=== PATIENT | male | born 1980 ===

== ENCOUNTER 2016-06-17 06:31 | Inpatient (IN) | payer MEDICAID, OTHER ==
[2016-06-17 06:36] VITALS: BMI 29.7
--- NOTE | 2016-06-17 06:49 | ED PDOC ---
Arrival/HPI - General Chief Complaint: Abdominal Pain Time Seen by Provider: 06/17/16 06:46 Historian: Patient - History of Present Illness Narrative History of Present Illness (Text): 06/17/16 06:47 Leonardo Beavers is a 35 year old male, whose past medical history includes pancreatitis and alcohol abuse, who presents to the Emergency department complaining of epigastric/LUQ pain for the past few hours. Patient states symptoms are consistent with previous pancreatitis flare-ups and notes his last alcoholic drink was earlier today. Patient also reports associated nausea. Patient denies any fever, chills, chest pain, shortness of breath, vomiting, diarrhea, urinary symptoms, back pain, neck pain, headache, dizziness, or any other complaints. Time/Duration: 4-6 hours Symptom Onset: Gradual Symptom Course: Unchanged Activities at Onset: Rest, Light Context: Home Past Medical History - Provider Review Nursing Documentation Reviewed: Yes - Cardiac Hx Cardiac Disorders: No - Pulmonary Hx Respiratory Disorders: No - Neurological Hx Neurological Disorder: No - HEENT Hx HEENT Disorder: No - Renal Hx Renal Disorder: No - Endocrine/Metabolic Hx Endocrine Disorders: No - Hematological/Oncological Hx Blood Disorders: No - Integumentary Hx Dermatological Disorder: No - Musculoskeletal/Rheumatological Hx Musculoskeletal Disorders: No - Gastrointestinal Hx Gastrointestinal Disorders: Yes Hx Gastritis: Yes Hx Pancreatitis: Yes - Genitourinary/Gynecological Hx Genitourinary Disorders: No - Psychiatric Hx Psychophysiologic Disorder: No Hx Substance Use: Yes (marijuana) - Surgical History Other/Comment: dental surgery Family/Social History - Physician Review Nursing Documentation Reviewed: Yes Family/Social History: No Known Family HX Smoking Status: Light Smoker < 10 Cigarettes Daily Hx Alcohol Use: Yes Frequency of alcohol use: Daily Hx Substance Use: Yes (marijuana) Allergies/Home Meds Allergies/Adverse Reactions: Allergies No Known Allergies Allergy (Verified 06/17/16 06:35) Review of Systems - Physician Review All systems were reviewed & negative as marked: Yes - Review of Systems Constitutional: Normal. absent: Fevers Eyes: Normal ENT: Normal Respiratory: Normal. absent: SOB, Cough Cardiovascular: Normal. absent: Chest Pain Gastrointestinal: Abdominal Pain Genitourinary Male: Normal. absent: Dysuria, Frequency, Hematuria, Urinary Output Changes Musculoskeletal: Normal. absent: Back Pain, Neck Pain Skin: Normal. absent: Rash Neurological: Normal. absent: Headache, Dizziness Endocrine: Normal Hemo/Lymphatic: Normal Psychiatric: Normal Physical Exam Vital Signs Reviewed: Yes Vital Signs Temp Pulse Resp BP Pulse Ox 06/17/16 06:43 98.5 F 120 H 16 119/105 H 100 Temperature: Afebrile Blood Pressure: Normal Pulse: Regular Respiratory Rate: Normal Appearance: Positive for: Well-Appearing, Non-Toxic, Comfortable Pain Distress: None Mental Status: Positive for: Alert and Oriented X 3 - Systems Exam Head: Present: Atraumatic, Normocephalic Pupils: Present: PERRL Extroacular Muscles: Present: EOMI Conjunctiva: Present: Normal Mouth: Present: Moist Mucous Membranes Neck: Present: Normal Range of Motion Respiratory/Chest: Present: Clear to Auscultation, Good Air Exchange. No: Respiratory Distress, Accessory Muscle Use Cardiovascular: Present: Regular Rate and Rhythm, Normal S1, S2. No: Murmurs Abdomen: Present: Tenderness (Epigastric/LUQ tenderness), Normal Bowel Sounds. No: Distention, Peritoneal Signs Back: Present: Normal Inspection Upper Extremity: Present: Normal Inspection. No: Cyanosis, Edema Lower Extremity: Present: Normal Inspection. No: Edema Neurological: Present: GCS=15, CN II-XII Intact, Speech Normal, Motor Func Grossly Intact, Normal Sensory Function Skin: Present: Warm, Dry, Normal Color. No: Rashes Psychiatric: Present: Alert, Oriented x 3, Normal Insight, Normal Concentration Medical Decision Making ED Course and Treatment: 06/17/16 06:47 Impression: 35 year old male complaining of epigastric/LUQ pain for the past few hours. Differential Diagnosis include but are not limited to: Plan: -- EKG -- Chest X-ray -- Labs, lipase -- Urinalysis -- IV fluids -- Zofran -- Pepcid -- Morphine -- Reassess and disposition Progress Notes: Reviewed EKG, sinus tachycardia at [address] bpm[address] Non-specific ST/T wave changes. 06/17/16 07:00 - RAD Interpretation Radiology Orders: 06/17/16 06:50 CHEST PORTABLE [RAD] Stat - Medication Orders Current Medication Orders: Sodium Chloride (Sodium Chloride 0.9%) 1,000 mls @ 999 mls/hr IV .Q1H1M STA Stop: 06/17/16 07:52 Last Admin: 06/17/16 06:56 Dose: 999 mls/hr Discontinued Medications Famotidine (Pepcid) 20 mg IVP STAT STA Stop: 06/17/16 06:53 Last Admin: 06/17/16 06:57 Dose: 20 mg Morphine Sulfate (Morphine) 4 mg IVP STAT STA Stop: 06/17/16 06:53 Last Admin: 06/17/16 06:58 Dose: 4 mg Morphine Sulfate (Morphine) Confirm Administered Dose 4 mg .ROUTE .STK-MED ONE Stop: 06/17/16 06:58 Last Admin: 06/17/16 06:58 Dose: Ondansetron HCl (Zofran Inj) 4 mg IVP ONCE ONE Stop: 06/17/16 06:53 Last Admin: 06/17/16 06:58 Dose: 4 mg - Transfer of Care Patient signed out to :Fortunato Garcia Pending Labs:: Labs/xray/reassess/final disposition - Scribe Statement The provider has reviewed the documentation as recorded by the Scribvaishnavi Mancilla All medical record entries made by the Radhaibvaishnavi were at my direction and personally dictated by me. I have reviewed the chart and agree that the record accurately reflects my personal performance of the history, physical exam, medical decision making, and the department course for this patient. I have also personally directed, reviewed, and agree with the discharge instructions and disposition. Disposition/Present on Arrival - Present on Arrival Any Indicators Present on Arrival: No History of DVT/PE: No History of Uncontrolled Diabetes: No Urinary Catheter: No History of Decub. Ulcer: No History Surgical Site Infection Following: None - Disposition Have Diagnosis and Disposition been Completed?: No Diagnosis: Abdominal pain Disposition Time: 07:00 Condition: STABLE
[2016-06-17] MEDS ORDERED: Morphine 4 mg/ml ISec IVP STA (06:52)
[2016-06-17] MEDS ORDERED: Sodium Chloride 0.9% 1,000 ML IV STA ×2 (06:52→07:45)
[2016-06-17] MEDS ORDERED: Morphine 4 mg/ml ISec ONE (06:57)
[2016-06-17 07:02] LABS: HEMATOCRIT 45.2 % (42.0-52.0); MEAN CELL VOLUME 94.8 fL (80.0-105.0); MEAN CORPUSCULAR HEMOGLOBIN 34.4 pg (25.0-35.0); MEAN CORPUSCULAR HGB CONC 36.3 g/dl (31.0-37.0); MEAN PLATELET VOLUME 11.2 fl (7.0-11.0); RED CELL DISTRIBUTION WIDTH 12.6 % (11.5-14.5); WHITE BLOOD COUNT 6.2 10^3/ul (4.5-11.0)
[2016-06-17 07:16] LABS: ALB/GLOB RATIO 1.2 (1.1-1.8); ALKALINE PHOSPHATASE 86 U/L (38-133); ALT/SGPT 100 U/L (7-56); AST/SGOT 87 U/L (15-59); BILIRUBIN,TOTAL 0.9 mg/dL (0.2-1.3); BLOOD UREA NITROGEN 9 mg/dL (7-21); CALCIUM 9.8 mg/dL (8.4-10.5); CARBON DIOXIDE 22 mmol/L (21-33); CHLORIDE 103 mmol/L (98-107); GFR AFRICAN-AMERICAN > 60; GLUCOSE,RANDOM 113 mg/dL (70-110); POTASSIUM 4.1 mmol/L (3.6-5.0); SODIUM 144 mmol/L (132-148); TOTAL PROTEIN 9.2 g/dL (5.8-8.3)
[2016-06-17 07:44] LABS: LIPASE 4524 U/L (23-300)
--- NOTE | 2016-06-17 07:57 | ED PDOC ---
Physical Exam Vital Signs Temp Pulse Resp BP Pulse Ox 06/17/16 10:36 97.8 F 93 H 18 129/93 H 100 06/17/16 09:27 98.2 F 98 H 18 153/95 H 97 06/17/16 06:43 98.5 F 120 H 16 119/105 H 100 Medical Decision Making ED Course and Treatment: 06/17/16 07:00 Patient signed out to me by Dr. Rodriguez. Follow up labs, X-Ray, Reeval, and Dispo. Patient is stable. No signs of alcohol withdrawal. No tremors. No faciculations. 06/17/16 07:27 Patient is complaining of abdominal discomfort, epigastric & LUQ tenderness with guarding. No peritoneal signs. Morphine IV ordered. 06/17/16 07:44 Chest x-ray read by me shows no pneumothorax, no pneumonia, no cardiomegaly, no infiltrates. 06/17/16 08:14 Patient continued to complain of abdominal pain. Dilaudid IV ordered. Labs showed elevated lipase consistent with pancreatitis. Discussed case with Dr. Soriano who accepted the case to the Medicine floor. Will continue to hydrate patient. - Lab Interpretations Lab Results: 06/17/16 05:50 06/17/16 05:50 Lab Results 06/17/16 05:50: WBC 6.2, RBC 4.77, Hgb 16.4, Hct 45.2, MCV 94.8, MCH 34.4, MCHC 36.3, RDW 12.6, Plt Count 258, MPV 11.2 H 06/17/16 05:50: Sodium 144, Potassium 4.1, Chloride 103, Carbon Dioxide 22, Anion Gap 23 H, BUN 9, Creatinine 0.8, Est GFR ( Amer) > 60, Est GFR (Non -Af Amer) > 60, Random Glucose 113 H, Calcium 9.8, Total Bilirubin 0.9, AST 87 H , ALT 100 H, Alkaline Phosphatase 86, Total Protein 9.2 H, Albumin 5.0 H, Globulin 4.2, Albumin/Globulin Ratio 1.2, Lipase 4524 H - RAD Interpretation Radiology Orders: 06/17/16 06:50 CHEST PORTABLE [RAD] Stat - Medication Orders Current Medication Orders: Hydromorphone HCl (Dilaudid) 1 mg IVP Q4H PRN PRN Reason: Pain, severe (8-10) Lorazepam (Ativan) 2 mg IVP Q3H PRN; Protocol PRN Reason: Agitation Lorazepam (Ativan) 2 mg IVP Q6H MICHELE PRN Reason: Protocol Ondansetron HCl (Zofran Inj) 4 mg IVP Q6H PRN PRN Reason: Nausea/Vomiting Pantoprazole Sodium (Protonix Inj) 40 mg IVP DAILY MICHELE Discontinued Medications Famotidine (Pepcid) 20 mg IVP STAT STA Stop: 06/17/16 06:53 Last Admin: 06/17/16 06:57 Dose: 20 mg Hydromorphone HCl (Dilaudid) 1 mg IVP STAT STA Stop: 06/17/16 08:41 Last Admin: 06/17/16 09:15 Dose: 1 mg Sodium Chloride (Sodium Chloride 0.9%) 1,000 mls @ 999 mls/hr IV .Q1H1M STA Stop: 06/17/16 07:52 Last Admin: 06/17/16 06:56 Dose: 999 mls/hr Sodium Chloride (Sodium Chloride 0.9%) 1,000 mls @ 999 mls/hr IV .Q1H1M STA Stop: 06/17/16 08:45 Last Admin: 06/17/16 07:52 Dose: 999 mls/hr Multivitamins/Vitamin C 10 ml/Thiamine HCl 100 mg/ Folic Acid 1 mg/ Dextrose 1, 011.2 mls @ 1,000 mls/hr IV .Q1H1M ONE Stop: 06/17/16 09:59 Morphine Sulfate (Morphine) 4 mg IVP STAT STA Stop: 06/17/16 06:53 Last Admin: 06/17/16 06:58 Dose: 4 mg Morphine Sulfate (Morphine) Confirm Administered Dose 4 mg .ROUTE .STK-MED ONE Stop: 06/17/16 06:58 Last Admin: 06/17/16 06:58 Dose: Morphine Sulfate (Morphine) 6 mg IVP STAT STA Stop: 06/17/16 07:32 Last Admin: 06/17/16 07:43 Dose: 6 mg Ondansetron HCl (Zofran Inj) 4 mg IVP ONCE ONE Stop: 06/17/16 06:53 Last Admin: 06/17/16 06:58 Dose: 4 mg - Scribe Statement The provider has reviewed the documentation as recorded by the Tasneem Mg Provider Attestation: All medical record entries made by the Tasneem were at my direction and personally dictated by me. I have reviewed the chart and agree that the record accurately reflects my personal performance of the history, physical exam, medical decision making, and the department course for this patient. I have also personally directed, reviewed, and agree with the discharge instructions and disposition. Disposition/Present on Arrival - Present on Arrival Any Indicators Present on Arrival: No History of DVT/PE: No History of Uncontrolled Diabetes: No Urinary Catheter: No History of Decub. Ulcer: No History Surgical Site Infection Following: None - Disposition Have Diagnosis and Disposition been Completed?: Yes Diagnosis: Abdominal pain Disposition: HOSPITALIZED Disposition Time: 10:40 Patient Plan: Admission Patient Problems: Current Active Problems Problem Status Onset Abdominal pain Acute Condition: FAIR
[2016-06-17] MEDS ORDERED: HYDROmorphone 1 mg/ml ISec IVP STA (08:40)
[2016-06-17] MEDS ORDERED: Multivitamin (MVI) 10 ML, Thiamine 100 MG, Folic Acid 1 MG in Dextrose 5% In Water 1,00... IV ONE (08:59)
[2016-06-17] MEDS ORDERED: HYDROmorphone 1 mg/ml ISec IVP PRN ×2 (09:01→16:00)
[2016-06-17 09:35] LABS: CHOLESTEROL 285 mg/dL (130-200)
[2016-06-17 09:38] LABS: URINE BILIRUBIN NEGATIVE (NEGATIVE); URINE BLOOD NEGATIVE (NEGATIVE); URINE GLUCOSE (UA) NEGATIVE (NEGATIVE); URINE KETONE TRACE mg/dL (NEGATIVE); URINE LEUKOCYTE ESTERASE NEGATIVE Leu/uL (NEGATIVE); URINE PROTEIN NEGATIVE mg/dL (<30 mg/dL); URINE UROBILINOGEN 0.2 E.U./dL (<1 E.U./dL)
[2016-06-17 09:40] LABS: URINE APPEARANCE CLEAR (CLEAR); URINE COLOR YELLOW (YELLOW)
--- NOTE | 2016-06-17 10:52 | CP.PCM.HP ---
<Senait Christina - Last Filed: 06/17/16 10:46> History of Present Illness - History of Present Illness History of Present Illness: CC; abd pain 35 year old male with past medical history of ETOH abuse, depression presents with abdominal pain ongoing for 3 days. patient states that pain has been progressively worsening. Pain is located in epigastric region and LUQ of abdomen and it radiates to straight back. Patient has been taking Motrin 600 mg for pain for past 3 days without relief. Patient also c/o of nausea and dry heaving with the pain ongoing since this morning. Patient states that he had one episode of pancreatitis 4 months ago and this pain is similar to his previous episode of pancreatitis. patient drinks ETOH 2 pints daily. Last drink was this morning. Denies having any fevers, chills, CP, SOB, anxiety, tremors, fevers or chills. PMHx: stated above Sx: correction of deviated spetum, wisdom teeth removal Meds: Pt unsure about the names of medications. He goes to [facility] in [facility] (closed today) Social: Drinks daily 2 pints, occasional tobacco and marijuana use. Lives with parents and is currently unemployed NKDA Present on Admission - Present on Admission Any Indicators Present on Admission: No Review of Systems - Review of Systems All systems: reviewed and no additional remarkable complaints except Past Patient History - Infectious Disease Hx of Infectious Diseases: None - Past Social History Smoking Status: Light Smoker < 10 Cigarettes Daily Chewing Tobacco Use: No Cigar Use: No Alcohol: > 2 Drinks/Day Drugs: Cannabis Home Situation {Lives}: With Family - CARDIAC Hx Cardiac Disorders: No - PULMONARY Hx Respiratory Disorders: No - NEUROLOGICAL Hx Neurological Disorder: No - HEENT Hx HEENT Problems: No - RENAL Hx Chronic Kidney Disease: No - ENDOCRINE/METABOLIC Hx Endocrine Disorders: No - HEMATOLOGICAL/ONCOLOGICAL Hx Blood Disorders: No - INTEGUMENTARY Hx Dermatological Problems: No - MUSCULOSKELETAL/RHEUMATOLOGICAL Hx Musculoskeletal Disorders: No - GASTROINTESTINAL Hx Gastrointestinal Disorders: Yes Hx Gastritis: Yes Hx Pancreatitis: Yes - GENITOURINARY/GYNECOLOGICAL Hx Genitourinary Disorders: No - PSYCHIATRIC Hx Psychophysiologic Disorder: No Hx Substance Use: Yes (marijuana) - SURGICAL HISTORY Other/Comment: dental surgery Meds Allergies/Adverse Reactions: Allergies Allergy/AdvReac Type Severity Reaction Status Date / Time No Known Allergies Allergy Verified 06/17/16 06:35 Physical Exam - Constitutional Appears: Non-toxic, No Acute Distress - Head Exam Head Exam: ATRAUMATIC - Eye Exam Eye Exam: EOMI Pupil Exam: PERRL - ENT Exam ENT Exam: Mucous Membranes Moist - Respiratory Exam Respiratory Exam: Clear to Auscultation Bilateral, NORMAL BREATHING PATTERN. absent: Rales, Rhonchi, Wheezes - Cardiovascular Exam Cardiovascular Exam: REGULAR RHYTHM, +S1, +S2. absent: Diastolic murmur, Gallop , Rubs, Systolic Murmur - GI/Abdominal Exam GI & Abdominal Exam: Normal Bowel Sounds, Soft, Tenderness (epigastric, RUQ and LUQ region ). absent: Distended, Firm, Guarding, Rigid - Extremities Exam Extremities exam: Negative for: pedal edema, tenderness - Neurological Exam Neurological exam: Alert, Oriented x3 - Psychiatric Exam Psychiatric exam: Normal Affect, Normal Mood - Skin Skin Exam: Dry, Intact, Normal Color, Warm Results - Vital Signs Recent Vital Signs: Last Vital Signs Temp 97.8 F 06/17/16 10:36 Pulse 93 H 06/17/16 10:36 Resp 18 06/17/16 10:36 BP 129/93 H 06/17/16 10:36 Pulse Ox 100 06/17/16 10:36 - Labs Result Diagrams: 06/17/16 05:50 06/17/16 05:50 Labs: Laboratory Results - last 24 hr 06/17/16 06/17/16 06/17/16 09:21 09:21 09:27 Triglycerides 404 H Cholesterol 285 H LDL Cholesterol Direct 173 H HDL Cholesterol 49 Urine Color Yellow Urine Appearance Clear Urine pH 7.0 Ur Specific Crucible 1.015 Urine Protein Negative Urine Glucose (UA) Negative Urine Ketones Trace H Urine Blood Negative Urine Nitrate Negative Urine Bilirubin Negative Urine Urobilinogen 0.2 Ur Leukocyte Esterase Negative Urine Opiates Screen Urine Methadone Screen Ur Barbiturates Screen Ur Phencyclidine Scrn Ur Amphetamines Screen U Benzodiazepines Scrn U Oth Cocaine Metabols U Cannabinoids Screen Alcohol, Quantitative 191 H 06/17/16 09:27 Triglycerides Cholesterol LDL Cholesterol Direct HDL Cholesterol Urine Color Urine Appearance Urine pH Ur Specific Crucible Urine Protein Urine Glucose (UA) Urine Ketones Urine Blood Urine Nitrate Urine Bilirubin Urine Urobilinogen Ur Leukocyte Esterase Urine Opiates Screen Positive H Urine Methadone Screen Negative Ur Barbiturates Screen Negative Ur Phencyclidine Scrn Negative Ur Amphetamines Screen Negative U Benzodiazepines Scrn Negative U Oth Cocaine Metabols Negative U Cannabinoids Screen Positive H Alcohol, Quantitative Assessment & Plan - Assessment and Plan (Free Text) Assessment: 35 year old male with past medical history of ETOH abuse and depression is admitted for acute pancreatitis. On blood work, lipase is 4524. LFTs are elevated at AST 87 ALT 100. WBC count is WNL. 1. Acute pancreatitis - GI consult requested - Abd US ordered - NPO - NS 100 cc - Zofran - Protonix - pain management with dilaudid 1 q4 prn 2. ETOH withdrawal - CIWA protocol - Ativan 2q3 prn & 2 q6 prn - admit to tele - Clonidine .1 mg tid prn for htn - banana bag - Seizure & fall precaution 3. Transaminitis - Abd US ordered - hep panel ordered - Will continue to monitor 4. Depression - Patient's pharmacy needs to be called for home medications Prophylaxis - SCDS Case discussed with attending Dr. Soriano - Date & Time Date: 06/17/16 Time: 10:54 <Jonathan Soriano - Last Filed: 06/17/16 11:26> Results - Vital Signs Recent Vital Signs: Last Vital Signs Temp 97.4 F L 06/17/16 10:52 Pulse 88 06/17/16 10:52 Resp 18 06/17/16 10:52 BP 145/77 06/17/16 10:52 Pulse Ox 100 06/17/16 10:36 - Labs Result Diagrams: 06/17/16 05:50 06/17/16 05:50 Labs: Laboratory Results - last 24 hr 06/17/16 06/17/16 06/17/16 09:21 09:21 09:27 Triglycerides 404 H Cholesterol 285 H LDL Cholesterol Direct 173 H HDL Cholesterol 49 Urine Color Yellow Urine Appearance Clear Urine pH 7.0 Ur Specific Crucible 1.015 Urine Protein Negative Urine Glucose (UA) Negative Urine Ketones Trace H Urine Blood Negative Urine Nitrate Negative Urine Bilirubin Negative Urine Urobilinogen 0.2 Ur Leukocyte Esterase Negative Urine Opiates Screen Urine Methadone Screen Ur Barbiturates Screen Ur Phencyclidine Scrn Ur Amphetamines Screen U Benzodiazepines Scrn U Oth Cocaine Metabols U Cannabinoids Screen Alcohol, Quantitative 191 H 06/17/16 09:27 Triglycerides Cholesterol LDL Cholesterol Direct HDL Cholesterol Urine Color Urine Appearance Urine pH Ur Specific Crucible Urine Protein Urine Glucose (UA) Urine Ketones Urine Blood Urine Nitrate Urine Bilirubin Urine Urobilinogen Ur Leukocyte Esterase Urine Opiates Screen Positive H Urine Methadone Screen Negative Ur Barbiturates Screen Negative Ur Phencyclidine Scrn Negative Ur Amphetamines Screen Negative U Benzodiazepines Scrn Negative U Oth Cocaine Metabols Negative U Cannabinoids Screen Positive H Alcohol, Quantitative Attending/Attestation - Attestation I have personally seen and examined this patient.: Yes I have fully participated in the care of the patient.: Yes I have reviewed all pertinent clinical information: Yes Notes (Text): 06/17/16 11:21 35 year old male with past medical history of chronic ETOH abuse and depression presents with abdominal pain secondary to acute pancreatitis. He has elevated lipase and LFTs as well. Hepatitis panel is ordered. US abdomen shows fatty liver without gallstones. He is NPO on iv fluids, analgesics and antiemetics. GI evaluation was requested. Will start banana bag and ativan lynda/prn for withdrawal symptoms. He was counselled on alcohol abstinence. Can resume antidepressant once home medication is confirmed from pharmacy. Jonathan Soriano MD Hospitalist.
[2016-06-17] MEDS ORDERED: Dextrose 5%/0.9% NS 1,000 ML IV SCH (11:15)
--- NOTE | 2016-06-17 11:16 | US ---
HISTORY: abd pain COMPARISON: None. TECHNIQUE: Sonographic evaluation of the abdomen. Note the examination is limited due to large body habitus and bowel gas. FINDINGS: LIVER: Measures 14.26 cm. Increased echogenicity of the liver parenchyma. Findings likely due to fatty infiltration however possibility of other infiltrative hepatocellular disease process not excluded. No mass. No intrahepatic bile duct dilatation. No evidence of ascites GALLBLADDER: Unremarkable. No gallstones. COMMON BILE DUCT: Measures 03.5 mm. No stones. No dilatation. PANCREAS: The pancreas poorly delineated. . No mass. No ductal dilatation. RIGHT KIDNEY: Measures 10.7 x 5.1 x 6.2 cm.Cm. Normal echogenicity. No calculus, mass, or hydronephrosis. LEFT KIDNEY: Measures 11.4 x 4.9 x 6.2cm. Normal echogenicity. No calculus, mass, or hydronephrosis. SPLEEN: Spleen is mildly enlarged measuring approximately 14.3 cm in greatest dimension. . No mass. AORTA: No aneurysmal dilatation. IVC: Unremarkable. OTHER FINDINGS: None. IMPRESSION: Limited study as detailed above. Findings consistent with fatty infiltration however other infiltrative hepatocellular disease process not completely excluded. Mild splenomegaly
--- NOTE | 2016-06-17 11:27 | RAD ---
HISTORY: abdominal pain COMPARISON: No prior FINDINGS: LUNGS: Poor inspiration with low lung volumes, mild crowded bronchovascular markings and mild bibasilar atelectasis. PLEURA: No significant pleural effusion identified, no pneumothorax apparent. CARDIOVASCULAR: Normal. OSSEOUS STRUCTURES: No significant abnormalities. VISUALIZED UPPER ABDOMEN: Normal. OTHER FINDINGS: None. IMPRESSION: Poor inspiration with low lung volumes, mild crowded bronchovascular markings and mild bibasilar atelectasis.
--- NOTE | 2016-06-17 13:30 | CARD ---
APPROVED REPORT EKG Measurement Heart [id number] <Conclusion> Sinus tachycardia with short VA Inferior infarct, age undetermined Abnormal ECG
[2016-06-17] MEDS ORDERED: HYDROmorphone 0.5 mg/0.5 ml ISec IVP STA (13:45)
[2016-06-17] MEDS ORDERED: HYDROmorphone 2 mg/ml ISec IVP PRN (13:54)
[2016-06-17] MEDS: HYDROmorphone 2 mg/ml ISec IVP PRN ×2 (17:23→22:08)
--- NOTE | 2016-06-17 22:16 | CON ---
DATE: 06/17/2016 SUBJECTIVE: This 35-year-old patient admitted with abdominal pain worsening for the past 3 days. He has a long history of ETOH alcohol. Last drink was about 2 hours before this ER visit. He had an episode of pancreatitis in the past about 4 months ago. He drinks alcohol about 2 pints a day and he is also taking Advil on and off for the pain. PAST MEDICAL HISTORY: Significant as above. SURGICAL HISTORY: Significant for surgery for deviated septum. The patient was last hospitalized in the [facility], for pancreatitis. SOCIAL HISTORY: Alcohol as above. Positive for occasional smoking and also marijuana. ALLERGIES: No known drug allergy. REVIEW OF SYSTEMS: Positive as above. Other systems reviewed and negative. PHYSICAL EXAMINATION: GENERAL: The patient is lying on the bed, not in acute distress. VITAL SIGNS: Temperature 97.4, blood pressure 140/93, respirations 18, and O2 saturation is 98%, pulse 88. HEENT: Atraumatic, anicteric. NECK: Supple. HEART: S1, S2 heard. LUNGS: Bilateral air entry present. ABDOMEN: Soft. There was tenderness present in the epigastric area. There is no rebound or guarding. EXTREMITIES: No edema. No cyanosis. LABORATORY DATA: Hemoglobin is 16.4, hematocrit 45.2, WBC 6.2, platelets 258. Chemistry showed total bilirubin 0.9, AST 87, ALT 100, Triglyceride 404, cholesterol 285, lipase 4534. The patient did have an ultrasound scan of the abdomen. Showed no gallstones, unremarkable, pancreas is poorly visualized. IMPRESSION: This 35-year-old patient admitted with abdominal pain, elevated lipase levels, history of alcohol use. The more likely cause is acute pancreatitis, probably secondary to alcohol. Elevated liver function tests may be related to alcohol use, but will need to rule out other chronic liver disease including hepatitis. The patient has been on omeprazole at home. The other problems include anxiety. The patient is also taking gabapentin, probably for neuropathy. RECOMMENDATION: 1. N.P.O. 2. IV fluids. 4. Serum B12, folate levels. 5. Will consider CT of the abdomen and pelvis with p.o. and IV contrast to further delineate the pancreas, which we will consider after the review of the labs in the a.m. As an acute pancreatitis, the first thing to do using IV hydration and CAT scan can be considered electively. CAT scan should be considered only after 24 to 48 hours after IV fluid resuscitation and optimization of the fluid balance. We will continue to closely follow up his care and suggest further management based on the clinical course. Sherman Fisher MD cc: [id number] TT: 06/17/2016 22:15:11 Confirmation # [id number] Dictation # [id number] MÓNICA
[2016-06-18] MEDS: HYDROmorphone 2 mg/ml ISec IVP PRN ×3 (04:23→20:57)
[2016-06-18] MEDS ORDERED: HYDROmorphone 1 mg/ml ISec IVP STA (06:02)
[2016-06-18] MEDS ORDERED: Metoprolol 1 mg/ml Inj IVP ONE ×2 (06:03→12:14)
[2016-06-18 06:30] LABS: HEMATOCRIT 48.7 % (42.0-52.0); MEAN CELL VOLUME 96.2 fL (80.0-105.0); MEAN CORPUSCULAR HEMOGLOBIN 34.2 pg (25.0-35.0); MEAN CORPUSCULAR HGB CONC 35.5 g/dl (31.0-37.0); MEAN PLATELET VOLUME 11.6 fl (7.0-11.0); PLATELET COUNT 171 10^3/uL (120.0-450.0); RED CELL DISTRIBUTION WIDTH 12.8 % (11.5-14.5); WHITE BLOOD COUNT 13.9 10^3/ul (4.5-11.0)
[2016-06-18 06:35] LABS: ADD MANUAL DIFF? YES
[2016-06-18 06:46] LABS: ALB/GLOB RATIO 1.1 (1.1-1.8); CARBON DIOXIDE 21 mmol/L (21-33); GFR AFRICAN-AMERICAN > 60; TOTAL PROTEIN 7.6 g/dL (5.8-8.3)
[2016-06-18 07:02] LABS: ALKALINE PHOSPHATASE 66 U/L (38-133); ALT/SGPT 71 U/L (7-56); AST/SGOT 62 U/L (15-59); BILIRUBIN,TOTAL 1.2 mg/dL (0.2-1.3); BLOOD UREA NITROGEN 8 mg/dL (7-21); CALCIUM 8.3 mg/dL (8.4-10.5); CHLORIDE 102 mmol/L (98-107); GLUCOSE,RANDOM 200 mg/dL (70-110); POTASSIUM 4.6 mmol/L (3.6-5.0); SODIUM 136 mmol/L (132-148)
[2016-06-18 07:20] LABS: LIPASE 3556 U/L (23-300)
[2016-06-18 07:34] LABS: NEUTROPHIL 89 % (50.0-70.0)
[2016-06-18] MEDS ORDERED: Metoprolol 1 mg/ml Inj IVP STA (07:49)
--- NOTE | 2016-06-18 15:34 | CP.PCM.PN ---
<Heath Cody - Last Filed: 06/18/16 15:31> Subjective - Date & Time of Evaluation Date of Evaluation: 06/18/16 Time of Evaluation: 08:00 - Subjective Subjective: Dr. Cody PGY 1 Hospitalist Note Patient seen and evaluated at bedside with attending physician. He states he is shaky and feels his heart racing but denies any chest pain, SOB, nausea, vomiting, fever, or chills. He continues to have abdominal pain but the medication is keeping it under control. Per nursing, he has had persistent tachycardia and elevated BP. No other adverse events reported. Objective - Vital Signs/Intake and Output Vital Signs (last 24 hours): Temp Pulse Resp BP Pulse Ox 98.9 F 152 H 20 132/110 H 97 06/18/16 11:44 06/18/16 12:39 06/18/16 11:44 06/18/16 12:39 06/18/16 05:20 Intake and Output: 06/18/16 06/18/16 06:59 18:59 Intake Total 1320 0 Output Total 450 100 Balance 870 -100 - Medications Medications: Current Medications Chlordiazepoxide (Librium) 50 mg PO Q6H MICHELE PRN Reason: Protocol Last Admin: 06/18/16 13:22 Dose: 50 mg Clonidine HCl (Catapres) 0.1 mg PO Q6H PRN PRN Reason: Systolic Blood Pressure Last Admin: 06/18/16 07:55 Dose: 0.1 mg Hydromorphone HCl (Dilaudid) 2 mg IVP Q6H PRN PRN Reason: Pain, severe (8-10) Last Admin: 06/18/16 11:48 Dose: 2 mg Dextrose/Sodium Chloride (Dextrose 5%/0.9% Ns 1000 Ml) 1,000 mls @ 100 mls/hr IV .Q10H MICHELE Last Admin: 06/17/16 11:39 Dose: 100 mls/hr Lorazepam (Ativan) 2 mg IVP Q3H PRN; Protocol PRN Reason: Agitation Last Admin: 06/18/16 11:44 Dose: 2 mg Ondansetron HCl (Zofran Inj) 4 mg IVP Q6H PRN PRN Reason: Nausea/Vomiting Pantoprazole Sodium (Protonix Inj) 40 mg IVP DAILY MICHELE Last Admin: 06/18/16 08:53 Dose: 40 mg - Labs Labs: 06/18/16 06:20 06/18/16 06:20 - Constitutional Appears: Non-toxic, No Acute Distress - Head Exam Head Exam: ATRAUMATIC, NORMOCEPHALIC - Eye Exam Eye Exam: EOMI, Normal appearance, PERRL Pupil Exam: NORMAL ACCOMODATION, PERRL - ENT Exam ENT Exam: Mucous Membranes Moist, Normal Oropharynx - Neck Exam Neck Exam: Full ROM, Normal Inspection - Respiratory Exam Respiratory Exam: Clear to Ausculation Bilateral, NORMAL BREATHING PATTERN. absent: Rales, Rhonchi, Wheezes - Cardiovascular Exam Cardiovascular Exam: Tachycardia, +S1, +S2. absent: Gallop, Rubs, Murmur - GI/Abdominal Exam GI & Abdominal Exam: Soft, Tenderness (epigastric), Normal Bowel Sounds. absent : Distended, Firm, Guarding - Extremities Exam Extremities Exam: Normal Inspection. absent: Pedal Edema, Tenderness - Back Exam Back Exam: NORMAL INSPECTION. absent: rash noted, tenderness - Neurological Exam Neurological Exam: Alert, Awake, CN II-XII Intact, Oriented x3 - Psychiatric Exam Psychiatric exam: Anxious - Skin Skin Exam: Dry, Intact, Normal Color, Warm Assessment and Plan - Assessment and Plan (Free Text) Assessment: 35 year old male with past medical history of ETOH abuse and depression is admitted for acute pancreatitis. On blood work, lipase is 4524 now 3556. LFTs are elevated but trending down. Mild leukocytosis but afebrile. Urine positive for opiates and cannabinoids. Plan: Acute pancreatitis * GI consulted, help appreciated * Afebrile w leukocytosis of 13.9 * ABD US showed findings consistent with fatty infiltration however other infiltrative hepatocellular disease not completely excluded [see full report] * Keep NPO * D5W @ 100 cc * Zofran * Protonix * pain management with dilaudid 2 q6 prn ETOH withdrawal * CIWA protocol * Start Librium 50 mg PO Q6H * Ativan 2q3 prn * on tele monitor * Seizure precaution * Fall precaution HTN * pain induced vs withdrawals * Clonidine .1 mg Q6H * Given Lopressor IV Transaminitis * ABD US showed findings consistent with fatty infiltration however other infiltrative hepatocellular disease not completely excluded [see full report] * hep panel ordered * Lipid panel: Triglycerides 404, Cholesterol 285, HDL 173, HDL 49 * Will continue to monitor Depression * Patient's pharmacy needs to be called for home medications Substance abuse * Urine tox positive for opiates and cannabinoids * alcohol level elevated * advised on cessation Prophylaxis * SCDS Case discussed with attending <Jonathan Soriano - Last Filed: 06/18/16 16:03> Objective - Vital Signs/Intake and Output Vital Signs (last 24 hours): Temp Pulse Resp BP Pulse Ox 98.9 F 152 H 20 132/110 H 97 06/18/16 11:44 06/18/16 12:39 06/18/16 11:44 06/18/16 12:39 06/18/16 05:20 Intake and Output: 06/18/16 06/18/16 06:59 18:59 Intake Total 1320 0 Output Total 450 100 Balance 870 -100 - Medications Medications: Current Medications Chlordiazepoxide (Librium) 50 mg PO Q6H MICHELE PRN Reason: Protocol Last Admin: 06/18/16 13:22 Dose: 50 mg Clonidine HCl (Catapres) 0.1 mg PO Q6H PRN PRN Reason: Systolic Blood Pressure Last Admin: 06/18/16 07:55 Dose: 0.1 mg Hydromorphone HCl (Dilaudid) 2 mg IVP Q6H PRN PRN Reason: Pain, severe (8-10) Last Admin: 06/18/16 11:48 Dose: 2 mg Dextrose/Sodium Chloride (Dextrose 5%/0.9% Ns 1000 Ml) 1,000 mls @ 100 mls/hr IV .Q10H [facility] Last Admin: 06/17/16 11:39 Dose: 100 mls/hr Lorazepam (Ativan) 2 mg IVP Q3H PRN; Protocol PRN Reason: Agitation Last Admin: 06/18/16 11:44 Dose: 2 mg Ondansetron HCl (Zofran Inj) 4 mg IVP Q6H PRN PRN Reason: Nausea/Vomiting Pantoprazole Sodium (Protonix Inj) 40 mg IVP DAILY [facility] Last Admin: 06/18/16 08:53 Dose: 40 mg - Labs Labs: 06/18/16 06:20 06/18/16 06:20 Attending/Attestation - Attestation I have personally seen and examined this patient.: Yes I have fully participated in the care of the patient.: Yes I have reviewed all pertinent clinical information, including history, physical exam and plan: Yes Notes (Text): 06/18/16 16:00 35 year old male with past medical history of chronic ETOH abuse and depression who presented with abdominal pain secondary to acute pancreatitis. He had elevated lipase and LFTs which are slowly improving. Hepatitis panel is pending. US abdomen showed fatty liver without gallstones. He is NPO on iv fluids, analgesics and antiemetics. GI evaluation was appreciated. Consider CT abd/pelvis in 24-48 hrs per GI recommendations. This morning he is hypertensive and tachycardic; consistent with ETOH withdrawal. He is s/p banana bag. He is on ativan prn. Librium 50mg q6h is added. He is also on clonidine 0.1mg q6h prn. He may receive lopressor prn if needed as well. TSH was normal. Echocardiogram is also ordered. He was counselled on alcohol abstinence. Lipid panel was reviewed. Consider starting cholesterol lowering agent once patient is eating and LFTs improve. Can resume antidepressant once home medication is confirmed from pharmacy. Jonathan Soriano MD Hospitalist.
[2016-06-18] MEDS: Dextrose 5%/0.9% NS 1,000 ML IV SCH (16:11)
--- NOTE | 2016-06-18 22:07 | CARD ---
APPROVED REPORT EKG Measurement Heart [id number] ID [id number] <Conclusion> Sinus tachycardia Inferior infarct, age undetermined Abnormal ECG
[2016-06-19] MEDS: Dextrose 5%/0.9% NS 1,000 ML IV SCH (02:25)
[2016-06-19] MEDS: HYDROmorphone 2 mg/ml ISec IVP PRN ×2 (04:50→12:55)
[2016-06-19] MEDS ORDERED: Metoprolol 1 mg/ml Inj IVP ONE (05:06)
[2016-06-19] MEDS ORDERED: Barium Sulfate Susp 2.1% w/v, 2.0% w/w 450 mL Bottle PO ONE (07:09)
--- NOTE | 2016-06-19 08:10 | PN ---
DATE: 06/18/2016 SUBJECTIVE: This patient was seen and evaluated earlier. The patient's girlfriend was at bedside. On examination, the patient is still complaining of significant epigastric abdominal pain. PHYSICAL EXAMINATION: VITAL SIGNS: Temperature is 99.3, pulse , blood pressure is 127/83. HEENT: Atraumatic, anicteric. NECK: Supple. HEART: S1, S2 heard. LUNGS: Bilateral normal vesicular breath sounds. ABDOMEN: Soft. There is tenderness present in the epigastric area. No rebound or guarding. EXTREMITIES: No edema noted. NEUROLOGIC: Alert, oriented. Moves all the extremities. LABORATORY DATA: Hemoglobin is 17.3, WBC count is elevated to 13.7, platelets 173. Total bilirubin is 1.2, AST 62, ALT 71, 235 . IMPRESSION: Acute pancreatitis, probably secondary to alcohol use. showed no gallstones. The patient had a similar episode in the past, admitted to the Hospital. The patient's alcohol in take was about 2 before the hospitalization, and his blood alcohol level was 191 at the time of admission. The patient also was marijuana positive. RECOMMENDATIONS: 1. Keep the patient n.p.o. 2. Would recommend mild fluid dehydration. 3. Would consider CT scan of the abdomen and pelvis with p.o. and IV contrast, pancreatic protocol, in a.m. Sherman Fisher MD cc: [id number] TT: 06/18/2016 23:20:23 Confirmation # [id number] Dictation # [id number] vn
[2016-06-19 08:30] LABS: ADD MANUAL DIFF? NO
[2016-06-19 08:39] LABS: BASO # 0.01 K/mm3 (0.0-2.0); BASO % 0.1 % (0.0-3.0); GRAN # 10.96 (1.4-6.5); GRAN % 79.4 % (50.0-68.0); HEMATOCRIT 43.7 % (42.0-52.0); LYMPH % 14.4 % (22.0-35.0); MEAN CELL VOLUME 96.3 fL (80.0-105.0); MEAN CORPUSCULAR HEMOGLOBIN 34.4 pg (25.0-35.0); MEAN CORPUSCULAR HGB CONC 35.7 g/dl (31.0-37.0); MEAN PLATELET VOLUME 11.9 fl (7.0-11.0); MONO # 0.8 (0.1-0.6); MONO % 6.1 % (1.0-6.0); PLATELET COUNT 133 10^3/uL (120.0-450.0); RED CELL DISTRIBUTION WIDTH 12.9 % (11.5-14.5); WHITE BLOOD COUNT 13.8 10^3/ul (4.5-11.0)
[2016-06-19 08:49] LABS: ALKALINE PHOSPHATASE 54 U/L (38-133); ALT/SGPT 57 U/L (7-56); AST/SGOT 81 U/L (15-59); BILIRUBIN,TOTAL 1.7 mg/dL (0.2-1.3); BLOOD UREA NITROGEN 21 mg/dL (7-21); CALCIUM 7.9 mg/dL (8.4-10.5); CARBON DIOXIDE 20 mmol/L (21-33); CHLORIDE 105 mmol/L (98-107); GFR AFRICAN-AMERICAN > 60; GLUCOSE,RANDOM 182 mg/dL (70-110); POTASSIUM 3.8 mmol/L (3.6-5.0); SODIUM 136 mmol/L (132-148); TOTAL PROTEIN 6.8 g/dL (5.8-8.3)
--- NOTE | 2016-06-19 09:28 | CP.PCM.PN ---
<Amanda Tate - Last Filed: 06/19/16 12:37> Subjective - Date & Time of Evaluation Date of Evaluation: 06/19/16 Time of Evaluation: 07:35 - Subjective Subjective: Pt seen and evaluated at bedside. Pt was standing and breathing comfortably. Denies n/v and continues to have epigastric pain. Not tremulous. Afebrile overnight. Objective - Vital Signs/Intake and Output Vital Signs (last 24 hours): Temp Pulse Resp BP Pulse Ox 98.7 F 147 H 20 130/90 96 06/19/16 05:48 06/19/16 05:48 06/19/16 05:48 06/19/16 05:48 06/19/16 05:48 Intake and Output: 06/19/16 06/19/16 06:59 18:59 Intake Total 0 Output Total 200 Balance -200 - Medications Medications: Current Medications Chlordiazepoxide (Librium) 50 mg PO Q6H MICHELE PRN Reason: Protocol Last Admin: 06/19/16 09:16 Dose: 50 mg Clonidine HCl (Catapres) 0.1 mg PO Q6H PRN PRN Reason: Systolic Blood Pressure Last Admin: 06/18/16 07:55 Dose: 0.1 mg Hydromorphone HCl (Dilaudid) 2 mg IVP Q6H PRN PRN Reason: Pain, severe (8-10) Last Admin: 06/19/16 04:50 Dose: 2 mg Dextrose/Sodium Chloride (Dextrose 5%/0.9% Ns 1000 Ml) 1,000 mls @ 125 mls/hr IV .Q8H [facility] Last Admin: 06/19/16 02:25 Dose: 125 mls/hr Lorazepam (Ativan) 2 mg IVP Q3H PRN; Protocol PRN Reason: Agitation Last Admin: 06/19/16 09:19 Dose: 2 mg Ondansetron HCl (Zofran Inj) 4 mg IVP Q6H PRN PRN Reason: Nausea/Vomiting Pantoprazole Sodium (Protonix Inj) 40 mg IVP DAILY [facility] Last Admin: 06/19/16 09:16 Dose: 40 mg - Labs Labs: 06/19/16 06:30 06/19/16 06:30 - Constitutional Appears: Non-toxic, No Acute Distress - Head Exam Head Exam: ATRAUMATIC, NORMOCEPHALIC - Eye Exam Eye Exam: EOMI, Normal appearance - Respiratory Exam Respiratory Exam: Clear to Ausculation Bilateral, NORMAL BREATHING PATTERN - GI/Abdominal Exam GI & Abdominal Exam: Soft. absent: Tenderness - Exam External exam: absent: Erythema, Lacerations - Extremities Exam Extremities Exam: Normal Capillary Refill, Normal Inspection - Back Exam Back Exam: absent: CVA tenderness (L), CVA tenderness (R) - Neurological Exam Neurological Exam: Alert, Awake - Skin Skin Exam: Intact, Warm Assessment and Plan - Assessment and Plan (Free Text) Assessment: 35 year old male with past medical history of ETOH abuse and depression is admitted for acute pancreatitis. On blood work, lipase is 4524 initially and is on downtrend. LFTs are elevated but trending down. Mild leukocytosis but afebrile. Urine positive for opiates and cannabinoids. Plan: Plan: Acute pancreatitis * GI consulted, help appreciated * Afebrile w leukocytosis of 13.8 * ABD US showed findings consistent with fatty infiltration of liver [see full report] * Keep NPO * NS @ 125 cc * Zofran * Protonix * pain management with dilaudid 2 q6 prn ETOH withdrawal * CIWA protocol * Librium 50 mg PO Q6H * Ativan 2q3 prn * on tele monitor * Seizure precaution * Fall precaution HTN * pain induced vs withdrawals * Clonidine .1 mg Q6H * Given Lopressor IV Transaminitis * ABD US showed findings consistent with fatty infiltration however other infiltrative hepatocellular disease not completely excluded [see full report] * hep panel ordered * Lipid panel: Triglycerides 404, Cholesterol 285, HDL 173, HDL 49 * Will continue to monitor Depression * Patient's pharmacy needs to be called for home medications Substance abuse * Urine tox positive for opiates and cannabinoids * alcohol level elevated * advised on cessation Prophylaxis * SCDS Case discussed with attending <Jazzy Osuna MD - Last Filed: 06/19/16 16:39> Objective - Vital Signs/Intake and Output Vital Signs (last 24 hours): Temp Pulse Resp BP Pulse Ox 99.1 F 135 H 22 145/98 H 96 06/19/16 12:00 06/19/16 12:00 06/19/16 12:00 06/19/16 12:00 06/19/16 05:48 Intake and Output: 06/19/16 06/19/16 06:59 18:59 Intake Total 0 0 Output Total 200 Balance -200 0 - Medications Medications: Current Medications Chlordiazepoxide (Librium) 50 mg PO Q6H MICHELE PRN Reason: Protocol Last Admin: 06/19/16 09:16 Dose: 50 mg Clonidine HCl (Catapres) 0.1 mg PO Q6H PRN PRN Reason: Systolic Blood Pressure Last Admin: 06/18/16 07:55 Dose: 0.1 mg Heparin Sodium (Porcine) (Heparin) 5,000 units SC Q8 MICHELE PRN Reason: Protocol Hydromorphone HCl (Dilaudid) 2 mg IVP Q6H PRN PRN Reason: Pain, severe (8-10) Last Admin: 06/19/16 12:55 Dose: 2 mg Sodium Chloride (Sodium Chloride 0.9%) 100 mls @ 125 mls/hr IV .Q48M MICHELE Lorazepam (Ativan) 2 mg IVP Q3H PRN; Protocol PRN Reason: Agitation Last Admin: 06/19/16 14:43 Dose: 2 mg Metoprolol Tartrate (Lopressor) 25 mg PO Q12 MICHELE Last Admin: 06/19/16 13:44 Dose: 25 mg Ondansetron HCl (Zofran Inj) 4 mg IVP Q6H PRN PRN Reason: Nausea/Vomiting Pantoprazole Sodium (Protonix Inj) 40 mg IVP DAILY [facility] Last Admin: 06/19/16 09:16 Dose: 40 mg - Labs Labs: 06/19/16 06:30 06/19/16 06:30 Attending/Attestation - Attestation I have personally seen and examined this patient.: Yes I have fully participated in the care of the patient.: Yes I have reviewed all pertinent clinical information, including history, physical exam and plan: Yes Notes (Text): 06/19/16 16:34 Patient was seen and examined with medical sociologist .Agreed with resident assessment and plan. 35 yrs old male with Acute Pancreatitis due to alcohol abuse, CT showed severe Pancreatitis.Patient is found to have sinus tachycardia on telemetry and is also hypertensive.We will start patient on Metoprilol and will also get cardiology consult. Lipase level are coming down.Transaminase level are stable.We will monitor LFT. We will start patient on clear liquid, if unable to tolerate, (Pain get worse) will start patient on PPN. Management plan was discussed in detail with patient Education was provided.
[2016-06-19] MEDS ORDERED: Sodium Chloride 0.9% 1,000 ML IV ONE (10:05)
[2016-06-19] MEDS ORDERED: Sodium Chloride 0.9% 100 ML IV SCH (12:05)
--- NOTE | 2016-06-19 12:51 | CT ---
PROCEDURE: CT Abdomen with and without intravenous contrast HISTORY: acute pancreatitis pancreatic protocol COMPARISON: None. TECHNIQUE: Axial images of the abdomen from lung bases to iliac crest with and without intravenous contrast enhancement. Coronal and sagittal reformats generated. Oral contrast also administered. Arterial phase could not be obtained as the patient experienced vomiting after contrast injection. Delayed postcontrast images were obtained as well as precontrast Intravenous contrast Dose: 150 cc of Omni 350 Radiation dose: Total exam DLP = 1877 mGy-cm. This CT exam was performed using one or more of the following dose reduction techniques: Automated exposure control, adjustment of the mA and/or kV according to patient size, and/or use of iterative reconstruction technique. FINDINGS: LOWER THORAX: Small bilateral pleural effusions and bibasilar consolidation LIVER: Diffuse fatty infiltration of the liver GALLBLADDER AND BILE DUCTS: Unremarkable. PANCREAS: Severe inflammatory changes are seen in the pancreas consistent with acute pancreatitis. There is extensive inflammation of the adjacent mesenteric fat planes. There is a small amount of fluid adjacent to the para renal space bilaterally as well as a small amount of fluid in the pericolic gutters. There is no evidence of pseudocyst SPLEEN: Unremarkable. ADRENALS: Unremarkable. No mass. KIDNEYS AND URETERS: Unremarkable. No hydronephrosis. No solid mass. VASCULATURE: Unremarkable. No aortic aneurysm. BOWEL: Unremarkable. No obstruction. No gross mural thickening. APPENDIX: Normal appendix. PERITONEUM: Unremarkable. No free fluid. No free air. LYMPH NODES: Unremarkable. No enlarged lymph nodes. BLADDER: Unremarkable. REPRODUCTIVE: Unremarkable. BONES: No acute fracture. OTHER FINDINGS: None. IMPRESSION: Severe acute pancreatitis
--- NOTE | 2016-06-19 15:33 | CARD ---
APPROVED REPORT EKG Measurement Heart [id number] MD [id number] <Conclusion> Sinus tachycardia Inferior infarct, age undetermined Abnormal ECG
--- NOTE | 2016-06-19 15:39 | CARD ---
APPROVED REPORT EKG Measurement Heart [id number] ME [id number] <Conclusion> Sinus tachycardia Inferior infarct, age undetermined Abnormal ECG
--- NOTE | 2016-06-19 16:40 | PN ---
DATE: 06/19/2016 HISTORY OF PRESENT ILLNESS: Seen and examined at the bedside earlier today. He just returned from C T scan with pancreatic protocol, which is showing severe acute pancreatitis. The patient wants to ea t. He is still having abdominal pain, 8/10. No nausea, vomiting, or reports of bleeding. He is hav ing loose stool. No reports of any overt GI bleed. VITAL SIGNS: Temperature is 99.1, blood pressure 145/98, pulse is 135, respirations 22, 96 on room a ir. LABORATORY DATA: WBC is 13.8, H and H are 15.6 and 43.7, platelets of 133. Sodium 136, potassium 3. 8, BUN 21, creatinine is 1.1. His total bilirubin is 1.7, AST 81, ALT 57, alkaline phosphatase is 54 . Lipase is 2104. PHYSICAL EXAMINATION: HEENT: Sclerae are anicteric. NECK: Supple. CARDIAC: S1, S2. LUNGS: Sounds are clear. ABDOMEN: With bowel sounds, soft, mildly distended, with positive tenderness, mostly to mid abdomen. No rebound. Minimal guarding. EXTREMITIES: Positive pulses. No edema. NEUROLOGIC: Awake and alert. Did not notice any tremors. ASSESSMENT: A 35-year-old male with history of ethyl alcohol abuse and depression, with abdominal pa in, here with acute pancreatitis. Status post CT scan with pancreatic protocol. This is reporting s evere pancreatitis. He does have elevated LFTs, which could be secondary to alcohol intoxication. H e did have an ultrasound which is showing fatty liver. Likely, the patient is having pain, has a his tory of ethyl alcohol and alcohol withdrawal, transaminitis, fatty liver, history of depression, subs tance abuse, positive for opiates and cannabinoids. PLAN: May have sips of liquid. Continue aggressive IV hydration. He is on IV fluids of normal sali ne. Continue GI prophylaxis, Protonix IV daily, Zofran p.r.n. nausea, Ativan p.r.n., Dilaudid for pa in. He is also on Librium and Catapres. The patient is pending eval with cardiology for tachycardia . The patient was seen and case discussed with Dr. Fisher. Elizabeth WYATT cc: [id number] TT: 06/19/2016 16:39:41 Confirmation # [id number] Dictation # [id number] dn
[2016-06-19] MEDS: Sodium Chloride 0.9% 1,000 ML IV SCH (19:47)
--- NOTE | 2016-06-20 00:03 | PN ---
DATE: 06/19/2016 ADDENDUM This is an addendum to the GI progress report dictated by Elizabeth Arce NP. The patient still complains of some pain in the epigastric area on examination. ASSESSMENT/RECOMMENDATION: Acute pancreatitis. We reviewed the CTscan, continue the present plan. We will continue the antibiotics. We will start the patient on a clear liquid diet. We will continue to closely follow up the patient. Sherman Fisher MD cc: [id number] TT: 06/20/2016 00:02:07 Confirmation # [id number] Dictation # [id number] maylin [employer]ES
[2016-06-20] MEDS: HYDROmorphone 2 mg/ml ISec IVP PRN ×4 (06:42→23:29)
[2016-06-20 06:58] LABS: ADD MANUAL DIFF? NO
[2016-06-20 07:22] LABS: ALKALINE PHOSPHATASE 55 U/L (38-133); ALT/SGPT 48 U/L (7-56); AST/SGOT 60 U/L (15-59); BILIRUBIN,TOTAL 1.9 mg/dL (0.2-1.3); BLOOD UREA NITROGEN 6 mg/dL (7-21); CALCIUM 7.4 mg/dL (8.4-10.5); CARBON DIOXIDE 23 mmol/L (21-33); CHLORIDE 102 mmol/L (98-107); GFR AFRICAN-AMERICAN > 60; GLUCOSE,RANDOM 127 mg/dL (70-110); POTASSIUM 3.1 mmol/L (3.6-5.0); SODIUM 133 mmol/L (132-148); TOTAL PROTEIN 6.5 g/dL (5.8-8.3)
[2016-06-20 07:30] LABS: BASO # 0.01 K/mm3 (0.0-2.0); BASO % 0.1 % (0.0-3.0); EOS % 0.1 % (1.5-5.0); GRAN # 8.04 (1.4-6.5); GRAN % 76.7 % (50.0-68.0); HEMATOCRIT 35.5 % (42.0-52.0); LYMPH # 1.6 (1.2-3.4); LYMPH % 15.7 % (22.0-35.0); MEAN CELL VOLUME 95.7 fL (80.0-105.0); MEAN CORPUSCULAR HGB CONC 35.5 g/dl (31.0-37.0); MEAN PLATELET VOLUME 12.1 fl (7.0-11.0); MONO # 0.8 (0.1-0.6); MONO % 7.4 % (1.0-6.0); PLATELET COUNT 106 10^3/uL (120.0-450.0); RED CELL DISTRIBUTION WIDTH 12.7 % (11.5-14.5); WHITE BLOOD COUNT 10.5 10^3/ul (4.5-11.0)
[2016-06-20] MEDS ORDERED: Potassium Chloride 40 mEq/30 ml LIQ UD PO ONE (07:33)
[2016-06-20] MEDS: Sodium Chloride 0.9% 1,000 ML IV SCH ×2 (10:19→17:12)
--- NOTE | 2016-06-20 13:43 | PN ---
DATE: 06/20/2016 Seen and examined at the bedside this afternoon. Family at bedside. The patient denies any nausea, vomiting. Abdominal pain is improved compared to yesterday. He reports it is 7/10. He is not havin g any more loose bowel movement, but yesterday he reported noticing blood after BM. No reports of bl eeding today. Tolerating a diet. He was advanced to full liquid. Denies any chest pains, no shortn ess of breath. VITAL SIGNS: Temperature is 99.6, his blood pressure 147/94, pulse rate 129, respirations 21. LABORATORIES: WBC is 10.5, H and H is 12.6 and 35.5, platelets of 106. Chem: Sodium 133, K 3.1, BU N is 6, creatinine 0.7, total bilirubin is 1.9, AST 60, ALT 48, alkaline phosphatase is 55, lipase is better at 788. PHYSICAL EXAMINATION: HEENT: Sclera is anicteric. NECK: Supple. CARDIAC: S1, S2. LUNG SOUNDS: With decreased breath sounds. No rales or wheeze. ABDOMEN: With bowel sounds, softly distended with positive tenderness mid abdomen, but it is better. No rebound or guarding. EXTREMITIES: No edema. NEUROLOGIC: Awake and alert. No tremors. ASSESSMENT: A 35-year-old male with history of ethyl alcohol, depression with abdominal pain. Repor ts improvement today. He has acute pancreatitis. The patient was sent for a CT scan with pancreatic protocol, reporting severe pancreatitis. He is noted to have elevated LFTs, likely secondary to alc ohol intoxication, status post ultrasound reporting fatty liver. PLAN: Diet advanced to full liquid. Continue IV hydration. Continue deep venous thrombosis prophyl axis. He is on heparin. He is getting Librium q. 6 and Ativan p.r.n. Continue Protonix. Monitor H and H. The patient was seen and case discussed with Dr. Fisher. Elizabeth Yazmin EDMUNDO cc: [id number] TT: 06/20/2016 13:42:21 Confirmation # [id number] Dictation # [id number]
--- NOTE | 2016-06-20 13:59 | CP.PCM.PN ---
<Amanda Tate - Last Filed: 06/20/16 16:38> Subjective - Date & Time of Evaluation Date of Evaluation: 06/20/16 Time of Evaluation: 07:35 - Subjective Subjective: Pt seen and evaluated at bedside. Pt denies SOB, n/v/chest pain. Epigastric pain is reported. No urinary complaints and normal BM yesterday. Reports walking and afebrile overnight. Objective - Vital Signs/Intake and Output Vital Signs (last 24 hours): Temp Pulse Resp BP Pulse Ox 99.6 F 129 H 21 147/94 H 94 L 06/20/16 12:00 06/20/16 12:00 06/20/16 12:00 06/20/16 12:00 06/20/16 06:00 Intake and Output: 06/20/16 06/20/16 06:59 18:59 Intake Total 3795 Output Total 400 Balance 3395 - Medications Medications: Current Medications Chlordiazepoxide (Librium) 50 mg PO Q6H [facility]HELE PRN Reason: Protocol Last Admin: 06/20/16 13:20 Dose: 50 mg Clonidine HCl (Catapres) 0.1 mg PO Q6H PRN PRN Reason: Systolic Blood Pressure Last Admin: 06/18/16 07:55 Dose: 0.1 mg Hydromorphone HCl (Dilaudid) 2 mg IVP Q4H PRN PRN Reason: Pain, severe (8-10) Last Admin: 06/20/16 11:02 Dose: 2 mg Sodium Chloride (Sodium Chloride 0.9%) 1,000 mls @ 160 mls/hr IV .Q6H15M [facility] Last Admin: 06/20/16 10:19 Dose: 160 mls/hr Lorazepam (Ativan) 2 mg IVP Q3H PRN; Protocol PRN Reason: Agitation Last Admin: 06/20/16 03:59 Dose: 2 mg Metoprolol Tartrate (Lopressor) 25 mg PO Q12 [facility] Last Admin: 06/20/16 10:53 Dose: 25 mg Ondansetron HCl (Zofran Inj) 4 mg IVP Q6H PRN PRN Reason: Nausea/Vomiting Pantoprazole Sodium (Protonix Inj) 40 mg IVP DAILY [facility] Last Admin: 06/20/16 10:17 Dose: 40 mg - Labs Labs: 06/20/16 06:45 06/20/16 06:45 - Constitutional Appears: Non-toxic, No Acute Distress - Head Exam Head Exam: ATRAUMATIC, NORMOCEPHALIC - Eye Exam Eye Exam: EOMI, Normal appearance - Respiratory Exam Respiratory Exam: Clear to Ausculation Bilateral, NORMAL BREATHING PATTERN - Cardiovascular Exam Cardiovascular Exam: Tachycardia, +S1, +S2 - GI/Abdominal Exam GI & Abdominal Exam: Soft. absent: Tenderness - Exam External exam: absent: Ecchymosis, Erythema - Extremities Exam Extremities Exam: absent: Pedal Edema, Tenderness - Neurological Exam Neurological Exam: Alert, Awake - Skin Skin Exam: Intact, Normal Color Assessment and Plan - Assessment and Plan (Free Text) Plan: 35 year old male with past medical history of ETOH abuse and depression is admitted for acute pancreatitis. On blood work, lipase is 4524 initially and is on downtrend (788 today). LFTs were elevated and trending down. Wbc currently 10.5 and afebrile. Urine positive for opiates and cannabinoids. Acute pancreatitis * GI consulted, help appreciated * Afebrile w wbc of 10.5 * ABD US showed findings consistent with fatty infiltration of liver [see full report] * full liq diet, advancing as tolerated * NS @ 160 cc * Zofran * Protonix * pain management with dilaudid 2 q4 prn ETOH withdrawal * CIWA protocol * Librium 50 mg PO Q8H * Ativan 2q3 prn for agitation * on tele monitor * Seizure precaution * Fall precaution HTN * pain induced vs withdrawals * Clonidine .1 mg Q6H * Given Lopressor IV * metoprolol NSR Tachycardia * metoprolol * NS160 cc/hr * cardiology consult, help appreciated Transaminitis * ABD US showed findings consistent with fatty infiltration however other infiltrative hepatocellular disease not completely excluded [see full report] * hep panel ordered * Lipid panel: Triglycerides 404, Cholesterol 285, HDL 173, HDL 49 * Will continue to monitor Depression: home medication is sertraline 100 mg PO QD, will restart with up taper tomorrow Substance abuse * Urine tox positive for opiates and cannabinoids * alcohol level elevated * advised on cessation Prophylaxis * SCDS, heparin Case discussed with attending <Enrrique NIETO,Jazzy - Last Filed: 06/20/16 17:11> Objective - Vital Signs/Intake and Output Vital Signs (last 24 hours): Temp Pulse Resp BP Pulse Ox 99.6 F 119 H 21 147/94 H 94 L 06/20/16 12:00 06/20/16 14:00 06/20/16 12:00 06/20/16 12:00 06/20/16 06:00 Intake and Output: 06/20/16 06/20/16 06:59 18:59 Intake Total 3795 Output Total 400 Balance 3395 - Medications Medications: Current Medications Chlordiazepoxide (Librium) 50 mg PO Q8H [facility] PRN Reason: Protocol Last Admin: 06/20/16 14:55 Dose: Not Given Clonidine HCl (Catapres) 0.1 mg PO Q6H PRN PRN Reason: Systolic Blood Pressure Last Admin: 06/18/16 07:55 Dose: 0.1 mg Hydromorphone HCl (Dilaudid) 2 mg IVP Q4H PRN PRN Reason: Pain, severe (8-10) Last Admin: 06/20/16 11:02 Dose: 2 mg Sodium Chloride (Sodium Chloride 0.9%) 1,000 mls @ 160 mls/hr IV .Q6H15M [facility] Last Admin: 06/20/16 10:19 Dose: 160 mls/hr Lorazepam (Ativan) 2 mg IVP Q3H PRN; Protocol PRN Reason: Agitation Last Admin: 06/20/16 03:59 Dose: 2 mg Metoprolol Tartrate (Lopressor) 25 mg PO Q12 [facility] Last Admin: 06/20/16 10:53 Dose: 25 mg Ondansetron HCl (Zofran Inj) 4 mg IVP Q6H PRN PRN Reason: Nausea/Vomiting Pantoprazole Sodium (Protonix Inj) 40 mg IVP DAILY [facility] Last Admin: 06/20/16 10:17 Dose: 40 mg - Labs Labs: 06/20/16 06:45 06/20/16 06:45 Attending/Attestation - Attestation I have personally seen and examined this patient.: Yes I have fully participated in the care of the patient.: Yes I have reviewed all pertinent clinical information, including history, physical exam and plan: Yes Notes (Text): 06/20/16 17:08 Patient was seen and examined with biomedical equipment technician .Agreed with resident assessment and plan. 35 yrs old male with Acute Pancreatitis due to alcohol abuse, CT showed severe Pancreatitis.Patient tachycardia is multifactorial due to pain and alcohol withdrawal.His tachycardia is improving.He is on Metoprolol.Echo is pending.Cardiology evaluation is pending/Alcohol withdrawal are also improving.He is tolerating clear liquid diet, we will advance to full liquid diet. The issue of chronic alcohol abuse was discussed in detail with patient. Management plan was discussed in detail with patient Education was provided.
--- NOTE | 2016-06-20 14:04 | CON ---
DATE: 06/20/2016 REASON FOR CONSULTATION: Sinus tachycardia. HISTORY OF PRESENT ILLNESS: The patient is a 35-year-old male who is originally from [place] who has a history of pancreatitis. He is an ETOH abuser. The first bout was a few months ago in an other hospital. He presented because of abdominal pain, nausea and vomiting after an alcoholic binge and is being treated for pancreatitis. The patient was noted to be tachycardic on the monitor and w hen the case was discussed with the medical team on the floor yesterday, I elected to increase the pa tient's IV fluid. The patient denies any prior cardiac history. There is no reported ventricular ar rhythmia and the patient denies any chest pain. The patient is still n.p.o. until now. MEDICATIONS: Ativan 2 mg intravenously q. 3 hours p.r.n., clonidine 0.1 mg q. 6 hours, Dilaudid 2 mg intravenously q. 4 hours p.r.n., subcutaneous heparin 5000 units q. 8 hours, Librium 50 mg q. 6 hour s p.r.n., Lopressor 25 mg twice a day, normal saline at 160 mL an hour, Zofran 4 mg intravenously q. 6 hours p.r.n. REVIEW OF SYSTEMS: No hematemesis or melena. No fever or chills. PHYSICAL EXAMINATION: GENERAL: The patient is a young middle-aged male who does not appear to be in any distress. VITAL SIGNS: Blood pressure 147/94, heart rate 123, temperature 99.6, respirations 21. HEENT: Normocephalic. NECK: No JVD. CHEST: Clear. HEART: S1, S2 regular. ABDOMEN: Significant epigastric tenderness. EXTREMITIES: No edema. LABORATORY DATA: Hemoglobin and hematocrit 12.6 and 35.5, white count 10.3, platelet count is declin ing at 106. Initial platelet count was 258. Urine drug screen is positive for cannabinoids and opia carmen. Alcohol on admission was 191,000. Today's potassium is 3.1. Lipase on admission was 3556. To day is 788. EKG revealed sinus tachycardia at rate of 136. Inferior Q-waves were noted. ASSESSMENT: 1. Acute pancreatitis. 2. Sinus tachycardia is a physiologic response to either pain or dehydration or both. The inferior Q-waves in this clinical scenario do not signify a prior myocardial infarction. 3. Hypokalemia. 4. Thrombocytopenia. RECOMMENDATIONS: Discontinue subcutaneous heparin for now. Optimize IV hydration and pain managemen t. Continue Lopressor at 25 mg twice a day. I will review the echocardiographic study performed todomenic rodriguez. Leonid Roberts MD cc: [id number] TT: 06/20/2016 14:03:45 Confirmation # [id number] Dictation # [id number] tn
--- NOTE | 2016-06-20 19:52 | CARD ---
APPROVED REPORT EXAM: Two-dimensional and M-mode echocardiogram with Doppler and color Doppler. INDICATION LVFX 2D DIMENSIONS Left Atrium (2D)4.4 (1.6-4.0cm)IVSd1.0 (0.7-1.1cm) LVDd4.7 (3.9-5.9cm)PWd1.0 (0.7-1.1cm) LVDs3.2 (2.5-4.0cm)FS (%) 31.5 % LVEF (%)59.4 (>50%) M-Mode DIMENSIONS Aortic Root3.30 (2.2-3.7cm)Aortic Cusp Exc.2.20 (1.5-2.0cm) Aortic Valve AoV Peak Lvaxgotw601.0cm/Che Peak GR.8mmHg Mitral Valve MV E Efsabzlp69.6cm/sMV A Youwibme18.9cm/sE/A ratio0.8 TDI Lateral E' Peak V11.70cm/sMedial E' Peak V8.48cm/sE/Lateral E'5.9 E/Medial E'8.1 Pulmonary Valve PV Peak Xnjripex05.4cm/sPV Peak Grad.3mmHg Tricuspid Valve TR Peak Znmebcdx433kp/sRAP WJFQYXNH02dlAeHM Peak Gr.27mmHg [id number] LEFT VENTRICLE The left ventricle is normal size. There is normal left ventricular wall thickness. The left ventricular function is normal. The left ventricular ejection fraction is within the normal range. There is normal LV segmental wall motion. Transmitral Doppler flow pattern is Grade I-abnormal relaxation pattern. RIGHT VENTRICLE The right ventricle is normal size. There is normal right ventricular wall thickness. The right ventricular systolic function is normal. ATRIA The left atrium is borderline dilated. The right atrium size is normal. AORTIC VALVE The aortic valve is normal in structure. No aortic regurgitation is present. MITRAL VALVE The mitral valve is normal in structure. TRICUSPID VALVE There is mild pulmonary hypertension. GREAT VESSELS The aortic root is normal in size. The IVC is normal in size and collapses >50% with inspiration. PERICARDIAL EFFUSION There is no pericardial effusion. <Conclusion> The left ventricle is normal size. There is normal left ventricular wall thickness. The left ventricular function is normal. The left ventricular ejection fraction is within the normal range. There is normal LV segmental wall motion. Transmitral Doppler flow pattern is Grade I-abnormal relaxation pattern.
[2016-06-20] MEDS: Potassium Chloride 20 mEq ER Tab PO SCH ×2 (20:13→23:30)
[2016-06-21] MEDS: HYDROmorphone 2 mg/ml ISec IVP PRN ×3 (03:59→19:01)
[2016-06-21 07:59] LABS: ADD MANUAL DIFF? NO
[2016-06-21 08:01] LABS: BASO # 0.01 K/mm3 (0.0-2.0); BASO % 0.1 % (0.0-3.0); EOS % 0.3 % (1.5-5.0); GRAN # 7.83 (1.4-6.5); HEMATOCRIT 32.8 % (42.0-52.0); LYMPH # 1.8 (1.2-3.4); MEAN CELL VOLUME 96.2 fL (80.0-105.0); MEAN CORPUSCULAR HEMOGLOBIN 33.7 pg (25.0-35.0); MEAN CORPUSCULAR HGB CONC 35.1 g/dl (31.0-37.0); MEAN PLATELET VOLUME 10.7 fl (7.0-11.0); MONO # 1.4 (0.1-0.6); MONO % 12.6 % (1.0-6.0); PLATELET COUNT 118 10^3/uL (120.0-450.0); RED CELL DISTRIBUTION WIDTH 12.8 % (11.5-14.5)
[2016-06-21 08:13] LABS: ALB/GLOB RATIO 0.9 (1.1-1.8); ALKALINE PHOSPHATASE 54 U/L (38-133); ALT/SGPT 44 U/L (7-56); AST/SGOT 44 U/L (15-59); BILIRUBIN,TOTAL 1.4 mg/dL (0.2-1.3); BLOOD UREA NITROGEN 4 mg/dL (7-21); CALCIUM 7.5 mg/dL (8.4-10.5); CARBON DIOXIDE 26 mmol/L (21-33); CHLORIDE 101 mmol/L (95-110); GFR AFRICAN-AMERICAN > 60; GLUCOSE,RANDOM 129 mg/dL (70-110); POTASSIUM 3.9 mmol/L (3.6-5.0); SODIUM 134 mmol/L (132-148); TOTAL PROTEIN 6.4 g/dL (5.8-8.3)
[2016-06-21] MEDS: Naproxen 550 mg Tab PO PRN (10:01)
[2016-06-21] MEDS: Sodium Chloride 0.9% 1,000 ML IV SCH ×3 (10:03→22:07)
--- NOTE | 2016-06-21 11:36 | CP.PCM.PN ---
<Amanda Tate - Last Filed: 06/21/16 13:58> Subjective - Date & Time of Evaluation Date of Evaluation: 06/21/16 Time of Evaluation: 07:45 - Subjective Subjective: Pt seen and evaluated at bedside. Pt denies SOB, n/v, urinary symptoms, and BM changes. Tolerating diet. Febrile episode yesterday around 1800 with 100.6. Resolved. Objective - Vital Signs/Intake and Output Vital Signs (last 24 hours): Temp Pulse Resp BP Pulse Ox 98.7 F 123 H 22 142/95 H 96 06/21/16 06:00 06/21/16 10:05 06/21/16 06:00 06/21/16 10:05 06/21/16 06:00 Intake and Output: 06/21/16 06/21/16 06:59 18:59 Intake Total 4440 Output Total 900 Balance 3540 - Medications Medications: Current Medications Chlordiazepoxide (Librium) 50 mg PO Q12 [facility] PRN Reason: Protocol Last Admin: 06/21/16 10:02 Dose: 50 mg Clonidine HCl (Catapres) 0.1 mg PO Q6H PRN PRN Reason: Systolic Blood Pressure Last Admin: 06/21/16 10:05 Dose: 0.1 mg Hydromorphone HCl (Dilaudid) 2 mg IVP Q4H PRN PRN Reason: Pain, severe (8-10) Last Admin: 06/21/16 10:06 Dose: 2 mg Sodium Chloride (Sodium Chloride 0.9%) 1,000 mls @ 160 mls/hr IV .Q6H15M [facility] Last Admin: 06/21/16 10:03 Dose: 160 mls/hr Lorazepam (Ativan) 1 mg IVP Q3H PRN; Protocol PRN Reason: Agitation Metoprolol Tartrate (Lopressor) 50 mg PO Q12 [facility] Naproxen (Anaprox Ds) 550 mg PO BID PRN PRN Reason: Fever >100.4 F Last Admin: 06/21/16 10:01 Dose: 550 mg Ondansetron HCl (Zofran Inj) 4 mg IVP Q6H PRN PRN Reason: Nausea/Vomiting Pantoprazole Sodium (Protonix Inj) 40 mg IVP DAILY [facility] Last Admin: 06/21/16 10:02 Dose: 40 mg - Labs Labs: 06/21/16 07:20 06/21/16 07:20 - Constitutional Appears: Non-toxic, No Acute Distress - Head Exam Head Exam: ATRAUMATIC, NORMOCEPHALIC - Eye Exam Eye Exam: EOMI, Normal appearance - ENT Exam ENT Exam: Mucous Membranes Moist, Normal Exam - Respiratory Exam Respiratory Exam: Clear to Ausculation Bilateral, NORMAL BREATHING PATTERN - Cardiovascular Exam Cardiovascular Exam: Tachycardia, +S1, +S2 - GI/Abdominal Exam GI & Abdominal Exam: Soft. absent: Tenderness - Exam External exam: absent: Ecchymosis, Erythema - Extremities Exam Extremities Exam: absent: Pedal Edema, Tenderness - Neurological Exam Neurological Exam: Alert, Awake - Skin Skin Exam: Intact, Normal Color Assessment and Plan - Assessment and Plan (Free Text) Plan: 35 year old male with past medical history of ETOH abuse and depression is admitted for acute pancreatitis. On blood work, lipase is 4524 initially and is on downtrend (788). LFTs were elevated and trending down. Wbc currently 11. Urine positive for opiates and cannabinoids. Acute pancreatitis * GI consulted, help appreciated * wbc of 11 * ABD US showed findings consistent with fatty infiltration of liver [see full report] * full liq diet * NS @ 160 cc * Zofran * Protonix * pain management with dilaudid 2 q6 prn ETOH withdrawal * CIWA protocol * Librium 50 mg PO Q12H * Ativan 1q3 prn for agitation * on tele monitor * Seizure precaution * Fall precaution HTN * pain induced vs withdrawals * Clonidine .1 mg Q6H * Given Lopressor IV * metoprolol increased to 50 qd today NSR Tachycardia * metoprolol * NS 160 cc/hr * cardiology consult, help appreciated * ECHO report shows normal EF with grade I abnormal relaxation pattern. Transaminitis * ABD US showed findings consistent with fatty infiltration however other infiltrative hepatocellular disease not completely excluded [see full report] * hep panel ordered * Lipid panel: Triglycerides 404, Cholesterol 285, HDL 173, HDL 49 * Will continue to monitor Depression: home medication is sertraline 100 mg PO QD, started on 50 mg PO QD, with taper up of 25mg PO once a week Substance abuse * Urine tox positive for opiates and cannabinoids * alcohol level elevated * advised on cessation Prophylaxis * SCDS, heparin Case discussed with attending <Enrrique NIETOJazzy - Last Filed: 06/24/16 12:06> Objective - Vital Signs/Intake and Output Vital Signs (last 24 hours): Temp Pulse Resp BP Pulse Ox 98.8 F 109 H 22 130/91 H 95 06/24/16 11:41 06/24/16 11:41 06/24/16 11:41 06/24/16 11:41 06/24/16 05:42 Intake and Output: 06/24/16 06/24/16 06:59 18:59 Intake Total 240 Balance 240 - Medications Medications: Current Medications Clonidine HCl (Catapres) 0.1 mg PO Q6H PRN PRN Reason: Systolic Blood Pressure Last Admin: 06/23/16 16:26 Dose: 0.1 mg Docusate Sodium (Colace) 100 mg PO TID [facility] Last Admin: 06/24/16 10:53 Dose: 100 mg Gabapentin (Neurontin) 300 mg PO TID [facility] PRN Reason: Protocol Last Admin: 06/24/16 10:52 Dose: 300 mg Hydromorphone HCl (Dilaudid) 1 mg IVP Q6H PRN PRN Reason: Pain, severe (8-10) Last Admin: 06/23/16 21:28 Dose: 1 mg Sodium Chloride (Sodium Chloride 0.9%) 1,000 mls @ 160 mls/hr IV .Q6H15M [facility] Last Admin: 06/23/16 05:16 Dose: 160 mls/hr Ceftriaxone Sodium (Rocephin 1 Gram Ivpb) 1 gm in 100 mls @ 100 mls/hr IVPB DAILY [facility] PRN Reason: Protocol Last Admin: 06/24/16 10:42 Dose: 100 mls/hr Metoprolol Tartrate (Lopressor) 50 mg PO Q12 [facility] Last Admin: 06/24/16 10:42 Dose: 50 mg Naproxen (Anaprox Ds) 550 mg PO BID PRN PRN Reason: Fever >100.4 F Last Admin: 06/23/16 16:26 Dose: 550 mg Ondansetron HCl (Zofran Inj) 4 mg IVP Q6H PRN PRN Reason: Nausea/Vomiting Last Admin: 06/23/16 21:28 Dose: 4 mg Oxycodone/Acetaminophen (Percocet 5/325 Mg Tab) 1 tab PO Q6H PRN PRN Reason: Pain, moderate (4-7) Stop: 06/24/16 13:41 Last Admin: 06/22/16 06:38 Dose: 1 tab Pantoprazole Sodium (Protonix Inj) 40 mg IVP DAILY [facility] Last Admin: 06/24/16 10:59 Dose: 40 mg Polyethylene Glycol (Miralax) 17 gm PO DAILY [facility] Last Admin: 06/24/16 10:42 Dose: 17 gm Sertraline HCl (Zoloft) 50 mg PO DAILY [facility] Last Admin: 06/24/16 10:41 Dose: 50 mg - Labs Labs: 06/24/16 07:41 06/24/16 07:41 PT 11.5 Seconds (9.9-11.8) 06/22/16 07:30 INR 1.06 (0.93-1.08) 06/22/16 07:30 APTT 34.5 Seconds (23.7-30.8) H 06/22/16 07:30 Attending/Attestation - Attestation I have personally seen and examined this patient.: Yes I have fully participated in the care of the patient.: Yes I have reviewed all pertinent clinical information, including history, physical exam and plan: Yes Notes (Text): 06/24/16 12:02 Patient was seen and examined with medical assistant cardiology .Agreed with resident assessment and plan. 35 year old male with past medical history of alcohol abuse and depression was admitted for acute pancreatitis, abdominal pain is slowly improving.Patient is on clear liquid, still have sinus tachycardia and HTN, on metoprolol.There is no sign of alcohol withdrawal.Sinus tachycardia is multifactorial due to pain and dehydration. Management plan was discussed in detail with patient Education was provided.
--- NOTE | 2016-06-21 18:10 | PN ---
DATE: 06/21/2016 Seen and examined at the bedside earlier today. The patient is more awake, alert, tolerating the full liquid diet. No nausea, vomiting. Abdominal pain is improving. The patient did have a loose stool this morning, but the second stool this afternoon was less loose. Does report black stool. No bright red blood. H/O NSAID use. VITAL SIGNS: Temperature is 97.9, blood pressure 127/73, pulse is 106, respirations 20. LABORATORIES: WBC is 11.0, H and H is 11.5 and 32.8, platelets is 118. Sodium 138, K is 3.9, BUN is 4, creatinine is 0.7, total bilirubin is 1.4, AST 44, ALT 44, alkaline phosphatase 54. This is improving. PHYSICAL EXAMINATION: HEENT: Sclera is anicteric. NECK: Supple. CARDIAC: S1, S2. LUNG SOUNDS: With decreased breath sounds, but good air entry, no rales or wheeze. ABDOMEN: With bowel sounds, soft, positive for tenderness. No rebound, guarding, or organomegaly. ASSESSMENT: A 35-year-old male with history of ethyl alcohol abuse and depression, came with acute pancreatitis with elevated liver enzymes, which is trending down. The patient did have ultrasound showing fatty infiltration of the liver, is also having ethyl alcohol withdrawal, history of hypertension. PLAN: On full liquid diet. Continue gastrointestinal prophylaxis. He is on Protonix 40 daily. The patient complaining of dark stools. May benefit from endoscopic EGD. We will continue IV fluids. The patient is on Ativan and Librium. Monitor H and H and monitor LFTs. The patient seen and case discussed with Dr. Fisher. Elizabeth WYATT cc: [id number] TT: 06/21/2016 18:10:25 Confirmation # [id number] Dictation # [id number] en MTDD
[2016-06-21] MEDS: Oxycodone/Acetaminophen 5/325 mg Tab PO PRN (22:44)
[2016-06-22] MEDS: Sodium Chloride 0.9% 1,000 ML IV SCH ×3 (04:29→16:50)
[2016-06-22] MEDS: HYDROmorphone 2 mg/ml ISec IVP PRN ×3 (04:36→23:18)
[2016-06-22] MEDS: Oxycodone/Acetaminophen 5/325 mg Tab PO PRN (06:38)
[2016-06-22 07:56] LABS: ADD MANUAL DIFF? NO
[2016-06-22 08:04] LABS: BASO # 0.02 K/mm3 (0.0-2.0); BASO % 0.2 % (0.0-3.0); EOS # 0.1 (0.0-0.7); EOS % 1.1 % (1.5-5.0); GRAN # 7.24 (1.4-6.5); GRAN % 70.1 % (50.0-68.0); HEMATOCRIT 31.5 % (42.0-52.0); LYMPH # 1.5 (1.2-3.4); LYMPH % 14.4 % (22.0-35.0); MEAN CORPUSCULAR HEMOGLOBIN 33.5 pg (25.0-35.0); MEAN CORPUSCULAR HGB CONC 34.9 g/dl (31.0-37.0); MONO # 1.5 (0.1-0.6); MONO % 14.2 % (1.0-6.0); PLATELET COUNT 144 10^3/uL (120.0-450.0); RED CELL DISTRIBUTION WIDTH 12.8 % (11.5-14.5); WHITE BLOOD COUNT 10.3 10^3/ul (4.5-11.0)
[2016-06-22 08:11] LABS: INR 1.06 (0.93-1.08); PARTIAL THROMBOPLASTIN TIME 34.5 Seconds (23.7-30.8)
[2016-06-22 08:15] LABS: ALB/GLOB RATIO 0.9 (1.1-1.8); ALKALINE PHOSPHATASE 74 U/L (38-133); ALT/SGPT 50 U/L (7-56); AST/SGOT 52 U/L (15-59); BILIRUBIN,TOTAL 1.2 mg/dL (0.2-1.3); BLOOD UREA NITROGEN 4 mg/dL (7-21); CARBON DIOXIDE 26 mmol/L (21-33); CHLORIDE 103 mmol/L (98-107); GFR AFRICAN-AMERICAN > 60; GLUCOSE,RANDOM 99 mg/dL (70-110); POTASSIUM 3.4 mmol/L (3.6-5.0); SODIUM 136 mmol/L (132-148); TOTAL PROTEIN 6.4 g/dL (5.8-8.3)
[2016-06-22] MEDS ORDERED: Potassium Chloride 20 mEq ER Tab PO ONE (09:16)
--- NOTE | 2016-06-22 11:39 | PN ---
DATE: 06/22/2016 The patient's abdominal pain has improved. She denies chest pain. Sinus tachycardia has improved, b ut still there on the monitor. The latest heart rate is 120. PHYSICAL EXAMINATION: VITAL SIGNS: Blood pressure 147/85, heart rate 117, temperature 98.6. HEENT: Normocephalic. NECK: No JVD. CHEST: Clear. HEART: S1, S2 regular. EXTREMITIES: No edema. LABORATORIES: The most recent potassium from yesterday 3.4. ASSESSMENT: 1. Acute pancreatitis. 2. Sinus tachycardia. RECOMMENDATIONS: I did review the echocardiograph study, which revealed normal left ventricular size , wall thickness, and ejection fraction. Continue current clonidine 0.1 mg q. 6 hours, IV hydration with normal saline at 160 mL per hour and optimize pain management. Leonid Roberts MD cc: [id number] TT: 06/22/2016 11:39:01 Confirmation # [id number] Dictation # [id number] en
--- NOTE | 2016-06-22 12:52 | CP.PCM.PN ---
<Amanda Tate - Last Filed: 06/22/16 14:24> Subjective - Date & Time of Evaluation Date of Evaluation: 06/22/16 Time of Evaluation: 07:35 - Subjective Subjective: Pt seen and evaluated at bedside. Pt denies SOB, N/V. Epigastric abdominal pain is less than yesterday. Pt is tolerating diet and afebrile overnight. Objective - Vital Signs/Intake and Output Vital Signs (last 24 hours): Temp Pulse Resp BP Pulse Ox 98.7 F 111 H 20 122/91 H 98 06/22/16 12:00 06/22/16 12:00 06/22/16 12:00 06/22/16 12:00 06/22/16 05:30 Intake and Output: 06/22/16 06/22/16 06:59 18:59 Intake Total 4520 Output Total 1700 Balance 2820 - Medications Medications: Current Medications Chlordiazepoxide (Librium) 25 mg PO Q12 MICHELE PRN Reason: Protocol Clonidine HCl (Catapres) 0.1 mg PO Q6H PRN PRN Reason: Systolic Blood Pressure Last Admin: 06/21/16 10:05 Dose: 0.1 mg Gabapentin (Neurontin) 300 mg PO TID MICHELE PRN Reason: Protocol Hydromorphone HCl (Dilaudid) 2 mg IVP Q6H PRN PRN Reason: Pain, severe (8-10) Last Admin: 06/22/16 04:36 Dose: 2 mg Sodium Chloride (Sodium Chloride 0.9%) 1,000 mls @ 160 mls/hr IV .Q6H15M [facility] Last Admin: 06/22/16 09:39 Dose: 160 mls/hr Lorazepam (Ativan) 1 mg IVP Q3H PRN; Protocol PRN Reason: Agitation Metoprolol Tartrate (Lopressor) 50 mg PO Q12 [facility] Last Admin: 06/22/16 09:38 Dose: 50 mg Naproxen (Anaprox Ds) 550 mg PO BID PRN PRN Reason: Fever >100.4 F Last Admin: 06/21/16 10:01 Dose: 550 mg Ondansetron HCl (Zofran Inj) 4 mg IVP Q6H PRN PRN Reason: Nausea/Vomiting Oxycodone/Acetaminophen (Percocet 5/325 Mg Tab) 1 tab PO Q6H PRN PRN Reason: Pain, moderate (4-7) Stop: 06/24/16 13:41 Last Admin: 06/22/16 06:38 Dose: 1 tab Pantoprazole Sodium (Protonix Inj) 40 mg IVP DAILY [facility] Last Admin: 06/22/16 09:37 Dose: 40 mg Sertraline HCl (Zoloft) 50 mg PO DAILY [facility] Last Admin: 06/22/16 09:38 Dose: 50 mg - Labs Labs: 06/22/16 07:30 06/22/16 07:30 PT 11.5 Seconds (9.9-11.8) 06/22/16 07:30 INR 1.06 (0.93-1.08) 06/22/16 07:30 APTT 34.5 Seconds (23.7-30.8) H 06/22/16 07:30 - Constitutional Appears: Non-toxic, No Acute Distress - Head Exam Head Exam: ATRAUMATIC, NORMOCEPHALIC - Eye Exam Eye Exam: EOMI, Normal appearance - ENT Exam ENT Exam: Mucous Membranes Moist, Normal Exam - Respiratory Exam Respiratory Exam: Clear to Ausculation Bilateral, NORMAL BREATHING PATTERN - Cardiovascular Exam Cardiovascular Exam: Tachycardia, +S1, +S2 - GI/Abdominal Exam GI & Abdominal Exam: Soft, Tenderness Additional comments: tenderness of epigastric area - Exam External exam: absent: Ecchymosis, Erythema - Extremities Exam Extremities Exam: absent: Pedal Edema, Tenderness - Neurological Exam Neurological Exam: Alert, Awake - Skin Skin Exam: Intact, Normal Color Assessment and Plan - Assessment and Plan (Free Text) Plan: 35 year old male with past medical history of ETOH abuse and depression is admitted for acute pancreatitis. On blood work, lipase is 4524 initially and is on downtrend (788). LFTs were elevated and trending down. Wbc currently 11. Urine positive for opiates and cannabinoids. Acute pancreatitis * GI consulted, help appreciated * wbc of 10.3 * ABD US showed findings consistent with fatty infiltration of liver [see full report] * soft diet * NS @ 160 cc * Zofran * Protonix * pain management with dilaudid and oxycodone PO ETOH withdrawal * CIWA protocol * Librium 25 mg PO Q12H * Ativan 1q3 prn for agitation * on tele monitor * Seizure precaution * Fall precaution HTN * pain induced vs withdrawals * Clonidine .1 mg Q6H * Given Lopressor IV * metoprolol 50mg qd NSR Tachycardia * metoprolol * NS 160 cc/hr * cardiology consult, help appreciated * ECHO report shows normal EF with grade I abnormal relaxation pattern. Transaminitis * ABD US showed findings consistent with fatty infiltration however other infiltrative hepatocellular disease not completely excluded [see full report] * hep panel ordered * Lipid panel: Triglycerides 404, Cholesterol 285, HDL 173, HDL 49 * Will continue to monitor Depression: home medication is sertraline 100 mg PO QD, 50 mg PO QD ordered, with taper up of 25mg PO once a week Electrolytes: hypokalemia and hypocalcemia, both repleted today Substance abuse * Urine tox positive for opiates and cannabinoids * alcohol level elevated * advised on cessation Prophylaxis * SCDS, heparin Case discussed with attending <Jazzy Osuna MD - Last Filed: 06/24/16 12:09> Objective - Vital Signs/Intake and Output Vital Signs (last 24 hours): Temp Pulse Resp BP Pulse Ox 98.8 F 109 H 22 130/91 H 95 06/24/16 11:41 06/24/16 11:41 06/24/16 11:41 06/24/16 11:41 06/24/16 05:42 Intake and Output: 06/24/16 06/24/16 06:59 18:59 Intake Total 240 Balance 240 - Medications Medications: Current Medications Clonidine HCl (Catapres) 0.1 mg PO Q6H PRN PRN Reason: Systolic Blood Pressure Last Admin: 06/23/16 16:26 Dose: 0.1 mg Docusate Sodium (Colace) 100 mg PO TID [facility] Last Admin: 06/24/16 10:53 Dose: 100 mg Gabapentin (Neurontin) 300 mg PO TID MICHELE PRN Reason: Protocol Last Admin: 06/24/16 10:52 Dose: 300 mg Hydromorphone HCl (Dilaudid) 1 mg IVP Q6H PRN PRN Reason: Pain, severe (8-10) Last Admin: 06/23/16 21:28 Dose: 1 mg Sodium Chloride (Sodium Chloride 0.9%) 1,000 mls @ 160 mls/hr IV .Q6H15M [facility] Last Admin: 06/23/16 05:16 Dose: 160 mls/hr Ceftriaxone Sodium (Rocephin 1 Gram Ivpb) 1 gm in 100 mls @ 100 mls/hr IVPB DAILY [facility] PRN Reason: Protocol Last Admin: 06/24/16 10:42 Dose: 100 mls/hr Metoprolol Tartrate (Lopressor) 50 mg PO Q12 [facility] Last Admin: 06/24/16 10:42 Dose: 50 mg Naproxen (Anaprox Ds) 550 mg PO BID PRN PRN Reason: Fever >100.4 F Last Admin: 06/23/16 16:26 Dose: 550 mg Ondansetron HCl (Zofran Inj) 4 mg IVP Q6H PRN PRN Reason: Nausea/Vomiting Last Admin: 06/23/16 21:28 Dose: 4 mg Oxycodone/Acetaminophen (Percocet 5/325 Mg Tab) 1 tab PO Q6H PRN PRN Reason: Pain, moderate (4-7) Stop: 06/24/16 13:41 Last Admin: 06/22/16 06:38 Dose: 1 tab Pantoprazole Sodium (Protonix Inj) 40 mg IVP DAILY [facility] Last Admin: 06/24/16 10:59 Dose: 40 mg Polyethylene Glycol (Miralax) 17 gm PO DAILY [facility] Last Admin: 06/24/16 10:42 Dose: 17 gm Sertraline HCl (Zoloft) 50 mg PO DAILY [facility] Last Admin: 06/24/16 10:41 Dose: 50 mg - Labs Labs: 06/24/16 07:41 06/24/16 07:41 PT 11.5 Seconds (9.9-11.8) 06/22/16 07:30 INR 1.06 (0.93-1.08) 06/22/16 07:30 APTT 34.5 Seconds (23.7-30.8) H 06/22/16 07:30 Attending/Attestation - Attestation I have personally seen and examined this patient.: Yes I have fully participated in the care of the patient.: Yes I have reviewed all pertinent clinical information, including history, physical exam and plan: Yes Notes (Text): 06/24/16 12:07 Patient was seen and examined with pesticide use medical coordinator .Agreed with resident assessment and plan. 35 year old male with past medical history of alcohol abuse and depression was admitted for acute pancreatitis, abdominal pain is slowly improving.Patient is tolerating liquid diet, still have sinus tachycardia and HTN, but improving on metoprolol.There is no sign of alcohol withdrawal. Abdominal pain is better , Sinus tachycardia is multifactorial due to pain and dehydration.Patient gave history of questionable melena, for EGD in the morning by GI Management plan was discussed in detail with patient Education was provided.
--- NOTE | 2016-06-22 15:55 | PN ---
DATE: 06/22/2016 Seen and examined at the bedside earlier today. He seemed a bit drowsy but is arousable. He reports he still has abdominal pain, but is improved. No reports of any shortness of breath or chest pain. No nausea or vomiting. He tolerated his breakfast this morning. He has not had any episodes of rajesh rrhea. No bowel movement yet today but he did report he had bowel movement yesterday but it appeared black. No bright red blood. VITAL SIGNS: Temperature is 97.6, his blood pressure is 147/85, pulse rate is 117, respirations 20. LABORATORY DATA: WBC is 10.3, hemoglobin 11.0, platelets are 144. PT is 11.5. INR is 1.06, PTT 34. 5. Sodium 136, K 3.4, BUN is 4, creatinine 0.6. LFTs are within normal limits. His lipase is 74. PHYSICAL EXAMINATION: HEENT: Sclera is anicteric. NECK: Supple. CARDIAC: S1, S2. LUNGS: Clear. ABDOMEN: With bowel sounds, soft. He still has tenderness, no rebound or guarding, mostly in the mi d abdomen. EXTREMITIES: No edema. NEUROLOGIC: He seems drowsy, but easily arousable, but oriented. No tremors noted. ASSESSMENT: A 35-year-old male with ethyl alcohol abuse, depression, here with acute pancreatitis an d elevated liver enzymes which is improving. Ultrasound shows fatty infiltration. The patient with complaints of melena, rule out any peptic ulcer disease. He does have history of nonsteroidal anti-i nflammatory drug use, history of hypertension. PLAN: Continue PPI. Discussed with patient regarding endoscopic evaluation for melena. He will be n.p.o. after midnight. The patient also with sinus tachycardia. He is being followed by cardiology and echo was done, which revealed a left normal ventricular size and wall and EF. We will request fo r cardiac clearance. The patient was seen and case discussed with Dr. Fisher. Elizabeth Arce EDMUNDO cc: [id number] TT: 06/22/2016 15:54:49 Confirmation # [id number] Dictation # [id number]
[2016-06-23] MEDS: Sodium Chloride 0.9% 1,000 ML IV SCH (05:16)
[2016-06-23] MEDS: HYDROmorphone 2 mg/ml ISec IVP PRN (05:22)
[2016-06-23 07:23] LABS: ADD MANUAL DIFF? NO
[2016-06-23 07:29] LABS: BASO # 0.01 K/mm3 (0.0-2.0); BASO % 0.1 % (0.0-3.0); EOS # 0.1 (0.0-0.7); EOS % 1.2 % (1.5-5.0); GRAN # 8.18 (1.4-6.5); HEMATOCRIT 31.7 % (42.0-52.0); LYMPH # 1.4 (1.2-3.4); LYMPH % 12.6 % (22.0-35.0); MEAN CELL VOLUME 94.9 fL (80.0-105.0); MEAN CORPUSCULAR HEMOGLOBIN 32.9 pg (25.0-35.0); MEAN CORPUSCULAR HGB CONC 34.7 g/dl (31.0-37.0); MEAN PLATELET VOLUME 10.3 fl (7.0-11.0); MONO # 1.5 (0.1-0.6); MONO % 13.1 % (1.0-6.0); PLATELET COUNT 195 10^3/uL (120.0-450.0); RED CELL DISTRIBUTION WIDTH 13.1 % (11.5-14.5); WHITE BLOOD COUNT 11.2 10^3/ul (4.5-11.0)
[2016-06-23 07:59] LABS: ALB/GLOB RATIO 0.9 (1.1-1.8); ALKALINE PHOSPHATASE 90 U/L (38-133); ALT/SGPT 51 U/L (7-56); AST/SGOT 44 U/L (15-59); BILIRUBIN,TOTAL 0.9 mg/dL (0.2-1.3); BLOOD UREA NITROGEN 3 mg/dL (7-21); CALCIUM 8.3 mg/dL (8.4-10.5); CARBON DIOXIDE 24 mmol/L (21-33); CHLORIDE 103 mmol/L (98-107); GFR AFRICAN-AMERICAN > 60; GLUCOSE,RANDOM 107 mg/dL (70-110); POTASSIUM 3.3 mmol/L (3.6-5.0); SODIUM 138 mmol/L (132-148); TOTAL PROTEIN 6.4 g/dL (5.8-8.3)
--- NOTE | 2016-06-23 08:13 | PN ---
DATE: 06/22/2016 Addendum to the GI progress note of MONO Vasquez. This patient was seen and evaluated earlier. Still continues to complain of epigastric discomfort. It is described as coffee ground, dark stool. There is some drop in hemoglobin noticed. The hemoglobin was 11. On examination, the patient still has tenderness. IMPRESSION: This 35-year-old patient was admitted with acute pancreatitis secondary to alcohol. History of nonsteroidal anti-inflammatory use, anemia, some drop in blood count, slight decrease in blood count noticed. History of dark stools, rule out possible gastrointestinal bleeding. Would benefit from the upper GI endoscopy. The patient remains tachycardic. If is optimized, may be scheduled for EGD procedure tomorrow. Sherman Fisher MD cc: [id number] TT: 06/23/2016 08:13:35 Confirmation # [id number] Dictation # [id number] MTDD
[2016-06-23] MEDS ORDERED: HYDROmorphone 2 mg/ml ISec IVP PRN (09:14)
[2016-06-23] MEDS ORDERED: Potassium Chloride 20 mEq ER Tab PO ONE (09:15)
[2016-06-23] MEDS ORDERED: Propofol 10 mg/ml Inj (20 ML) ONE ×2 (11:16→11:31)
[2016-06-23] MEDS ORDERED: Lidocaine 1% Inj (20ml) ONE (11:16)
[2016-06-23] MEDS ORDERED: Lactated Ringer's 1,000 ML IV SCH (11:50)
[2016-06-23] MEDS: POLYETHYLENE GLYCOL 3350 17 GM/Dose PACKET PO SCH (13:54)
[2016-06-23] MEDS: Naproxen 550 mg Tab PO PRN (16:26)
--- NOTE | 2016-06-23 16:47 | PN ---
DATE: 06/23/2016 The patient underwent upper endoscopy today. The findings are consistent with esophagogastric landma rks were identified. The gastroesophageal junction was found at 39 cm from the incisors. The esopha gitis was found at the gastroesophageal junction. Biopsies were taken by cold forceps. Patchy mild inflammation characterized by erythema was found in the gastric body and the gastric antrum. Examina tion of the duodenum was normal. Impression was: Reflux esophagitis, rule out Coles's esophagus a nd chronic gastritis. ASSESSMENT: 1. Pancreatitis. 2. ETOH abuse. 3. Hypertension. 4. Sinus tachycardia. RECOMMENDATIONS: Continue clonidine 0.1 mg q. 6 hours, Lopressor at 50 mg twice a day, normal saline 160 mL an hour. Obtain 12-lead EKG today and followup chest x-ray. Leonid Roberts MD cc: [id number] TT: 06/23/2016 16:47:08 Confirmation # [id number] Dictation # [id number]
--- NOTE | 2016-06-23 18:03 | CP.PCM.PN ---
<BebetoAmanda - Last Filed: 06/23/16 18:05> Subjective - Date & Time of Evaluation Date of Evaluation: 06/23/16 Time of Evaluation: 07:35 - Subjective Subjective: Pt seen and evaluated this AM. Has EGD later today. Currently denies SOB, chest pain, abdominal pain, n/v/urinary complaints and diarrhea. Afebrile overnight. Objective - Vital Signs/Intake and Output Vital Signs (last 24 hours): Temp Pulse Resp BP Pulse Ox 99.9 F H 113 H 18 140/96 H 99 06/23/16 13:13 06/23/16 16:26 06/23/16 13:13 06/23/16 16:26 06/23/16 12:29 Intake and Output: 06/23/16 06/23/16 06:59 18:59 Intake Total 3840 435 Output Total 1900 Balance 1940 435 - Medications Medications: Current Medications Clonidine HCl (Catapres) 0.1 mg PO Q6H PRN PRN Reason: Systolic Blood Pressure Last Admin: 06/23/16 16:26 Dose: 0.1 mg Docusate Sodium (Colace) 100 mg PO TID [facility] Last Admin: 06/23/16 13:53 Dose: 100 mg Gabapentin (Neurontin) 300 mg PO TID [facility] PRN Reason: Protocol Last Admin: 06/23/16 13:53 Dose: 300 mg Hydromorphone HCl (Dilaudid) 1 mg IVP Q6H PRN PRN Reason: Pain, severe (8-10) Sodium Chloride (Sodium Chloride 0.9%) 1,000 mls @ 160 mls/hr IV .Q6H15M [facility] Last Admin: 06/23/16 05:16 Dose: 160 mls/hr Metoprolol Tartrate (Lopressor) 50 mg PO Q12 [facility] Last Admin: 06/23/16 09:40 Dose: 50 mg Naproxen (Anaprox Ds) 550 mg PO BID PRN PRN Reason: Fever >100.4 F Last Admin: 06/23/16 16:26 Dose: 550 mg Ondansetron HCl (Zofran Inj) 4 mg IVP Q6H PRN PRN Reason: Nausea/Vomiting Oxycodone/Acetaminophen (Percocet 5/325 Mg Tab) 1 tab PO Q6H PRN PRN Reason: Pain, moderate (4-7) Stop: 06/24/16 13:41 Last Admin: 06/22/16 06:38 Dose: 1 tab Pantoprazole Sodium (Protonix Inj) 40 mg IVP DAILY [facility] Last Admin: 06/23/16 09:40 Dose: 40 mg Polyethylene Glycol (Miralax) 17 gm PO DAILY [facility] Last Admin: 06/23/16 13:54 Dose: 17 gm Sertraline HCl (Zoloft) 50 mg PO DAILY [facility] Last Admin: 06/23/16 13:54 Dose: 50 mg - Labs Labs: 06/23/16 07:00 06/23/16 07:00 PT 11.5 Seconds (9.9-11.8) 06/22/16 07:30 INR 1.06 (0.93-1.08) 06/22/16 07:30 APTT 34.5 Seconds (23.7-30.8) H 06/22/16 07:30 - Constitutional Appears: Non-toxic, No Acute Distress - Head Exam Head Exam: ATRAUMATIC, NORMOCEPHALIC - Eye Exam Eye Exam: EOMI, Normal appearance - ENT Exam ENT Exam: Mucous Membranes Moist, Normal Exam - Respiratory Exam Respiratory Exam: Clear to Ausculation Bilateral, NORMAL BREATHING PATTERN - Cardiovascular Exam Cardiovascular Exam: Tachycardia, +S1, +S2 - GI/Abdominal Exam GI & Abdominal Exam: Soft, Tenderness Additional comments: slight epigastric tenderness - Exam External exam: absent: Ecchymosis, Erythema - Extremities Exam Extremities Exam: Normal Capillary Refill, Normal Inspection - Neurological Exam Neurological Exam: Alert, Awake - Skin Skin Exam: Intact, Normal Color Assessment and Plan - Assessment and Plan (Free Text) Plan: 35 year old male with past medical history of ETOH abuse and depression is admitted for acute pancreatitis. On blood work, lipase is 4524 initially and is on downtrend (788). LFTs were elevated and trended down, now wnl. Wbc currently 11.2. Urine positive for opiates and cannabinoids. Acute pancreatitis * GI consulted, help appreciated * wbc of 11.2 * ABD US showed findings consistent with fatty infiltration of liver [see full report] * soft diet, which he is tolerating * NS @ 160 cc * Zofran * Protonix * pain management with dilaudid and oxycodone PO ETOH withdrawal resolved HTN * pain induced vs withdrawals * Clonidine .1 mg Q6H * metoprolol 50mg qd NSR Tachycardia * metoprolol * NS 160 cc/hr * cardiology consult, help appreciated * ECHO report shows normal EF with grade I abnormal relaxation pattern. * Cardiac consult Dr. Roberts, help appreciated. * f/u EKG and CXR from today Transaminitis resolved * ABD US showed findings consistent with fatty infiltration however other infiltrative hepatocellular disease not completely excluded [see full report] * hep panel ordered * Lipid panel: Triglycerides 404, Cholesterol 285, HDL 173, HDL 49 * Will continue to monitor Depression: home medication is sertraline 100 mg PO QD, 50 mg PO QD ordered, with taper up of 25mg PO once a week Electrolytes: hypokalemia repleted today Hx of dark stools EGD on 06/23/2016 showed esophagitis, and gastritis, with biopsies taken, including for r/o of Barretts. recommendation of f/u at GI clinic out pt. Recommendation of no alcohol was spoken to pt today Substance abuse * Urine tox positive for opiates and cannabinoids * alcohol level elevated * advised on cessation Prophylaxis * SCDS, heparin Case discussed with attending <Enrrique NIETO,[facility] - Last Filed: 06/24/16 12:43> Objective - Vital Signs/Intake and Output Vital Signs (last 24 hours): Temp Pulse Resp BP Pulse Ox 98.8 F 109 H 22 130/91 H 95 06/24/16 11:41 06/24/16 11:41 06/24/16 11:41 06/24/16 11:41 06/24/16 05:42 Intake and Output: 06/24/16 06/24/16 06:59 18:59 Intake Total 240 Balance 240 - Medications Medications: Current Medications Clonidine HCl (Catapres) 0.1 mg PO Q6H PRN PRN Reason: Systolic Blood Pressure Last Admin: 06/23/16 16:26 Dose: 0.1 mg Docusate Sodium (Colace) 100 mg PO TID MICHELE Last Admin: 06/24/16 10:53 Dose: 100 mg Gabapentin (Neurontin) 300 mg PO TID [facility] PRN Reason: Protocol Last Admin: 06/24/16 10:52 Dose: 300 mg Hydromorphone HCl (Dilaudid) 1 mg IVP Q6H PRN PRN Reason: Pain, severe (8-10) Last Admin: 06/24/16 12:30 Dose: 1 mg Sodium Chloride (Sodium Chloride 0.9%) 1,000 mls @ 160 mls/hr IV .Q6H15M [facility] Last Admin: 06/23/16 05:16 Dose: 160 mls/hr Ceftriaxone Sodium (Rocephin 1 Gram Ivpb) 1 gm in 100 mls @ 100 mls/hr IVPB DAILY [facility] PRN Reason: Protocol Last Admin: 06/24/16 10:42 Dose: 100 mls/hr Metoprolol Tartrate (Lopressor) 50 mg PO Q12 [facility] Last Admin: 06/24/16 10:42 Dose: 50 mg Naproxen (Anaprox Ds) 550 mg PO BID PRN PRN Reason: Fever >100.4 F Last Admin: 06/23/16 16:26 Dose: 550 mg Ondansetron HCl (Zofran Inj) 4 mg IVP Q6H PRN PRN Reason: Nausea/Vomiting Last Admin: 06/23/16 21:28 Dose: 4 mg Oxycodone/Acetaminophen (Percocet 5/325 Mg Tab) 1 tab PO Q6H PRN PRN Reason: Pain, moderate (4-7) Stop: 06/24/16 13:41 Last Admin: 06/22/16 06:38 Dose: 1 tab Pantoprazole Sodium (Protonix Inj) 40 mg IVP DAILY [facility] Last Admin: 06/24/16 10:59 Dose: 40 mg Polyethylene Glycol (Miralax) 17 gm PO DAILY [facility] Last Admin: 06/24/16 10:42 Dose: 17 gm Sertraline HCl (Zoloft) 50 mg PO DAILY [facility] Last Admin: 06/24/16 10:41 Dose: 50 mg - Labs Labs: 06/24/16 07:41 06/24/16 07:41 PT 11.5 Seconds (9.9-11.8) 06/22/16 07:30 INR 1.06 (0.93-1.08) 06/22/16 07:30 APTT 34.5 Seconds (23.7-30.8) H 06/22/16 07:30 Attending/Attestation - Attestation I have personally seen and examined this patient.: Yes I have fully participated in the care of the patient.: Yes I have reviewed all pertinent clinical information, including history, physical exam and plan: Yes Notes (Text): 06/24/16 12:41 Patient was seen and examined with certified medical coder .Agreed with resident assessment and plan. 35 year old male with past medical history of alcohol abuse and depression was admitted for acute pancreatitis, abdominal pain is improving.Patient is tolerating liquid diet, still have sinus tachycardia and HTN, but improving on metoprolol.There is no sign of alcohol withdrawal. Abdominal pain is better , Sinus tachycardia is multifactorial due to pain and dehydration.LFT are back to normal.Patient EGD showed Reflex esophagitis , biopsies were taken, patient is on PPI.Diet has been advance to soft mechanical diet.If he keep improving, can be discharged in 24 hour. Management plan was discussed in detail with patient Education was provided.
--- NOTE | 2016-06-23 19:40 | CARD ---
APPROVED REPORT EKG Measurement Heart [id number] <Conclusion> Sinus tachycardia Otherwise normal ECG
[2016-06-23] MEDS: cefTRIAXone 1 gm 1 GM/100 ML BAG IVPB SCH (20:00)
[2016-06-23] MEDS: HYDROmorphone 1 mg/ml ISec IVP PRN (21:28)
[2016-06-24 05:44] VITALS: O2SAT 95
[2016-06-24 07:44] LABS: ADD MANUAL DIFF? NO
--- NOTE | 2016-06-24 07:48 | RAD ---
PROCEDURE: CHEST RADIOGRAPH, 1 VIEW HISTORY: TACHYCARDIA COMPARISON: None available. FINDINGS: LUNGS: Clear. PLEURA: No pneumothorax or pleural fluid seen. CARDIOVASCULAR: Normal. OSSEOUS STRUCTURES: No significant abnormalities. VISUALIZED UPPER ABDOMEN: Normal. OTHER FINDINGS: None. IMPRESSION: No active disease.
[2016-06-24 08:01] LABS: BASO # 0.01 K/mm3 (0.0-2.0); BASO % 0.1 % (0.0-3.0); EOS # 0.1 (0.0-0.7); GRAN # 9.57 (1.4-6.5); GRAN % 78.2 % (50.0-68.0); HEMATOCRIT 30.5 % (42.0-52.0); LYMPH # 1.2 (1.2-3.4); MEAN CELL VOLUME 94.4 fL (80.0-105.0); MEAN CORPUSCULAR HEMOGLOBIN 33.1 pg (25.0-35.0); MEAN CORPUSCULAR HGB CONC 35.1 g/dl (31.0-37.0); MEAN PLATELET VOLUME 10.3 fl (7.0-11.0); MONO # 1.3 (0.1-0.6); MONO % 10.7 % (1.0-6.0); PLATELET COUNT 262 10^3/uL (120.0-450.0); RED CELL DISTRIBUTION WIDTH 13.3 % (11.5-14.5); WHITE BLOOD COUNT 12.2 10^3/ul (4.5-11.0)
[2016-06-24 08:05] LABS: ALKALINE PHOSPHATASE 93 U/L (38-133); ALT/SGPT 49 U/L (7-56); AST/SGOT 39 U/L (15-59); BILIRUBIN,TOTAL 0.6 mg/dL (0.2-1.3); BLOOD UREA NITROGEN 4 mg/dL (7-21); CARBON DIOXIDE 23 mmol/L (21-33); CHLORIDE 106 mmol/L (95-110); GFR AFRICAN-AMERICAN > 60; GLUCOSE,RANDOM 145 mg/dL (70-110); SODIUM 136 mmol/L (132-148); TOTAL PROTEIN 6.1 g/dL (5.8-8.3)
[2016-06-24 08:14] LABS: ALB/GLOB RATIO 0.8 (1.1-1.8)
[2016-06-24 08:19] LABS: CALCIUM 8.2 mg/dL (8.4-10.5)
--- NOTE | 2016-06-24 10:36 | CP.PCM.DIS ---
Addendum entered and electronically signed by Amanda Tate DO 06/24/16 10:51: initial ETOH value is 191 Original Note: <Amanda Tate - Last Filed: 06/24/16 10:47> Provider - Provider Date of Admission: 06/17/16 08:49 Attending physician: Jazzy Osuna MD Primary care physician: [email or web address] CADE at [place], [place] Consults: Sherman [facility] Time Spent in preparation of Discharge (in minutes): 36 Hospital Course - Lab Results Lab Results: Most Recent Lab Values WBC 12.2 10^3/ul (4.5-11.0) H 06/24/16 07:41 RBC 3.23 10^6/uL (3.5-6.1) L 06/24/16 07:41 Hgb 10.7 gm/dL (14.0-18.0) L 06/24/16 07:41 Hct 30.5 % (42.0-52.0) L 06/24/16 07:41 MCV 94.4 fL (80.0-105.0) 06/24/16 07:41 MCH 33.1 pg (25.0-35.0) 06/24/16 07:41 MCHC 35.1 g/dl (31.0-37.0) 06/24/16 07:41 RDW 13.3 % (11.5-14.5) 06/24/16 07:41 Plt Count 262 10^3/uL (120.0-450.0) 06/24/16 07:41 MPV 10.3 fl (7.0-11.0) 06/24/16 07:41 Gran % 78.2 % (50.0-68.0) H 06/24/16 07:41 Lymph % (Auto) 10.0 % (22.0-35.0) L 06/24/16 07:41 [place] % (Auto) 10.7 % (1.0-6.0) H 06/24/16 07:41 Eos % (Auto) 1.0 % (1.5-5.0) L 06/24/16 07:41 Baso % (Auto) 0.1 % (0.0-3.0) 06/24/16 07:41 Gran # 9.57 (1.4-6.5) H 06/24/16 07:41 Lymph # 1.2 (1.2-3.4) 06/24/16 07:41 [place] # 1.3 (0.1-0.6) H 06/24/16 07:41 Eos # 0.1 (0.0-0.7) 06/24/16 07:41 Baso # 0.01 K/mm3 (0.0-2.0) 06/24/16 07:41 Neutrophils % (Manual) 89 % (50.0-70.0) H 06/18/16 06:20 Lymphocytes % (Manual) 7 % (22.0-35.0) L 06/18/16 06:20 Monocytes % (Manual) 4 % (1.0-6.0) 06/18/16 06:20 PT 11.5 Seconds (9.9-11.8) 06/22/16 07:30 INR 1.06 (0.93-1.08) 06/22/16 07:30 APTT 34.5 Seconds (23.7-30.8) H 06/22/16 07:30 Sodium 136 mmol/L (132-148) 06/24/16 07:41 Potassium 3.0 mmol/L (3.6-5.0) L 06/24/16 07:41 Chloride 106 mmol/L (95-110) 06/24/16 07:41 Carbon Dioxide 23 mmol/L (21-33) 06/24/16 07:41 Anion Gap 10 (10-20) 06/24/16 07:41 BUN 4 mg/dL (7-21) L 06/24/16 07:41 Creatinine 0.6 mg/dL (0.5-1.4) 06/24/16 07:41 Est GFR ( Amer) > 60 06/24/16 07:41 Est GFR (Non-Af Amer) > 60 06/24/16 07:41 Random Glucose 145 mg/dL (70-110) H 06/24/16 07:41 Calcium 8.2 mg/dL (8.4-10.5) L 06/24/16 07:41 Magnesium 2.1 mg/dL (1.7-2.2) 06/23/16 07:00 Total Bilirubin 0.6 mg/dL (0.2-1.3) 06/24/16 07:41 AST 39 U/L (15-59) 06/24/16 07:41 ALT 49 U/L (7-56) 06/24/16 07:41 Alkaline Phosphatase 93 U/L (38-133) 06/24/16 07:41 Total Protein 6.1 g/dL (5.8-8.3) 06/24/16 07:41 Albumin 2.8 g/dL (3.0-4.8) L 06/24/16 07:41 Globulin 3.3 gm/dL 06/24/16 07:41 Albumin/Globulin Ratio 0.8 (1.1-1.8) L 06/24/16 07:41 Triglycerides 404 mg/dL (35-160) H 06/17/16 09:21 Cholesterol 285 mg/dL (130-200) H 06/17/16 09:21 LDL Cholesterol Direct 173 mg/dL (0-129) H 06/17/16 09:21 HDL Cholesterol 49 mg/dL (29-60) 06/17/16 09:21 Lipase 74 U/L (23-300) 06/22/16 07:30 TSH 3rd Generation 1.19 mIU/mL (0.46-4.68) 06/18/16 11:26 Urine Color Yellow (YELLOW) 06/17/16 09:27 Urine Appearance Clear (CLEAR) 06/17/16 09:27 Urine pH 7.0 (4.7-8.0) 06/17/16 09:27 Ur Specific [place] 1.015 (1.005-1.035) 06/17/16 09:27 Urine Protein Negative mg/dL (<30 mg/dL) 06/17/16 09:27 Urine Glucose (UA) Negative mg/dL (NEGATIVE) 06/17/16 09:27 Urine Ketones Trace mg/dL (NEGATIVE) H 06/17/16 09:27 Urine Blood Negative (NEGATIVE) 06/17/16 09:27 Urine Nitrate Negative (NEGATIVE) 06/17/16 09:27 Urine Bilirubin Negative (NEGATIVE) 06/17/16 09:27 Urine Urobilinogen 0.2 E.U./dL (<1 E.U./dL) 06/17/16 09:27 Ur Leukocyte Esterase Negative Katharine/uL (NEGATIVE) 06/17/16 09:27 Urine Opiates Screen Positive (NEGATIVE) H 06/17/16 09:27 Urine Methadone Screen Negative (NEGATIVE) 06/17/16 09:27 Ur Barbiturates Screen Negative (NEGATIVE) 06/17/16 09:27 Ur Phencyclidine Scrn Negative (NEGATIVE) 06/17/16 09:27 Ur Amphetamines Screen Negative (NEGATIVE) 06/17/16 09:27 U Benzodiazepines Scrn Negative (NEGATIVE) 06/17/16 09:27 U Oth Cocaine Metabols Negative (NEGATIVE) 06/17/16 09:27 U Cannabinoids Screen Positive (NEGATIVE) H 06/17/16 09:27 Alcohol, Quantitative 191 mg/dL (0-10) H 06/17/16 09:21 Hepatitis A IgM Ab Negative (NEGATIVE) 06/17/16 08:00 Hep Bs Antigen Negative (NEGATIVE) 06/17/16 08:00 Hep B Core IgM Ab Negative (NEGATIVE) 06/17/16 08:00 Hepatitis C Antibody Negative (NEGATIVE) 06/17/16 08:00 - Hospital Course Hospital Course: 35 y/o male with pmhx of etoh abuse presented with epigastric pain radiating to the pack with vomting episodes. Lipase was 4524, and LFTs were elevated with ast being 87 and ALT being 100. Initial presentation included being tachycardic in the 140's and hypertensive with NSR EKG. ETOH level upon presentation is: Admitted to telemetry with dx of pancreatitis and etoh withdrawal. On the floor, IV fluids started and CIWA protocol started with librium and ativan PRN onboard, folic acid, thiamine and multivitamin administered. Diet slowly advanced. CT w/ pancreatic protocol showed severe pancreatitis. Tachycardia and hypertension treated with pain control, IVF and metoprolol. Pt has history of dark stools so EGD done and had biopsy samples taken, and findings were of esophagitis, gastritis. Hypocalcemia and Hypokalemia repleted and resolved during course of admission. Pt d/c home in fair condition, and upon discharge, discussed at length w/ pt concerning ETOH cessation, NSAID avoidance and given the following instructions: You are discharged home. Please follow up with your primary doctor within one week of discharge. Please take the following new medications: Metoprolol 50 mg by mouth twice daily, omeprazole 40 mg by mouth daily and percocet 5/325 one tab every six hours by mouth as needed, Daily Multivitamin, daily folic acid tab and daily thiamine tab. Avoid alcohol, aspirin and NSAIDS. Return to GI clinic for follow-up care and biopsy results from recent EGD with Dr. Fisher. Return to the emergency department for worsening of symptoms. Discharge Exam - Head Exam Head Exam: ATRAUMATIC, NORMOCEPHALIC - Eye Exam Eye Exam: EOMI, Normal appearance Pupil Exam: NORMAL ACCOMODATION, PERRL - ENT Exam ENT Exam: Mucous Membranes Moist, Normal Exam - Respiratory Exam Respiratory Exam: NORMAL BREATHING PATTERN, UNREMARKABLE - Cardiovascular Exam Cardiovascular Exam: Tachycardia, +S1, +S2 - GI/Abdominal Exam GI & Abdominal Exam: Normal Bowel Sounds, Soft, Tenderness Additional comments: slight epigastric tenderness - Exam External exam: absent: Ecchymosis, Erythema - Extremities Exam Extremities exam: normal capillary refill, pedal pulses present - Neurological Exam Neurological exam: Alert, Oriented x3 - Skin Skin Exam: Intact, Normal Color Discharge Plan - Discharge Medications Prescriptions: Folic Acid 1 mg PO DAILY #14 tab Metoprolol Tartrate [Lopressor] 50 mg PO Q12 #28 tab Multivitamin [Men's Multi-Vitamin] 1 each PO DAILY #14 tablet Omeprazole 40 mg PO DAILY #14 capsule. oxyCODONE/Acetaminophen [Percocet 5/325 mg Tab] 1 tab PO Q6H PRN #9 tab PRN Reason: Pain, Severe (8-10) Thiamine [Vitamin B1 Tab] 100 mg PO DAILY #14 tab - Follow Up Plan Condition: FAIR Disposition: HOME/ ROUTINE Instructions: Pancreatitis (DC), Acute Abdominal Pain (DC), Acute Abdominal Pain (GEN) Additional Instructions: You are discharged home. Please follow up with your primary doctor within one week of discharge. Please take the following new medications: Metoprolol 50 mg by mouth twice daily, omeprazole 40 mg by mouth daily and percocet 5/325 one tab every six hours by mouth as needed, Daily Multivitamin, daily folic acid tab and daily thiamine tab. Resume your home medications except for any blood pressure medications. Avoid alcohol, aspirin and NSAIDS. Return to GI clinic for follow-up care and biopsy results from recent EGD with Dr. Fisher. Return to the emergency department for worsening of symptoms. For three days after discharge, please eat a soft diet was we discussed. Referrals: Sherman Fisher MD [Medical Doctor] - <Jazzy Osuna MD - Last Filed: 06/24/16 12:50> Provider - Provider Date of Admission: 06/17/16 08:49 Attending physician: Jazzy Osuna MD Hospital Course - Lab Results Lab Results: Most Recent Lab Values WBC 12.2 10^3/ul (4.5-11.0) H 06/24/16 07:41 RBC 3.23 10^6/uL (3.5-6.1) L 06/24/16 07:41 Hgb 10.7 gm/dL (14.0-18.0) L 06/24/16 07:41 Hct 30.5 % (42.0-52.0) L 06/24/16 07:41 MCV 94.4 fL (80.0-105.0) 06/24/16 07:41 MCH 33.1 pg (25.0-35.0) 06/24/16 07:41 MCHC 35.1 g/dl (31.0-37.0) 06/24/16 07:41 RDW 13.3 % (11.5-14.5) 06/24/16 07:41 Plt Count 262 10^3/uL (120.0-450.0) 06/24/16 07:41 MPV 10.3 fl (7.0-11.0) 06/24/16 07:41 Gran % 78.2 % (50.0-68.0) H 06/24/16 07:41 Lymph % (Auto) 10.0 % (22.0-35.0) L 06/24/16 07:41 [place] % (Auto) 10.7 % (1.0-6.0) H 06/24/16 07:41 Eos % (Auto) 1.0 % (1.5-5.0) L 06/24/16 07:41 Baso % (Auto) 0.1 % (0.0-3.0) 06/24/16 07:41 Gran # 9.57 (1.4-6.5) H 06/24/16 07:41 Lymph # 1.2 (1.2-3.4) 06/24/16 07:41 [place] # 1.3 (0.1-0.6) H 06/24/16 07:41 Eos # 0.1 (0.0-0.7) 06/24/16 07:41 Baso # 0.01 K/mm3 (0.0-2.0) 06/24/16 07:41 Neutrophils % (Manual) 89 % (50.0-70.0) H 06/18/16 06:20 Lymphocytes % (Manual) 7 % (22.0-35.0) L 06/18/16 06:20 Monocytes % (Manual) 4 % (1.0-6.0) 06/18/16 06:20 PT 11.5 Seconds (9.9-11.8) 06/22/16 07:30 INR 1.06 (0.93-1.08) 06/22/16 07:30 APTT 34.5 Seconds (23.7-30.8) H 06/22/16 07:30 Sodium 136 mmol/L (132-148) 06/24/16 07:41 Potassium 3.0 mmol/L (3.6-5.0) L 06/24/16 07:41 Chloride 106 mmol/L (95-110) 06/24/16 07:41 Carbon Dioxide 23 mmol/L (21-33) 06/24/16 07:41 Anion Gap 10 (10-20) 06/24/16 07:41 BUN 4 mg/dL (7-21) L 06/24/16 07:41 Creatinine 0.6 mg/dL (0.5-1.4) 06/24/16 07:41 Est GFR ( Amer) > 60 06/24/16 07:41 Est GFR (Non-Af Amer) > 60 06/24/16 07:41 Random Glucose 145 mg/dL (70-110) H 06/24/16 07:41 Calcium 8.2 mg/dL (8.4-10.5) L 06/24/16 07:41 Magnesium 2.1 mg/dL (1.7-2.2) 06/23/16 07:00 Total Bilirubin 0.6 mg/dL (0.2-1.3) 06/24/16 07:41 AST 39 U/L (15-59) 06/24/16 07:41 ALT 49 U/L (7-56) 06/24/16 07:41 Alkaline Phosphatase 93 U/L (38-133) 06/24/16 07:41 Total Protein 6.1 g/dL (5.8-8.3) 06/24/16 07:41 Albumin 2.8 g/dL (3.0-4.8) L 06/24/16 07:41 Globulin 3.3 gm/dL 06/24/16 07:41 Albumin/Globulin Ratio 0.8 (1.1-1.8) L 06/24/16 07:41 Triglycerides 404 mg/dL (35-160) H 06/17/16 09:21 Cholesterol 285 mg/dL (130-200) H 06/17/16 09:21 LDL Cholesterol Direct 173 mg/dL (0-129) H 06/17/16 09:21 HDL Cholesterol 49 mg/dL (29-60) 06/17/16 09:21 Lipase 74 U/L (23-300) 06/22/16 07:30 TSH 3rd Generation 1.19 mIU/mL (0.46-4.68) 06/18/16 11:26 Urine Color Yellow (YELLOW) 06/17/16 09:27 Urine Appearance Clear (CLEAR) 06/17/16 09:27 Urine pH 7.0 (4.7-8.0) 06/17/16 09:27 Ur Specific [place] 1.015 (1.005-1.035) 06/17/16 09:27 Urine Protein Negative mg/dL (<30 mg/dL) 06/17/16 09:27 Urine Glucose (UA) Negative mg/dL (NEGATIVE) 06/17/16 09:27 Urine Ketones Trace mg/dL (NEGATIVE) H 06/17/16 09:27 Urine Blood Negative (NEGATIVE) 06/17/16 09:27 Urine Nitrate Negative (NEGATIVE) 06/17/16 09:27 Urine Bilirubin Negative (NEGATIVE) 06/17/16 09:27 Urine Urobilinogen 0.2 E.U./dL (<1 E.U./dL) 06/17/16 09:27 Ur Leukocyte Esterase Negative Katharine/uL (NEGATIVE) 06/17/16 09:27 Urine Opiates Screen Positive (NEGATIVE) H 06/17/16 09:27 Urine Methadone Screen Negative (NEGATIVE) 06/17/16 09:27 Ur Barbiturates Screen Negative (NEGATIVE) 06/17/16 09:27 Ur Phencyclidine Scrn Negative (NEGATIVE) 06/17/16 09:27 Ur Amphetamines Screen Negative (NEGATIVE) 06/17/16 09:27 U Benzodiazepines Scrn Negative (NEGATIVE) 06/17/16 09:27 U Oth Cocaine Metabols Negative (NEGATIVE) 06/17/16 09:27 U Cannabinoids Screen Positive (NEGATIVE) H 06/17/16 09:27 Alcohol, Quantitative 191 mg/dL (0-10) H 06/17/16 09:21 Hepatitis A IgM Ab Negative (NEGATIVE) 06/17/16 08:00 Hep Bs Antigen Negative (NEGATIVE) 06/17/16 08:00 Hep B Core IgM Ab Negative (NEGATIVE) 06/17/16 08:00 Hepatitis C Antibody Negative (NEGATIVE) 06/17/16 08:00 Attending/Attestation - Attestation I have personally seen and examined this patient.: Yes I have fully participated in the care of the patient.: Yes I have reviewed all pertinent clinical information, including history, physical exam and plan: Yes Notes (Text): 06/24/16 12:44 Patient was seen and examined with nuclear medicine medical director .Agreed with resident assessment and plan. 35 year old male with past medical history of alcohol abuse and depression was admitted for acute pancreatitis, abdominal pain is improving.Patient is tolerating soft diet with out any problem.Sinus tachycardia has improved.Heart rate is in 90 today.Sinus tachycardia was multifactorial due to pain and dehydration and alcohol withdrawal.His LFT are back to normal.Hemoglobin is stable.He had EGD yesterday that showed reflex esophagitis. Patient has been advised not to use NSAID and avoid Aspirin. Issue of chronic alcohol abuse was also discussed in detail with patient.Patient has also been advised to check his blood pressure every day. He will follow up with [facility] clinic and will follow up biopsies result with GI. Management plan was discussed in detail with patient Education was provided. 06/24/16 12:49
[2016-06-24] MEDS ORDERED: Potassium Chloride 20 mEq ER Tab PO ONE (10:41)
[2016-06-24] MEDS: cefTRIAXone 1 gm 1 GM/100 ML BAG IVPB SCH (10:42)
[2016-06-24] MEDS ORDERED: Potassium Chloride 40 mEq/30 ml LIQ UD PO ONE (10:42)
[2016-06-24] MEDS: POLYETHYLENE GLYCOL 3350 17 GM/Dose PACKET PO SCH (10:42)
[2016-06-24 11:42] VITALS: BP 130/91; PULSE 109; RESP 22; TEMP 98.8
[2016-06-24] MEDS: HYDROmorphone 1 mg/ml ISec IVP PRN (12:30)
== END 2016-06-24 15:42 | disposition home or self-care (01) | DRG 204 ==
LOC: ED 06:31 → ERH 08:49 → 2RSO 10:50
PROVIDERS: ADMIT Internal Medicine; ATTEND Internal Medicine
PROC: 0DB68ZX Excision of Stomach, Via Natural or Artificial Opening Endoscopic, Diagnostic (ICD-10-PCS; 2016-06-23)
PROC: 0DB58ZX Excision of Esophagus, Via Natural or Artificial Opening Endoscopic, Diagnostic (ICD-10-PCS; principal; 2016-06-23 09:30)
DX: K85.20 Alcohol induced acute pancreatitis without necrosis or infection (principal); D69.6 Thrombocytopenia, unspecified; K76.0 Fatty (change of) liver, not elsewhere classified; F10.239 Alcohol dependence with withdrawal, unspecified; E87.6 Hypokalemia; F11.10 Opioid abuse, uncomplicated; E86.0 Dehydration; F32.9 Major depressive disorder, single episode, unspecified; R00.0 Tachycardia, unspecified; K21.0 Gastro-esophageal reflux disease with esophagitis; I10 Essential (primary) hypertension; F12.10 Cannabis abuse, uncomplicated; K70.9 Alcoholic liver disease, unspecified; E83.51 Hypocalcemia; K29.50 Unspecified chronic gastritis without bleeding; B96.81 Helicobacter pylori [H. pylori] as the cause of diseases classified elsewhere; Y90.6 Blood alcohol level of 120-199 mg/100 ml; Z87.891 Personal history of nicotine dependence

== ENCOUNTER 2017-10-05 10:51 | Inpatient (IN) | payer MEDICAID, OTHER ==
[2017-10-05 10:53] VITALS: BMI 29.7
[2017-10-05] MEDS ORDERED: Sodium Chloride 0.9% 1,000 ML IV STA (11:19)
--- NOTE | 2017-10-05 11:23 | ED PDOC ---
Arrival/HPI - General Chief Complaint: Abdominal Pain Time Seen by Provider: 10/05/17 10:53 Historian: Patient - History of Present Illness Narrative History of Present Illness (Text): 10/05/17 11:20 36 yr old male w/ hx of HTN, etoh abuse (now sober), pancreatitis p/w abdominal pain. Abdominal pain x2d, epigastric, radiating to back, feels exactly alike previous pancreatitis. No chest pain or sob. No new medications. No scorpion stings. No longer drinking etoh. No hx of HLD. No recent viral illness. Pt notes that he has been having diarrhea as well x2d, non bloody, non dark. Diarrhea once a day, with normal stools in between. No urinary complaints. No rashes. No fever, chills or night sweats. No other complaints. PMD: Dr. Samayoa @ MD Time/Duration: Other (2d) Symptom Onset: Gradual Quality: Aching Severity Level: 5 Past Medical History - Provider Review Nursing Documentation Reviewed: Yes - Travel History Have you recently traveled outside [place] w/in the past 3 mons?: No - Infectious Disease Hx of Infectious Diseases: None - Tetanus Immunization Tetanus Immunization: Unknown - Cardiac Hx Cardiac Disorders: No - Pulmonary Hx Respiratory Disorders: No - Neurological Hx Neurological Disorder: No - HEENT Hx HEENT Disorder: No - Renal Hx Renal Disorder: No - Endocrine/Metabolic Hx Endocrine Disorders: No - Hematological/Oncological Hx Blood Transfusions: No - Integumentary Hx Dermatological Disorder: No - Musculoskeletal/Rheumatological Hx Musculoskeletal Disorders: No - Gastrointestinal Hx Gastrointestinal Disorders: Yes Hx Gastritis: Yes Hx Pancreatitis: Yes - Genitourinary/Gynecological Hx Genitourinary Disorders: No - Psychiatric Hx Psychophysiologic Disorder: No Hx Substance Use: Yes (marijuana) - Surgical History Other/Comment: dental surgery - Anesthesia Hx Anesthesia Reactions: No Hx Malignant Hyperthermia: No Family/Social History Family/Social History: Unknown Family HX Smoking Status: Light Smoker < 10 Cigarettes Daily Hx Alcohol Use: Yes Hx Substance Use: Yes (marijuana) Substance used: marijuana Allergies/Home Meds Allergies/Adverse Reactions: Allergies No Known Allergies Allergy (Verified 10/05/17 11:04) Home Medications: Home Meds Medication Instructions Recorded Confirmed Gabapentin [Neurontin] 300 mg PO TID 06/17/16 10/05/17 Omeprazole [Omeprazole] 20 mg PO DAILY 06/17/16 10/05/17 Prazosin HCL [Minipress] 06/19/16 Sertraline HCl 100 mg PO DAILY 06/19/16 10/05/17 Review of Systems - Review of Systems Constitutional: Normal Eyes: Normal ENT: Normal Respiratory: Normal Cardiovascular: Normal Gastrointestinal: Abdominal Pain, Nausea. absent: Normal Genitourinary Male: Normal Musculoskeletal: Normal Skin: Normal Neurological: Normal Endocrine: Normal Hemo/Lymphatic: Normal Psychiatric: Normal Physical Exam Vital Signs Reviewed: Yes Vital Signs Temp Pulse Resp BP Pulse Ox 10/05/17 17:43 18 10/05/17 17:27 69 136/91 H 10/05/17 16:42 98.3 F 84 20 139/101 H 100 10/05/17 14:29 98.6 F 83 20 127/67 100 10/05/17 12:30 80 20 133/101 H 100 10/05/17 11:00 97.8 F 86 18 159/104 H 99 Temperature: Afebrile Blood Pressure: Normal Pulse: Regular Respiratory Rate: Normal Appearance: Positive for: Well-Appearing, Non-Toxic, Comfortable Pain Distress: None Mental Status: Positive for: Alert and Oriented X 3 - Systems Exam Head: Present: Atraumatic, Normocephalic Pupils: Present: PERRL Extroacular Muscles: Present: EOMI Conjunctiva: Present: Normal Mouth: Present: Moist Mucous Membranes Neck: Present: Normal Range of Motion Respiratory/Chest: Present: Clear to Auscultation, Good Air Exchange. No: Respiratory Distress, Accessory Muscle Use Cardiovascular: Present: Regular Rate and Rhythm, Normal S1, S2. No: Murmurs Abdomen: Present: Tenderness (epigastric). No: Distention, Peritoneal Signs Back: Present: Normal Inspection. No: CVA Tenderness Upper Extremity: Present: Normal Inspection. No: Cyanosis, Edema Lower Extremity: Present: Normal Inspection. No: Edema Neurological: Present: GCS=15, CN II-XII Intact, Speech Normal Skin: Present: Warm, Dry, Normal Color. No: Rashes Psychiatric: Present: Alert, Oriented x 3, Normal Insight, Normal Concentration Medical Decision Making ED Course and Treatment: 10/05/17 11:24 36 yr old M w/ hx of pancreatitis, previous etoh abuse p/w epigastric pain radiating to back. Feels like pancreatitis per pt. No recent triggers of etoh per pt. Pt also notes RUQ to epigastric pain on repeat exams. Will US to check for stones. No urinary complaints or CVAT. No CP or SOB. No cardiac history or in family. No drug use. Plan: US, IV, Fluids, Pain control, Labs. 10/05/17 12:22 Pt notes fentanyl non-improved pain. Pt requesting dilaudid. Informed pt of dilaudid free ED. Pt agreed to morphine equivalent dosage. 10/05/2017 12:23 Gallbladder Ultrasound IMPRESSION: No cholelithiasis or biliary dilatation. Mild hepatomegaly. Diffuse increased echogenicity in the liver may reflect hepatic steatosis however parenchymal infectious/inflammatory etiologies cannot be entirely excluded. Clinical and laboratory correlation is advised. Dictator: Heike Donald MD 10/05/17 13:14 Lactate level currently 3.5. Ordered CT and EKG. Lipase unremarkable. Given repeated dosage of morphine. 10/05/2017 14:51 Abd/Pelvis CT IMPRESSION: There is a large well-defined thick-walled cyst arising from the body of the pancreas consistent with a pseudocyst. This measures 107 mm wide by 74 mm AP x 78 m in height. There is no evidence of acute inflammation. Dictator: Cal Peguero MD 10/05/17 15:00 EKG: Ordered, reviewed, and independently interpreted the EKG. Rate : 68 BPM Rhythm : NSR Interpretation : No STEMI. No ST-segment elevations or depressions, no T-wave inversions, normal intervals. Comparison : No previous EKG for comparison. 10/05/17 16:11 Troponin is negative. labs largely unremarkable. imaging unremarkable except for pseudocyst which is known to pt. Upon re-evaluation, patient appears comfortable in bed but states he still experiencing 9/10 pain. Intractable pain , endorsed to PMD- Per Dr. Garcia- hospitalist to admit. Patient endorsed to Dr. Soriano for intractable pain. - Lab Interpretations Lab Results: 10/05/17 12:40 10/05/17 15:25 Lab Results 10/05/17 15:25: Sodium 138, Chloride 100, Potassium 3.7, Carbon Dioxide 24, Anion Gap 18, BUN 8, Creatinine 0.7 L, Est GFR ( Amer) > 60, Est GFR (Non -Af Amer) > 60, Random Glucose 113 H, Calcium 8.9, Phosphorus 3.0, Magnesium 1.5 L, Total Bilirubin 0.8, AST 38, ALT 37, Alkaline Phosphatase 104, Total Protein 7.6, Albumin 4.2, Globulin 3.4, Albumin/Globulin Ratio 1.2 10/05/17 15:25: Troponin I < 0.01 10/05/17 12:40: Sodium 139, Chloride 98, Potassium 4.4, Carbon Dioxide 27, Anion Gap 18, BUN 9, Creatinine 0.7 L, Est GFR ( Amer) > 60, Est GFR (Non -Af Amer) > 60, Random Glucose 125 H, Calcium 9.7, Magnesium 1.6 L, Total Bilirubin 0.8, AST 37, ALT 33, Alkaline Phosphatase 117, Total Protein 8.7 H, Albumin 4.9 H, Globulin 3.8, Albumin/Globulin Ratio 1.3, Lipase 281 10/05/17 12:40: pO2 48, VBG pH 7.39, VBG pCO2 46.0, VBG HCO3 27.8, VBG Total CO2 29.2 H, VBG O2 Sat (Calc) 87.8 H, VBG Base Excess 2.2 H, VBG Potassium 4.2, Sodium 136.0, Chloride 98.0, Glucose 126 H, Lactate 3.2 H, FiO2 21.0, Venous Blood Potassium 4.2 10/05/17 12:40: TSH 3rd Generation 3.02, Alcohol, Quantitative < 10 10/05/17 12:40: WBC 9.8, RBC 5.20, Hgb 15.1, Hct 44.7, MCV 86.0, MCH 29.0, MCHC 33.8, RDW 14.5, Plt Count 174, MPV 10.9, Gran % 68.6 H, Lymph % (Auto) 24.6, [place] % (Auto) 6.5 H, Eos % (Auto) 0.2 L, Baso % (Auto) 0.1, Gran # 6.70 H, Lymph # (Auto) 2.4, [place] # (Auto) 0.6, Eos # (Auto) 0.0, Baso # (Auto) 0.01 I have reviewed the lab results: Yes - RAD Interpretation Radiology Orders: 10/05/17 11:17 GALL BLADDER [US] Stat 10/05/17 13:36 ABD & PELVIS IV CONTRAST ONLY [CT] Stat - Medication Orders Current Medication Orders: Gabapentin (Neurontin) 300 mg PO TID [facility] PRN Reason: Protocol Sodium Chloride (Sodium Chloride 0.9%) 1,000 mls @ 125 mls/hr IV .Q8H [facility] Last Admin: 10/05/17 18:03 Dose: 125 mls/hr eMAR Start Stop Document 10/05/17 18:03 [facility] [place] (Rec: 10/05/17 18:03 [place] [id number]) Intravenous Solution Start Date 10/05/17 Start Time 18:03 End Date 10/05/17 Ketorolac Tromethamine (Toradol) 15 mg IVP Q6H PRN PRN Reason: Pain, moderate (4-7) Last Admin: 10/05/17 18:51 Dose: 15 mg MAR Pain Assessment Document 10/05/17 18:51 [facility] [place] (Rec: 10/05/17 18:52 [place] [id number]) Pain Reassessment Is this a pain reassessment? No Presence of Pain Presence of Pain Yes Pain Scale Used Pain Scale Used Numeric Location Pain Location Body Site Abdomen Description Description Constant Intensity of Pain at present 7 Pain Behavior Irritability Restlessness Alleviating Factors/Management Medication Techniques IVP Administration Document 10/05/17 18:51 [facility] [place] (Rec: 10/05/17 18:52 [place] [id number]) Charges for Administration # of IVP Administrations 1 Morphine Sulfate (Morphine) 4 mg IVP Q4H PRN PRN Reason: Pain, severe (8-10) Ondansetron HCl (Zofran Inj) 4 mg IVP Q6 PRN PRN Reason: Nausea/Vomiting Pantoprazole Sodium (Protonix Inj) 40 mg IVP DAILY [facility] Last Admin: 10/05/17 18:03 Dose: 40 mg IVP Administration Document 10/05/17 18:03 [facility] [place] (Rec: 10/05/17 18:03 [place] [id number]) Charges for Administration # of IVP Administrations 1 Sertraline HCl (Zoloft) 100 mg PO DAILY [facility] Thiamine HCl (Vitamin B1 Tab) 100 mg PO DAILY [facility] Discontinued Medications Fentanyl (Fentanyl) 25 mcg IVP ONCE ONE Stop: 10/05/17 11:19 Last Admin: 10/05/17 12:05 Dose: 25 mcg MAR Pain Assessment Document 10/05/17 12:05 (Rec: 10/05/17 12:05 [email or web address] Pain Reassessment Is this a pain reassessment? No Sleep Is patient sleeping during reassessment? No Presence of Pain Presence of Pain Yes IVP Administration Document 10/05/17 12:05 (Rec: 10/05/17 12:05 [email or web address] Charges for Administration # of IVP Administrations 1 Hydromorphone HCl (Dilaudid) 2 mg IVP STAT STA Stop: 10/05/17 21:04 Last Admin: 10/05/17 21:26 Dose: 2 mg MAR Pain Assessment Document 10/05/17 21:26 (Rec: 10/05/17 21:26 [id number]) Pain Reassessment Is this a pain reassessment? No Sleep Is patient sleeping during reassessment? No Presence of Pain Presence of Pain Yes Pain Scale Used Pain Scale Used Numeric Description Description Constant Pain Behavior Moaning Alleviating Factors/Management Medication Techniques Alleviating Factors Medication IVP Administration Document 10/05/17 21:26 (Rec: 10/05/17 21:26 [id number]) Charges for Administration # of IVP Administrations 1 Sodium Chloride (Sodium Chloride 0.9%) 1,000 mls @ 999 mls/hr IV .Q1H1M STA Stop: 10/05/17 12:19 Last Admin: 10/05/17 12:06 Dose: 999 mls/hr eMAR Start Stop Document 10/05/17 12:06 (Rec: 10/05/17 12:06 [email or web address] Intravenous Solution Start Date 10/05/17 Start Time 12:06 Magnesium 2 gm/50 ml NS (Magnesium Sulfate 2 Gm/50 Ml Ns) 2 gm in 50 mls @ 50 mls/hr IVPB ONCE ONE Stop: 10/05/17 17:35 Last Admin: 10/05/17 17:14 Dose: 50 mls/hr eMAR Start Stop Document 10/05/17 17:14 (Rec: 10/05/17 17:14 [email or web address] Intravenous Solution Start Date 10/05/17 Start Time 17:14 Morphine Sulfate (Morphine) 8 mg IVP STAT STA Stop: 10/05/17 12:22 Last Admin: 10/05/17 12:42 Dose: 8 mg MAR Pain Assessment Document 10/05/17 12:42 (Rec: 10/05/17 12:43 [place] [id number]) Pain Reassessment Is this a pain reassessment? Yes Sleep Is patient sleeping during reassessment? No Presence of Pain Presence of Pain Yes Pain Scale Used Pain Scale Used Numeric IVP Administration Document 10/05/17 12:42 (Rec: 10/05/17 12:43 [place] [id number]) Charges for Administration # of IVP Administrations 1 Morphine Sulfate (Morphine) 8 mg IVP STAT STA Stop: 10/05/17 14:06 Morphine Sulfate (Morphine) 6 mg IVP STAT STA Stop: 10/05/17 14:06 Last Admin: 10/05/17 14:25 Dose: 6 mg MAR Pain Assessment Document 10/05/17 14:25 (Rec: 10/05/17 14:26 [place] [id number]) Pain Reassessment Is this a pain reassessment? Yes Sleep Is patient sleeping during reassessment? No Presence of Pain Presence of Pain Yes Pain Scale Used Pain Scale Used Numeric IVP Administration Document 10/05/17 14:25 (Rec: 10/05/17 14:26 [place] [id number]) Charges for Administration # of IVP Administrations 1 Morphine Sulfate (Morphine) 4 mg IVP STAT STA Stop: 10/05/17 16:13 Last Admin: 10/05/17 17:13 Dose: 4 mg MAR Pain Assessment Document 10/05/17 17:13 (Rec: 10/05/17 17:13 [place] [id number]) Pain Reassessment Is this a pain reassessment? No Sleep Is patient sleeping during reassessment? No Presence of Pain Presence of Pain Yes IVP Administration Document 10/05/17 17:13 (Rec: 10/05/17 17:13 [facility]) Charges for Administration # of IVP Administrations 1 Ondansetron HCl (Zofran Inj) 4 mg IVP STAT STA Stop: 10/05/17 11:24 Last Admin: 10/05/17 12:04 Dose: 4 mg IVP Administration Document 10/05/17 12:04 (Rec: 10/05/17 12:05 [place] [id number]) Charges for Administration # of IVP Administrations 1 Disposition/Present on Arrival - Present on Arrival Any Indicators Present on Arrival: No History of DVT/PE: No History of Uncontrolled Diabetes: No Urinary Catheter: No History of Decub. Ulcer: No History Surgical Site Infection Following: None - Disposition Have Diagnosis and Disposition been Completed?: Yes Diagnosis: Abdominal pain Disposition: HOSPITALIZED Disposition Time: 16:12 Condition: GOOD
[2017-10-05] MEDS ORDERED: Morphine 4 mg/ml ISec IVP STA ×4 (12:21→16:12)
--- NOTE | 2017-10-05 12:24 | US ---
Date of service: 10/05/2017 HISTORY: Right upper quadrant pain COMPARISON: None. TECHNIQUE: Grayscale imaging was performed. FINDINGS: LIVER: Measures 16.6 cm in length. There is diffuse increased echogenicity of the liver parenchyma. No mass. No intrahepatic bile duct dilatation. GALLBLADDER: There are no gallstones, wall thickening or pericholecystic fluid. The sonographic Mahoney's sign is negative. COMMON BILE DUCT: Measures 3.0 mm. No stones. No dilatation. PANCREAS: Unremarkable as visualized. No mass. No ductal dilatation. RIGHT KIDNEY: Measures 10.4 cm in length. Normal echogenicity. No calculus, mass, or hydronephrosis. AORTA: No aneurysmal dilatation. IVC: Unremarkable. OTHER FINDINGS: None . IMPRESSION: No cholelithiasis or biliary dilatation. Mild hepatomegaly. Diffuse increased echogenicity in the liver may reflect hepatic steatosis however parenchymal infectious/ inflammatory etiologies cannot be entirely excluded. Clinical and laboratory correlation is advised.
[2017-10-05 13:07] LABS: VENOUS BLOOD GAS BASE EXCESS 2.2 mmol/L (0.0-2.0); VENOUS BLOOD GAS PO2 48 mm/Hg (30-55); VENOUS BLOOD PH 7.39 (7.32-7.43)
[2017-10-05 13:10] LABS: BASO # 0.01 K/mm3 (0.0-2.0); BASO % 0.1 % (0.0-3.0); EOS % 0.2 % (1.5-5.0); GRAN # 6.7 (1.4-6.5); GRAN % 68.6 % (50.0-68.0); HEMOGLOBIN 15.1 g/dL (14.0-18.0); LYMPH # 2.4 (1.2-3.4); LYMPH % 24.6 % (22.0-35.0); MEAN CORPUSCULAR HGB CONC 33.8 g/dl (31.0-37.0); MEAN PLATELET VOLUME 10.9 fl (7.0-11.0); MONO # 0.6 (0.1-0.6); MONO % 6.5 % (1.0-6.0); RBC 5.2 10^6/uL (3.5-6.1); RED CELL DISTRIBUTION WIDTH 14.5 % (11.5-14.5); WHITE BLOOD COUNT 9.8 10^3/ul (4.5-11.0)
[2017-10-05 13:20] LABS: ALBUMIN 4.9 g/dL (3.0-4.8); BLOOD UREA NITROGEN 9 mg/dL (7-21); CALCIUM 9.7 mg/dL (8.4-10.5); GFR AFRICAN-AMERICAN > 60; GFR NON-AFRICAN AMERICAN > 60
[2017-10-05 13:21] LABS: ALB/GLOB RATIO 1.3 (1.1-1.8); ALT/SGPT 33 U/L (7-56); AST/SGOT 37 U/L (17-59); LIPASE 281 U/L (23-300)
--- NOTE | 2017-10-05 14:52 | CT ---
Date of service: 10/05/2017 PROCEDURE: CT Abdomen and Pelvis with contrast HISTORY: abd pain elevated lactic COMPARISON: None. TECHNIQUE: Contrast dose: 150 cc of Omni 350 Radiation dose: Total exam DLP = 782 mGy-cm. This CT exam was performed using one or more of the following dose reduction techniques: Automated exposure control, adjustment of the mA and/or kV according to patient size, and/or use of iterative reconstruction technique. FINDINGS: LOWER THORAX: Unremarkable. LIVER: Unremarkable. No gross lesion or ductal dilatation. Mild fatty infiltration of the liver GALLBLADDER AND BILE DUCTS: Unremarkable. PANCREAS: There is a large well-defined thick-walled cyst arising from the body of the pancreas consistent with a pseudocyst. This measures 107 mm wide by 74 mm AP x 78 mm in height. There is no evidence of acute inflammation SPLEEN: Unremarkable. ADRENALS: Unremarkable. No mass. KIDNEYS AND URETERS: Unremarkable. No hydronephrosis. No solid mass. VASCULATURE: Unremarkable. No aortic aneurysm. BOWEL: Unremarkable. No obstruction. No gross mural thickening. APPENDIX: Normal appendix. PERITONEUM: Unremarkable. No free fluid. No free air. LYMPH NODES: Unremarkable. No enlarged lymph nodes. BLADDER: Unremarkable. REPRODUCTIVE: Unremarkable. BONES: No acute fracture. OTHER FINDINGS: None. IMPRESSION: There is a large well-defined thick-walled cyst arising from the body of the pancreas consistent with a pseudocyst. This measures 107 mm wide by 74 mm AP x 78 mm in height. There is no evidence of acute inflammation
[2017-10-05 16:29] LABS: VENOUS BLOOD GAS BASE EXCESS 3.3 mmol/L (0.0-2.0); VENOUS BLOOD GAS PO2 48 mm/Hg (30-55); VENOUS BLOOD PH 7.39 (7.32-7.43)
[2017-10-05] MEDS ORDERED: Magnesium 2 gm/50 ml NS 2 GM/50 ML BAG IVPB ONE (16:36)
[2017-10-05] MEDS ORDERED: Morphine 4 mg/ml ISec IVP PRN (17:31)
--- NOTE | 2017-10-05 17:49 | CARD ---
APPROVED REPORT Date of service: 10/05/2017 EKG Measurement Heart [id number] <Conclusion> Normal sinus rhythm Normal ECG
[2017-10-05] MEDS: Sodium Chloride 0.9% 1,000 ML IV SCH (18:03)
[2017-10-05 19:28] LABS: ALB/GLOB RATIO 1.2 (1.1-1.8); ALBUMIN 4.2 g/dL (3.0-4.8); ALT/SGPT 37 U/L (7-56); AST/SGOT 38 U/L (17-59); BLOOD UREA NITROGEN 8 mg/dL (7-21); CALCIUM 8.9 mg/dL (8.4-10.5); GFR AFRICAN-AMERICAN > 60; GFR NON-AFRICAN AMERICAN > 60
--- NOTE | 2017-10-05 19:51 | CP.PCM.HP ---
<Alex Sprague - Last Filed: 10/05/17 20:09> History of Present Illness - History of Present Illness History of Present Illness: Alex Sprague D.O., PGY1, HPI for Dr Marium Graves: abdominal pain 35 year old male with past medical history of ETOH abuse, depression presents with epigastric abdominal pain ongoing for 2 days. patient states that pain has been progressively worsening, radiates to the back. Patient is taking 2 tabs Percocet BID for his chronic pain but did not help. Patient states that he had previous episode of pancreatitis 4 month ago was found to have pancreatic pseudocyst that was scheduled for ERCP on 10/19/17. Patient was not able to go to [facility] where he follow up because his pain was severe. Patient did not drink for 4 months but he had 2 beer 2 weeks ago. Denies having any fevers, chills, CP, palpitation, SOB, anxiety, tremors, fevers or chills, PMH: ETOH abuse, depression, chronic pancreatitis, GERD SH: deviated septum SocHx: drinks occasionally, , ex smoker. active marijuana use. Lives with parents, currently unemployed Meds: Patnoprazole, ALL: NKDA Present on Admission - Present on Admission Any Indicators Present on Admission: No Review of Systems - Constitutional Constitutional: absent: Chills, Fever, Headache - EENT Eyes: absent: Blurred Vision, Change in Vision Ears: absent: Dizziness Nose/Mouth/Throat: absent: Dysphagia, Mouth Lesions - Cardiovascular Cardiovascular: absent: Chest Pain, Orthopnea, Palpitations, Pedal Edema - Respiratory Respiratory: absent: Cough, Dyspnea, Pain on Inspiration - Gastrointestinal Gastrointestinal: Abdominal Pain, Diarrhea, Heartburn, Nausea. absent: Constipation, Hematochezia, Vomiting - Genitourinary Genitourinary: absent: Hematuria, Pyuria, Nocturia - Musculoskeletal Musculoskeletal: Back Pain. absent: Arthralgias, Atrophy, Joint Swelling - Integumentary Integumentary: absent: Lesions, Rash - Neurological Neurological: absent: Dizziness, Numbness, Headaches - Psychiatric Psychiatric: Depression - Endocrine Endocrine: absent: Polyphagia, Polyuria - Hematologic/Lymphatic Hematologic: absent: Easy Bleeding, Easy Bruising Past Patient History - Infectious Disease Hx of Infectious Diseases: None - Tetanus Immunizations Tetanus Immunization: Unknown - Past Social History Smoking Status: Current Some Days Smoker - CARDIAC Hx Cardiac Disorders: Yes Hx Hypertension: Yes - PULMONARY Hx Respiratory Disorders: No - NEUROLOGICAL Hx Neurological Disorder: No - HEENT Hx HEENT Problems: No - RENAL Hx Chronic Kidney Disease: No - ENDOCRINE/METABOLIC Hx Endocrine Disorders: No - HEMATOLOGICAL/ONCOLOGICAL Hx Blood Disorders: No - INTEGUMENTARY Hx Dermatological Problems: No - MUSCULOSKELETAL/RHEUMATOLOGICAL Hx Arthritis: Yes Hx Falls: No - GASTROINTESTINAL Hx Gastrointestinal Disorders: Yes Hx Pancreatitis: Yes - GENITOURINARY/GYNECOLOGICAL Hx Genitourinary Disorders: No - PSYCHIATRIC Hx Anxiety: Yes Hx Depression: Yes Hx Substance Use: Yes - SURGICAL HISTORY Other/Comment: dental surgery - ANESTHESIA Hx Anesthesia Reactions: No Hx Malignant Hyperthermia: No Meds Allergies/Adverse Reactions: Allergies Allergy/AdvReac Type Severity Reaction Status Date / Time No Known Allergies Allergy Verified 10/05/17 11:04 Physical Exam - Constitutional Appears: Non-toxic, In Acute Distress - Head Exam Head Exam: ATRAUMATIC, NORMAL INSPECTION, NORMOCEPHALIC - Eye Exam Eye Exam: EOMI, Normal appearance, PERRL Pupil Exam: NORMAL ACCOMODATION, PERRL - ENT Exam ENT Exam: Mucous Membranes Moist, Normal Exam - Neck Exam Neck exam: Positive for: Normal Inspection - Respiratory Exam Respiratory Exam: Clear to Auscultation Bilateral, NORMAL BREATHING PATTERN - Cardiovascular Exam Cardiovascular Exam: REGULAR RHYTHM - GI/Abdominal Exam GI & Abdominal Exam: Guarding, Normal Bowel Sounds, Soft, Tenderness ( EPIGASTRIC REGION). absent: Distended, Mass, Organomegaly, Pulsatile Mass, Rebound, Rigid - Rectal Exam Rectal Exam: Deferred - Extremities Exam Extremities exam: Positive for: normal inspection - Back Exam Back exam: NORMAL INSPECTION - Neurological Exam Neurological exam: Alert, CN II-XII Intact, Normal Gait, Oriented x3, Reflexes Normal - Psychiatric Exam Psychiatric exam: Anxious - Skin Skin Exam: Dry, Intact, Normal Color, Warm Results - Vital Signs Recent Vital Signs: Last Vital Signs Temp 97.6 F 10/05/17 17:55 Pulse 72 10/05/17 17:55 Resp 18 10/05/17 17:55 BP 139/100 H 10/05/17 17:55 Pulse Ox 98 10/05/17 17:55 - Labs Result Diagrams: 10/05/17 12:40 10/05/17 15:25 Labs: Laboratory Results - last 24 hr 10/05/17 16:21 pO2 48 VBG pH 7.39 VBG pCO2 48.0 VBG HCO3 29.1 H VBG Total CO2 30.6 H VBG O2 Sat (Calc) 82.9 H VBG Base Excess 3.3 H VBG Potassium 3.7 Sodium 136.0 Chloride 100.0 Glucose 129 H Lactate 1.9 FiO2 21.0 Venous Blood Potassium 3.7 Assessment & Plan - Assessment and Plan (Free Text) Assessment: 36 y/o male with PMH of ETOH abuse, pancreatitis, pancreatic pseudocyst and depression presented with 2 days of abdominal pain that radiated to the back. CT abdomen/pelvis showed thick walled pancreatic cyst 74mm x 78mm consistent with pseudocyst, with no evidence of acute inflammation. WBCs 9.8, Lipase 281 Plan: abdominal pain that radiated to the back. CT abdomen/pelvis showed thick walled pancreatic cyst 74mm x 78mm consistent with pseudocyst, with no evidence of acute inflammation. WBCs 9.8, Lipase 281 Abdominal pain in the setting of pancreatic pseudocyst / chronic pancreatitis - Likely due to pancreatic pseudocyst enlargement. no signs of infection. Mahoney sign negative - CT abdomen/pelvis showed thick walled pancreatic cyst 74mm x 78mm consistent with pseudocyst - Lipase 281 - WBCs 9.8 - NPO - IVF: NS @ 125 cc/hr - Zofran - Protonix - Morphine 8 mg given x2 in ED. 4 mg q4h prn while on the floor. patient reported pain is not controlled - GI consulted. recs appreciated - Patient follows up in [facility], scheduled for ERCP on 10/19 -Mg 2 gm given H/O alcohol abuse: -Patient has been sober for 4 month. Only had 2 beers 2 weeks ago -Blood alcohol negative -AST/ALT 38/37 -UDS ordered -Thiamine starts next day H/O GERD -Resume pantoprazole 40 Depression - COntinue home med Zoloft 100 mg daily - SCD ppx Pantoprazole GI ppx Case reviewed and discussed with Dr Wilkins - Date & Time Date: 10/05/17 Time: 17:05 <Marium Wilkins R - Last Filed: 10/06/17 14:49> Results - Vital Signs Recent Vital Signs: Last Vital Signs Temp 97.4 F L 10/06/17 13:09 Pulse 61 10/06/17 13:09 Resp 20 10/06/17 13:09 BP 142/97 H 10/06/17 13:09 Pulse Ox 98 10/06/17 13:09 - Labs Result Diagrams: 10/06/17 06:15 10/06/17 06:15 Labs: Laboratory Results - last 24 hr 10/05/17 10/06/17 10/06/17 16:21 06:15 06:15 WBC 6.9 D RBC 4.86 Hgb 14.4 Hct 42.1 MCV 86.6 MCH 29.6 MCHC 34.2 RDW 14.4 Plt Count 155 MPV 11.5 H Gran % 58.7 Lymph % (Auto) 32.3 [place] % (Auto) 7.3 H Eos % (Auto) 1.6 Baso % (Auto) 0.1 Gran # 4.07 Lymph # (Auto) 2.2 [place] # (Auto) 0.5 Eos # (Auto) 0.1 Baso # (Auto) 0.01 pO2 48 VBG pH 7.39 VBG pCO2 48.0 VBG HCO3 29.1 H VBG Total CO2 30.6 H VBG O2 Sat (Calc) 82.9 H VBG Base Excess 3.3 H VBG Potassium 3.7 Sodium 136.0 139 Chloride 100.0 101 Glucose 129 H Lactate 1.9 FiO2 21.0 Potassium 4.2 Carbon Dioxide 27 Anion Gap 14 BUN 7 Creatinine 0.7 L Est GFR ( Amer) > 60 Est GFR (Non-Af Amer) > 60 Random Glucose 140 H Calcium 9.0 Total Bilirubin 0.9 AST 28 ALT 29 Alkaline Phosphatase 113 Total Protein 7.8 Albumin 4.3 Globulin 3.4 Albumin/Globulin Ratio 1.3 Venous Blood Potassium 3.7 Attending/Attestation - Attestation I have personally seen and examined this patient.: Yes I have fully participated in the care of the patient.: Yes I have reviewed all pertinent clinical information: Yes Notes (Text): Patient seen and examined by me at 5:15PM with resident 10/05/17. Case including HPI, physical exam, and assessment and plan discussed with resident. Agree with above with following additions/corrections. Patient is a 36 year old male with past medical history significant for alcohol abuse, depression, chronic pancreatitis, and GERD that presents to the emergency room with right sided and epigastric abdominal pain. Patient states that the pain started 2 days ago and has progressively become worse. Patient states he had some percocet at home which he states did not help. He states he had some pills left over from March and that he takes a pill whenever he gets this pain. He states the pain usually goes away but did not go away this time. Patient reported to emergency room that he takes dilaudid for pain daily. [employer] reviewed, patient received 15 pills of [facility] The pain is in the epigastric region radiating to right upper quadrant and around the back. Pain is constant and sharp in nature. Pain medications in the ED are helping with the pain. Patient states he is aware that he has a pancreatic pseudocyst and was scheduled for a procedure with his gastroeneterologist on 10/19/17. No associated vomiting. Patient does have nausea. States he has not eaten in one day. No fevers or chills. No headaches or dizziness. No chest pain or shortness of breath. No dysuria. Last alcoholic drink was 2 weeks ago. 12 point review of systems reviewed by me. Please see HPI. All other systems are negative. Family history. Mom and dad are alive and healthy Medications at home. Gabapentin, percocet, protonix, zoloft Physical exam: General: Awake and alert lying in sitting up in bed in no acute distress HEENT: Normocephalic atraumatic. Pupils equal reactive. Extraocular muscles intact. No scleral icterus. Oropharynx is pink and moist. No pharyngeal erythema or exudate appreciated. Hearing grossly intact. Ears and nose externally unremarkable Cardiovascular: Normal rhythm. Normal S1, S2. No murmurs, rubs, or gallops appreciated Pulmonary: Normal respiratory effort. No rhonchi, rales, or wheezing appreciated. Gastrointestinal: Soft, nondistended. Positive tenderness epigastric area and RUQ. Positive bowel sounds all 4 quadrants. No guarding. Musculoskeletal: Normal range of motion all extremities, no calf tenderness, no edema appreciated. Central nervous system: AAOx3. CN2-12 grossly intact. Dermatologic: Skin warm and dry Assessment and plan: Patient is a 36 year old male with past medical history significant for alcohol abuse, depression, chronic pancreatitis, and GERD that presents to the emergency room with right sided and epigastric abdominal pain. 1. Abdominal pain/epigastric pain likely secondary to chronic pancreatitis and pancreatic pseudocyst. Gallbladder ultrasound results pending. CT abd/pelvis per radiologist shows a large well-defined thick-walled cyst arising from the body of the pancreas consistend with a pseudocyst measuring 107mm wide by 74mm AP x 78mm in height; no evidence of acute inflammation. GI consulted, follow up recommendations. NPO. Placed on IV fluids. Lipase within normal limits. Placed on morphine for pain management. 2. History of ETOH abuse. Patient counseled at length on cessation. 3. GERD. Placed on Protonix 4. Depression. Continue home zoloft. 5. Marijuana abuse. Uses daily. Counseled on cessation. Case was discussed in detail with the patient regarding current diagnosis and treatment plan.
[2017-10-05] MEDS ORDERED: HYDROmorphone 2 mg/ml ISec IVP STA (21:03)
[2017-10-06] MEDS ORDERED: HYDROmorphone 2 mg/ml ISec IVP STA (02:05)
[2017-10-06] MEDS: Sodium Chloride 0.9% 1,000 ML IV SCH ×3 (02:20→18:38)
[2017-10-06] MEDS ORDERED: HYDROmorphone 2 mg/ml ISec IM STA (06:31)
[2017-10-06 06:54] LABS: BASO # 0.01 K/mm3 (0.0-2.0); BASO % 0.1 % (0.0-3.0); EOS # 0.1 (0.0-0.7); EOS % 1.6 % (1.5-5.0); GRAN # 4.07 (1.4-6.5); GRAN % 58.7 % (50.0-68.0); HEMOGLOBIN 14.4 g/dL (14.0-18.0); LYMPH # 2.2 (1.2-3.4); LYMPH % 32.3 % (22.0-35.0); MEAN CELL VOLUME 86.6 fl (80.0-105.0); MEAN CORPUSCULAR HEMOGLOBIN 29.6 pg (25.0-35.0); MEAN CORPUSCULAR HGB CONC 34.2 g/dl (31.0-37.0); MEAN PLATELET VOLUME 11.5 fl (7.0-11.0); MONO # 0.5 (0.1-0.6); MONO % 7.3 % (1.0-6.0); RBC 4.86 10^6/uL (3.5-6.1); RED CELL DISTRIBUTION WIDTH 14.4 % (11.5-14.5); WHITE BLOOD COUNT 6.9 10^3/ul (4.5-11.0)
[2017-10-06 07:09] LABS: ALB/GLOB RATIO 1.3 (1.1-1.8); ALBUMIN 4.3 g/dL (3.0-4.8); ALT/SGPT 29 U/L (7-56); AST/SGOT 28 U/L (17-59); BLOOD UREA NITROGEN 7 mg/dL (7-21); GFR AFRICAN-AMERICAN > 60; GFR NON-AFRICAN AMERICAN > 60
[2017-10-06] MEDS ORDERED: HYDROmorphone 1 mg/ml ISec IVP STA (10:55)
--- NOTE | 2017-10-06 13:45 | CP.PCM.PN ---
<Alex Sprague - Last Filed: 10/06/17 20:25> Subjective - Date & Time of Evaluation Date of Evaluation: 10/06/17 Time of Evaluation: 08:32 - Subjective Subjective: Alex Sprague D.O PGY1 Internal Medicine Progress Note for Dr. Brooks Patient seen and examined at bedside. No significant overnight events. Patient' s abdominal pain is improving with pain meds. Patient received Dilaudid last night to control his pain. He is able to ambulate. He denies fever, chills, chest pain, palpitations, or urinary symptoms, N/V, SOB. Objective - Vital Signs/Intake and Output Vital Signs (last 24 hours): Temp Pulse Resp BP Pulse Ox 97.4 F L 61 20 142/97 H 98 10/06/17 13:09 10/06/17 13:09 10/06/17 13:09 10/06/17 13:09 10/06/17 13:09 Intake and Output: 10/06/17 10/06/17 06:59 18:59 Intake Total 0 Balance 0 - Medications Medications: Current Medications Gabapentin (Neurontin) 300 mg PO TID MICHELE PRN Reason: Protocol Hydromorphone HCl (Dilaudid) 2 mg IVP Q4H PRN PRN Reason: Pain, severe (8-10) Sodium Chloride (Sodium Chloride 0.9%) 1,000 mls @ 125 mls/hr IV .Q8H [facility] Last Admin: 10/06/17 09:50 Dose: 125 mls/hr Ondansetron HCl (Zofran Inj) 4 mg IVP Q6 PRN PRN Reason: Nausea/Vomiting Last Admin: 10/06/17 13:02 Dose: 4 mg Pantoprazole Sodium (Protonix Inj) 40 mg IVP DAILY [facility] Last Admin: 10/06/17 09:48 Dose: 40 mg Sertraline HCl (Zoloft) 100 mg PO DAILY [facility] Last Admin: 10/06/17 09:50 Dose: 100 mg Thiamine HCl (Vitamin B1 Tab) 100 mg PO DAILY [facility] Last Admin: 10/06/17 09:50 Dose: 100 mg - Labs Labs: 10/06/17 06:15 10/06/17 06:15 - Constitutional Appears: Well - Head Exam Head Exam: ATRAUMATIC, NORMAL INSPECTION, NORMOCEPHALIC - Eye Exam Eye Exam: EOMI, Normal appearance, PERRL Pupil Exam: NORMAL ACCOMODATION, PERRL - ENT Exam ENT Exam: Mucous Membranes Moist, Normal Exam - Neck Exam Neck Exam: Full ROM, Normal Inspection. absent: Lymphadenopathy - Respiratory Exam Respiratory Exam: Clear to Ausculation Bilateral, NORMAL BREATHING PATTERN - Cardiovascular Exam Cardiovascular Exam: REGULAR RHYTHM, +S1, +S2. absent: Murmur - GI/Abdominal Exam GI & Abdominal Exam: Soft, Tenderness, Normal Bowel Sounds Additional comments: TTP epigastric area - Rectal Exam Rectal Exam: Deferred - Extremities Exam Extremities Exam: Full ROM, Normal Capillary Refill, Normal Inspection. absent : Joint Swelling, Pedal Edema - Back Exam Back Exam: NORMAL INSPECTION - Neurological Exam Neurological Exam: Alert, Awake, CN II-XII Intact, Normal Gait, Oriented x3 - Psychiatric Exam Psychiatric exam: Normal Affect, Normal Mood - Skin Skin Exam: Dry, Intact, Normal Color, Warm Assessment and Plan - Assessment and Plan (Free Text) Assessment: 36 y/o male with PMH of ETOH abuse, pancreatitis, pancreatic pseudocyst and depression presented with 2 days of abdominal pain that radiated to the back. CT abdomen/pelvis showed thick walled pancreatic cyst 74mm x 78mm consistent with pseudocyst, with no evidence of acute inflammation. WBCs 9.8, Lipase 281 Plan: Abdominal pain in the setting of pancreatic pseudocyst / chronic pancreatitis - Likely due to pancreatic pseudocyst enlargement. no signs of infection. Mahoney sign negative - CT abdomen/pelvis showed thick walled pancreatic cyst 74mm x 78mm consistent with pseudocyst -Advance diet to clear liquid. as patient tolerates - WBCs 6.9 today - IVF: NS @ 125 cc/hr - Zofran - Protonix - GI consulted. Patient to be transfered to [facility] for endoscopic drainage of his pseodocyst - Dilaudid prn for pain as per GI consult Dr Santana - Patient follows up in [facility], scheduled for 10/19 GI procedure H/O alcohol abuse: -Patient has been sober for 4 month. Only had 2 beers 2 weeks ago -Blood alcohol negative -AST/ALT 38/37 -Thiamine 100mg daily H/O GERD -Resume pantoprazole 40 Depression - Continue home med Zoloft 100 mg daily - SCD ppx Pantoprazole GI ppx <Rangasamy,Ajantha - Last Filed: 10/07/17 18:53> Objective - Vital Signs/Intake and Output Vital Signs (last 24 hours): Temp Pulse Resp BP Pulse Ox 98.2 F 75 20 159/106 H 95 10/07/17 14:00 10/07/17 14:00 10/07/17 14:00 10/07/17 14:00 10/07/17 14:00 Intake and Output: 10/07/17 10/07/17 06:59 18:59 Intake Total 270 1200 Balance 270 1200 - Medications Medications: Current Medications Gabapentin (Neurontin) 300 mg PO TID MICHELE PRN Reason: Protocol Last Admin: 10/07/17 18:12 Dose: 300 mg Hydromorphone HCl (Dilaudid) 2 mg IVP Q4H PRN PRN Reason: Pain, severe (8-10) Last Admin: 10/07/17 17:15 Dose: 2 mg Sodium Chloride (Sodium Chloride 0.9%) 1,000 mls @ 125 mls/hr IV .Q8H [facility] Last Admin: 10/07/17 10:33 Dose: 125 mls/hr Ondansetron HCl (Zofran Inj) 4 mg IVP Q6 PRN PRN Reason: Nausea/Vomiting Last Admin: 10/06/17 17:22 Dose: 4 mg Pantoprazole Sodium (Protonix Inj) 40 mg IVP DAILY [facility] Last Admin: 10/07/17 09:40 Dose: 40 mg Sertraline HCl (Zoloft) 100 mg PO DAILY [facility] Last Admin: 10/07/17 09:41 Dose: 100 mg Thiamine HCl (Vitamin B1 Tab) 100 mg PO DAILY [facility] Last Admin: 10/07/17 09:40 Dose: 100 mg - Labs Labs: 10/07/17 06:30 10/07/17 06:30 Attending/Attestation - Attestation I have personally seen and examined this patient.: Yes I have fully participated in the care of the patient.: Yes I have reviewed all pertinent clinical information, including history, physical exam and plan: Yes Notes (Text): 10/07/17 18:50 Attending note; Patient seen and examined with resident. Patient is a 36-year-old male with a past medical history of alcohol abuse, pancreatic pseudocyst since March 2017 is admitted with epigastric pain and nausea and vomiting. CT abdomen and pelvis showed 10 x 7 cm pseudopancreatic cyst. Currently patient is nothing by mouth. Continue IV fluids. Initially Started on morphine for pain control. currently patient is on IV Dilaudid. Case discussed with GI Dr. Santana in detail. Case discussed with the [facility] Dr. Echeverria. Patient had pancreatic cyst about the same size since March 2017. Currently planned for EUS October 19. Case also discussed with [facility] GI fellow DR. Wilkins. Advised to continue the current treatment. Start clear liquid diet. Monitor closely.
[2017-10-06] MEDS: HYDROmorphone 2 mg/ml ISec IVP PRN ×3 (15:25→23:04)
--- NOTE | 2017-10-06 15:44 | CON ---
Copied To: Parish Santana MD Attending MD: Parish Santana MD DATE: 10/06/2017 GASTROENTEROLOGY CONSULTATION REQUESTING PHYSICIAN: Nilton Brooks MD REASON FOR CONSULT: I have been asked to see this 35-year-old male with a history of pancreatitis 1 year ago with a pseudocyst diagnosed back in 03/2017, who was scheduled for an endoscopic drainage of pseudocyst in approximately 2 weeks at the [facility], who comes to the hospital with severe epigastric pain for 2 days. He denies any further alcohol use. He admits to some nausea, no vomiting. He denies any fevers or chills. CT scan of the abdomen performed here in the emergency room revealed a large 10 cm x 7 cm x 7 cm pseudocyst in the body of the pancreas. There is no evidence of acute pancreatitis. He is currently requiring narcotic analgesics [id number] for his abdominal pain. He denies any vomiting, fevers, or chills. PAST MEDICAL HISTORY: Notable for acute pancreatitis with a pseudocyst secondary to alcohol abuse, depression, gastroesophageal reflux disease. PAST SURGICAL HISTORY: Notable for a deviated septum. SOCIAL HISTORY: He is a former alcoholic. He states that he has not had a drink in over 6 months. He uses marijuana on a regular basis. He quit smoking years ago. FAMILY HISTORY: Noncontributory. REVIEW OF SYSTEMS: A 14 point review of systems is notable for abdominal pain and nausea. PHYSICAL EXAMINATION: GENERAL: Young male lying in bed, in moderate distress from abdominal pain. VITAL SIGNS: Reveal temperature of 97.5, blood pressure 157/99, heart rate of 75. HEENT: Reveal sclerae to be white. Conjunctivae pink. NECK: Supple. CHEST: Reveals lungs to be clear. HEART: Reveals regular rate and rhythm. ABDOMEN: Soft. There is moderate mid abdominal tenderness with voluntary guarding. There is no rebound. EXTREMITIES: Show no edema. LABORATORY DATA: Reveals white blood cell count 6.9, hemoglobin 14.4. Chemistries reveal normal electrolytes with a blood sugar of 140. IMPRESSION: This is a 36-year-old male with [id number] abdominal pain secondary to large pancreatic pseudocyst. He is scheduled for an endoscopic procedure in approximately 2 weeks at the [facility]. I do not believe that he can wait 2 weeks given his current status of abdominal pain. RECOMMENDATIONS: 1. Continue Dilaudid 2 mg IV every 4 hours. 2. We would try to transfer the patient to the [facility] or another tertiary hepatobiliary center for endoscopic drainage of his large pancreatic pseudocyst. Parish Santana MD
[2017-10-07] MEDS: HYDROmorphone 2 mg/ml ISec IVP PRN ×5 (03:23→22:19)
[2017-10-07 07:36] LABS: EOS # 0.2 (0.0-0.7); EOS % 2.9 % (1.5-5.0); GRAN # 3.74 (1.4-6.5); HEMOGLOBIN 13.5 g/dL (14.0-18.0); LYMPH # 1.8 (1.2-3.4); LYMPH % 29.7 % (22.0-35.0); MEAN CELL VOLUME 86.6 fl (80.0-105.0); MEAN CORPUSCULAR HEMOGLOBIN 29.2 pg (25.0-35.0); MEAN CORPUSCULAR HGB CONC 33.8 g/dl (31.0-37.0); MEAN PLATELET VOLUME 11.9 fl (7.0-11.0); MONO # 0.4 (0.1-0.6); MONO % 6.4 % (1.0-6.0); RBC 4.62 10^6/uL (3.5-6.1); RED CELL DISTRIBUTION WIDTH 14.1 % (11.5-14.5); WHITE BLOOD COUNT 6.1 10^3/ul (4.5-11.0)
[2017-10-07 07:50] LABS: ALB/GLOB RATIO 1.2 (1.1-1.8); ALBUMIN 4.1 g/dL (3.0-4.8); ALT/SGPT 31 U/L (7-56); AST/SGOT 24 U/L (17-59); BLOOD UREA NITROGEN 4 mg/dL (7-21); CALCIUM 8.9 mg/dL (8.4-10.5); GFR AFRICAN-AMERICAN > 60; GFR NON-AFRICAN AMERICAN > 60
--- NOTE | 2017-10-07 10:08 | CP.PCM.PN ---
<EleazaralessandraAlex - Last Filed: 10/07/17 16:13> Subjective - Date & Time of Evaluation Date of Evaluation: 10/07/17 Time of Evaluation: 07:12 - Subjective Subjective: Patient seen and examined at bedside. No significant overnight events. Patient' s abdominal pain is improving with pain meds. Patient receiving Dilaudid to control his pain. He is able to ambulate. No bowel movement last night. He denies chest pain, palpitations, or urinary symptoms, N/V, SOB, fever, chills. Objective - Vital Signs/Intake and Output Vital Signs (last 24 hours): Temp Pulse Resp BP Pulse Ox 97.8 F 85 20 134/101 H 98 10/06/17 21:32 10/06/17 21:32 10/06/17 21:32 10/06/17 21:32 10/06/17 21:32 Intake and Output: 10/07/17 10/07/17 06:59 18:59 Intake Total 270 Balance 270 - Medications Medications: Current Medications Gabapentin (Neurontin) 300 mg PO TID MICHELE PRN Reason: Protocol Last Admin: 10/07/17 09:40 Dose: 300 mg Hydromorphone HCl (Dilaudid) 2 mg IVP Q4H PRN PRN Reason: Pain, severe (8-10) Last Admin: 10/07/17 08:33 Dose: 2 mg Sodium Chloride (Sodium Chloride 0.9%) 1,000 mls @ 125 mls/hr IV .Q8H [facility] Last Admin: 10/06/17 18:38 Dose: 125 mls/hr Ondansetron HCl (Zofran Inj) 4 mg IVP Q6 PRN PRN Reason: Nausea/Vomiting Last Admin: 10/06/17 17:22 Dose: 4 mg Pantoprazole Sodium (Protonix Inj) 40 mg IVP DAILY [facility] Last Admin: 10/07/17 09:40 Dose: 40 mg Sertraline HCl (Zoloft) 100 mg PO DAILY [facility] Last Admin: 10/07/17 09:41 Dose: 100 mg Thiamine HCl (Vitamin B1 Tab) 100 mg PO DAILY [facility] Last Admin: 10/07/17 09:40 Dose: 100 mg - Labs Labs: 10/07/17 06:30 10/07/17 06:30 - Constitutional Appears: Well, No Acute Distress - Head Exam Head Exam: ATRAUMATIC, NORMAL INSPECTION, NORMOCEPHALIC - Eye Exam Eye Exam: EOMI, Normal appearance, PERRL Pupil Exam: NORMAL ACCOMODATION, PERRL - ENT Exam ENT Exam: Mucous Membranes Moist, Normal Exam - Neck Exam Neck Exam: Full ROM, Normal Inspection. absent: Lymphadenopathy - Respiratory Exam Respiratory Exam: Clear to Ausculation Bilateral, NORMAL BREATHING PATTERN - Cardiovascular Exam Cardiovascular Exam: REGULAR RHYTHM, +S1, +S2. absent: Murmur - GI/Abdominal Exam GI & Abdominal Exam: Soft, Tenderness, Normal Bowel Sounds Additional comments: mild tenderness to palpate on epigastric area - Rectal Exam Rectal Exam: Deferred - Extremities Exam Extremities Exam: Full ROM, Normal Capillary Refill, Normal Inspection. absent : Joint Swelling, Pedal Edema - Back Exam Back Exam: NORMAL INSPECTION - Neurological Exam Neurological Exam: Alert, Awake, CN II-XII Intact, Normal Gait, Oriented x3 - Psychiatric Exam Psychiatric exam: Normal Affect, Normal Mood - Skin Skin Exam: Dry, Intact, Normal Color, Warm Assessment and Plan - Assessment and Plan (Free Text) Assessment: 36 y/o male with PMH of ETOH abuse, pancreatitis, pancreatic pseudocyst and depression presented with 2 days of abdominal pain that radiated to the back. CT abdomen/pelvis showed thick walled pancreatic cyst 74mm x 78mm consistent with pseudocyst, with no evidence of acute inflammation. Plan: Abdominal pain in the setting of pancreatic pseudocyst / chronic pancreatitis - Likely due to pancreatic pseudocyst enlargement. no signs of infection. Mahoney sign negative - CT abdomen/pelvis showed thick walled pancreatic cyst 74mm x 78mm consistent with pseudocyst - IVF: NS @ 125 cc/hr - Zofran - Protonix - GI consulted. Patient to be transferred to [facility] for endoscopic drainage of his pseodocyst. Still waiting for transfer otherwise patient will be discharged home and schedule a follow up appointment with [facility]. - Dilaudid prn for pain as per GI consult Dr Santana - Patient follows up in [facility], scheduled for 10/19 GI procedure H/O alcohol abuse: -Blood alcohol negative -AST/ALT 38/37 -Thiamine 100mg daily -Folic acid -Multivitamins H/O GERD -Resume pantoprazole 40 Depression - Continue home med Zoloft 100 mg daily -SCD ppx -Pantoprazole GI ppx - clear liquid diet <Nilton Brooks - Last Filed: 10/07/17 18:55> Objective - Vital Signs/Intake and Output Vital Signs (last 24 hours): Temp Pulse Resp BP Pulse Ox 98.2 F 75 20 159/106 H 95 10/07/17 14:00 10/07/17 14:00 10/07/17 14:00 10/07/17 14:00 10/07/17 14:00 Intake and Output: 10/07/17 10/07/17 06:59 18:59 Intake Total 270 1200 Balance 270 1200 - Medications Medications: Current Medications Gabapentin (Neurontin) 300 mg PO TID MICHELE PRN Reason: Protocol Last Admin: 10/07/17 18:12 Dose: 300 mg Hydromorphone HCl (Dilaudid) 2 mg IVP Q4H PRN PRN Reason: Pain, severe (8-10) Last Admin: 10/07/17 17:15 Dose: 2 mg Sodium Chloride (Sodium Chloride 0.9%) 1,000 mls @ 125 mls/hr IV .Q8H [facility] Last Admin: 10/07/17 10:33 Dose: 125 mls/hr Ondansetron HCl (Zofran Inj) 4 mg IVP Q6 PRN PRN Reason: Nausea/Vomiting Last Admin: 10/06/17 17:22 Dose: 4 mg Pantoprazole Sodium (Protonix Inj) 40 mg IVP DAILY [facility] Last Admin: 10/07/17 09:40 Dose: 40 mg Sertraline HCl (Zoloft) 100 mg PO DAILY [facility] Last Admin: 10/07/17 09:41 Dose: 100 mg Thiamine HCl (Vitamin B1 Tab) 100 mg PO DAILY [facility] Last Admin: 10/07/17 09:40 Dose: 100 mg - Labs Labs: 10/07/17 06:30 10/07/17 06:30 Attending/Attestation - Attestation I have personally seen and examined this patient.: Yes I have fully participated in the care of the patient.: Yes I have reviewed all pertinent clinical information, including history, physical exam and plan: Yes Notes (Text): 10/07/17 18:53 Attending note; Patient seen and examined with resident. Patient is a 36-year-old male with a past medical history of alcohol abuse, pancreatic pseudocyst since March 2017 is admitted with epigastric pain and nausea and vomiting. CT abdomen and pelvis showed 10 x 7 cm pseudopancreatic cyst. Continue IV fluids. currently patient is on IV Dilaudid. Case discussed with GI Dr. Santana in detail. Started on clear liquid diet. Currently tolerating diet. Pain is much better than yesterday. We will call [facility] again tomorrow for the possible transfer. Monitor closely.
[2017-10-07] MEDS: Sodium Chloride 0.9% 1,000 ML IV SCH (10:33)
--- NOTE | 2017-10-07 13:45 | PN ---
Copied To: Parish Santana MD Attending MD: Parish Santana MD DATE: 10/07/2017 SUBJECTIVE: The patient feels better with less abdominal pain. He has required less opiate analgesics [id number]. He does admit to some nausea when he has the pain. PHYSICAL EXAMINATION: VITAL SIGNS: Reveal temperature of 97.8, blood pressure 134/101, heart rate of 85. HEENT: Reveals sclerae to be white. Conjunctivae pink. NECK: Supple. CHEST: Reveals lungs to be clear. HEART: Reveals regular rate and rhythm. ABDOMEN: Soft. There is mild to moderate epigastric tenderness with deep palpation. EXTREMITIES: Show no edema. IMPRESSION: A 36-year-old male with a large 10 x 7 cm x 7 cm pseudocyst in the body of the pancreas causing abdominal pain. RECOMMENDATIONS: 1. We will transfer the patient to [facility] where he has an appointment on 10/18/2017 for an EUS. The patient cannot wait the 10 days for his procedure. This procedure needs to be moved up. 2. We will start the patient on a clear liquid diet. 3. Continue IV Dilaudid for pain control. Parish Santana MD
[2017-10-07] MEDS ORDERED: POLYETHYLENE GLYCOL 3350 17 GM/Dose PACKET PO ONE (14:38)
[2017-10-08] MEDS: Sodium Chloride 0.9% 1,000 ML IV SCH ×3 (04:04→04:47)
[2017-10-08] MEDS: HYDROmorphone 2 mg/ml ISec IVP PRN ×4 (04:56→19:40)
--- NOTE | 2017-10-08 07:44 | CP.PCM.PN ---
<EleazarAlex aparicio - Last Filed: 10/08/17 13:50> Subjective - Date & Time of Evaluation Date of Evaluation: 10/08/17 Time of Evaluation: 05:45 - Subjective Subjective: Patient seen and examined at bedside. No significant overnight events. Patient' s abdominal pain is improved. Patient receiving Dilaudid to control his pain. He is able to ambulate. Had a regular bowel movement this morning. He denies chest pain, palpitations, or urinary symptoms, N/V, SOB, fever, chills. Objective - Vital Signs/Intake and Output Vital Signs (last 24 hours): Temp Pulse Resp BP Pulse Ox 98.1 F 70 20 149/107 H 98 10/07/17 22:00 10/07/17 22:00 10/07/17 22:00 10/07/17 22:00 10/07/17 22:00 Intake and Output: 10/08/17 10/08/17 06:59 18:59 Intake Total 1920 Balance 1920 - Medications Medications: Current Medications Gabapentin (Neurontin) 300 mg PO TID MICHELE PRN Reason: Protocol Last Admin: 10/07/17 18:12 Dose: 300 mg Hydromorphone HCl (Dilaudid) 2 mg IVP Q4H PRN PRN Reason: Pain, severe (8-10) Last Admin: 10/08/17 04:56 Dose: 2 mg Sodium Chloride (Sodium Chloride 0.9%) 1,000 mls @ 125 mls/hr IV .Q8H [facility] Last Admin: 10/08/17 04:47 Dose: 125 mls/hr Ondansetron HCl (Zofran Inj) 4 mg IVP Q6 PRN PRN Reason: Nausea/Vomiting Last Admin: 10/06/17 17:22 Dose: 4 mg Pantoprazole Sodium (Protonix Inj) 40 mg IVP DAILY [facility] Last Admin: 10/07/17 09:40 Dose: 40 mg Sertraline HCl (Zoloft) 100 mg PO DAILY [facility] Last Admin: 10/07/17 09:41 Dose: 100 mg Thiamine HCl (Vitamin B1 Tab) 100 mg PO DAILY [facility] Last Admin: 10/07/17 09:40 Dose: 100 mg - Labs Labs: 10/07/17 06:30 10/07/17 06:30 - Constitutional Appears: Well, No Acute Distress - Head Exam Head Exam: ATRAUMATIC, NORMAL INSPECTION, NORMOCEPHALIC - Eye Exam Eye Exam: EOMI, Normal appearance, PERRL Pupil Exam: NORMAL ACCOMODATION, PERRL - ENT Exam ENT Exam: Mucous Membranes Moist, Normal Exam - Neck Exam Neck Exam: Full ROM, Normal Inspection. absent: Lymphadenopathy - Respiratory Exam Respiratory Exam: Clear to Ausculation Bilateral, NORMAL BREATHING PATTERN - Cardiovascular Exam Cardiovascular Exam: REGULAR RHYTHM, +S1, +S2. absent: Murmur - GI/Abdominal Exam GI & Abdominal Exam: Soft, Normal Bowel Sounds. absent: Tenderness Additional comments: mild TTP epigastric area. - Rectal Exam Rectal Exam: Deferred - Exam Exam: Circumcision, NORMAL INSPECTION External exam: NORMAL EXTERNAL EXAM Speculum exam: NORMAL SPECULUM EXAM Bimanual exam: NORMAL BIMANUAL EXAM - Extremities Exam Extremities Exam: Full ROM, Normal Capillary Refill, Normal Inspection. absent : Joint Swelling, Pedal Edema - Back Exam Back Exam: NORMAL INSPECTION - Psychiatric Exam Psychiatric exam: Normal Affect, Normal Mood - Skin Skin Exam: Dry, Intact, Normal Color, Warm Assessment and Plan - Assessment and Plan (Free Text) Assessment: 36 y/o male with PMH of ETOH abuse, pancreatitis, pancreatic pseudocyst and depression presented with 2 days of abdominal pain that radiated to the back. CT abdomen/pelvis showed thick walled pancreatic cyst 74mm x 78mm consistent with pseudocyst, with no evidence of acute inflammation. Waiting for transfer to [facility] or possible discharge home. Plan: Abdominal pain in the setting of pancreatic pseudocyst / chronic pancreatitis - Abdimonal pain resolved today - Likely due to pancreatic pseudocyst enlargement. no signs of infection. Mahoney sign negative - CT abdomen/pelvis showed thick walled pancreatic cyst 74mm x 78mm consistent with pseudocyst - Diet advanced today to soft as tolerated - Zofran - Protonix - GI consulted. Patient to be transferred to [facility] for endoscopic drainage of his pseudodocyst. Still waiting for a bed. - Dilaudid prn for pain as per GI consult Dr Santana - Patient follows up in [facility], scheduled for 10/19 GI procedure H/O alcohol abuse: -Blood alcohol negative -AST/ALT 38/37 -Thiamine 100mg daily -Folic acid -Multivitamins H/O GERD -Resume pantoprazole 40 Depression - Continue home med Zoloft 100 mg daily <Nilton Brooks - Last Filed: 10/08/17 18:39> Objective - Vital Signs/Intake and Output Vital Signs (last 24 hours): Temp Pulse Resp BP Pulse Ox 97.7 F 66 18 150/99 H 98 10/08/17 16:50 10/08/17 16:50 10/08/17 16:50 10/08/17 16:50 10/08/17 16:50 Intake and Output: 10/08/17 10/08/17 06:59 18:59 Intake Total 1920 240 Balance 1920 240 - Medications Medications: Current Medications Gabapentin (Neurontin) 300 mg PO TID MICHELE PRN Reason: Protocol Last Admin: 10/08/17 18:11 Dose: 300 mg Hydromorphone HCl (Dilaudid) 2 mg IVP Q4H PRN PRN Reason: Pain, severe (8-10) Last Admin: 10/08/17 15:14 Dose: 2 mg Sodium Chloride (Sodium Chloride 0.9%) 1,000 mls @ 125 mls/hr IV .Q8H [facility] Last Admin: 10/08/17 04:47 Dose: 125 mls/hr Metoprolol Tartrate (Lopressor) 50 mg PO Q12 [facility] Last Admin: 10/08/17 13:00 Dose: 50 mg Ondansetron HCl (Zofran Inj) 4 mg IVP Q6 PRN PRN Reason: Nausea/Vomiting Last Admin: 10/06/17 17:22 Dose: 4 mg Pantoprazole Sodium (Protonix Inj) 40 mg IVP DAILY [facility] Last Admin: 10/08/17 10:01 Dose: 40 mg Sertraline HCl (Zoloft) 100 mg PO DAILY [facility] Last Admin: 10/08/17 10:00 Dose: 100 mg Thiamine HCl (Vitamin B1 Tab) 100 mg PO DAILY [facility] Last Admin: 10/08/17 10:00 Dose: 100 mg - Labs Labs: 10/08/17 16:32 10/08/17 16:32 Attending/Attestation - Attestation I have personally seen and examined this patient.: Yes I have fully participated in the care of the patient.: Yes I have reviewed all pertinent clinical information, including history, physical exam and plan: Yes Notes (Text): 10/08/17 18:37 Attending note; Patient seen and examined with resident. Patient is a 36-year-old male with a past medical history of alcohol abuse, pancreatic pseudocyst since March 2017 is admitted with epigastric pain and nausea and vomiting. CT abdomen and pelvis showed 10 x 7 cm pseudopancreatic cyst. Continue IV fluids. currently patient is on IV Dilaudid. Case discussed with GI Dr. Santana in detail. Dr. Santana discussed with GI fellow at [facility]. Started on soft diet. Monitor closely. Case discussed with Dr. araiza in detail. Patient was accepted at [facility]. Case discussed with secondary social studies teacher in detail. Transfer to [facility] when bed available. The treatment plan discussed with patient in detail.
[2017-10-08 16:50] LABS: BASO # 0.01 K/mm3 (0.0-2.0); BASO % 0.1 % (0.0-3.0); EOS # 0.1 (0.0-0.7); GRAN # 4.89 (1.4-6.5); LYMPH # 1.7 (1.2-3.4); LYMPH % 24.4 % (22.0-35.0); MEAN CELL VOLUME 86.9 fl (80.0-105.0); MEAN CORPUSCULAR HGB CONC 34.5 g/dl (31.0-37.0); MEAN PLATELET VOLUME 11.3 fl (7.0-11.0); MONO # 0.3 (0.1-0.6); MONO % 4.5 % (1.0-6.0); RBC 4.67 10^6/uL (3.5-6.1); RED CELL DISTRIBUTION WIDTH 14.4 % (11.5-14.5); WHITE BLOOD COUNT 7.1 10^3/ul (4.5-11.0)
[2017-10-08 16:56] LABS: ALB/GLOB RATIO 1.3 (1.1-1.8); ALBUMIN 4.3 g/dL (3.0-4.8); ALT/SGPT 36 U/L (7-56); AST/SGOT 49 U/L (17-59); BLOOD UREA NITROGEN 7 mg/dL (7-21); CALCIUM 9.5 mg/dL (8.4-10.5); GFR AFRICAN-AMERICAN > 60; GFR NON-AFRICAN AMERICAN > 60
--- NOTE | 2017-10-08 18:15 | PN ---
Copied To: Parish Santana MD Attending MD: Parish Santana MD DATE: 10/08/2017 SUBJECTIVE: The patient is lying in bed. He feels much better. Abdominal pain is less. He is tolerating full liquid diet. He denies any nausea, vomiting. PHYSICAL EXAMINATION: VITAL SIGNS: Reveal temperature of 97.7, blood pressure 150/99, heart rate 66. HEENT: Reveals sclerae to be white. Conjunctivae pink. NECK: Supple. CHEST: Lungs are clear. HEART: Reveals regular rate and rhythm. ABDOMEN: Soft. Moderate epigastric tenderness. No rebound. No guarding. EXTREMITIES: Show no edema. LABORATORY DATA: Reveals white blood cell count 7.1, hemoglobin 14. Chemistries reveal normal electrolytes. IMPRESSION: A 36-year-old male with a large pseudocyst measuring 10 x 7 x 7 cm in the body of the pancreas. The patient is scheduled for an EUS on 10/18/2017 at the [facility]. I do not believe that he can wait any further. RECOMMENDATIONS: I have spoken with the GI attendings at the [facility]. They have agreed to accept the patient on transfer. We are awaiting paperwork to be completed. The patient is stable from a GI standpoint and [facility]. Parish Santana MD
[2017-10-09] MEDS: HYDROmorphone 2 mg/ml ISec IVP PRN ×6 (01:31→21:32)
--- NOTE | 2017-10-09 06:06 | CP.PCM.PN ---
Subjective - Date & Time of Evaluation Date of Evaluation: 10/09/17 Time of Evaluation: 06:06 - Subjective Subjective: Patient seen and examined at bedside. No significant overnight events. Patient' s abdominal pain is improved. Pain is controlled with Dilaudid. He is able to ambulate. He denies chest pain, palpitations, or urinary symptoms, N/V, SOB, fever, chills, blood per rectum, hematemesis. Objective - Vital Signs/Intake and Output Vital Signs (last 24 hours): Temp Pulse Resp BP Pulse Ox 98 F 59 L 20 137/93 H 98 10/08/17 22:53 10/08/17 22:53 10/08/17 22:53 10/08/17 22:53 10/08/17 22:53 Intake and Output: 10/08/17 10/09/17 18:59 06:59 Intake Total 240 Balance 240 - Medications Medications: Current Medications Gabapentin (Neurontin) 300 mg PO TID MICHELE PRN Reason: Protocol Last Admin: 10/08/17 18:11 Dose: 300 mg Hydromorphone HCl (Dilaudid) 2 mg IVP Q4H PRN PRN Reason: Pain, severe (8-10) Last Admin: 10/09/17 05:55 Dose: 2 mg Sodium Chloride (Sodium Chloride 0.9%) 1,000 mls @ 125 mls/hr IV .Q8H [facility] Last Admin: 10/08/17 04:47 Dose: 125 mls/hr Metoprolol Tartrate (Lopressor) 50 mg PO Q12 [facility] Last Admin: 10/08/17 22:43 Dose: 50 mg Ondansetron HCl (Zofran Inj) 4 mg IVP Q6 PRN PRN Reason: Nausea/Vomiting Last Admin: 10/06/17 17:22 Dose: 4 mg Pantoprazole Sodium (Protonix Inj) 40 mg IVP DAILY [facility] Last Admin: 10/08/17 10:01 Dose: 40 mg Sertraline HCl (Zoloft) 100 mg PO DAILY [facility] Last Admin: 10/08/17 10:00 Dose: 100 mg Thiamine HCl (Vitamin B1 Tab) 100 mg PO DAILY [facility] Last Admin: 10/08/17 10:00 Dose: 100 mg - Labs Labs: 10/08/17 16:32 10/08/17 16:32 - Constitutional Appears: Well, No Acute Distress - Head Exam Head Exam: ATRAUMATIC, NORMAL INSPECTION, NORMOCEPHALIC - Eye Exam Eye Exam: EOMI, Normal appearance, PERRL Pupil Exam: NORMAL ACCOMODATION, PERRL - ENT Exam ENT Exam: Mucous Membranes Moist, Normal Exam - Neck Exam Neck Exam: Full ROM, Normal Inspection. absent: Lymphadenopathy - Respiratory Exam Respiratory Exam: Clear to Ausculation Bilateral, NORMAL BREATHING PATTERN - Cardiovascular Exam Cardiovascular Exam: REGULAR RHYTHM, +S1, +S2. absent: Murmur - GI/Abdominal Exam GI & Abdominal Exam: Soft, Normal Bowel Sounds. absent: Tenderness, Mass - Rectal Exam Rectal Exam: Deferred - Extremities Exam Extremities Exam: Full ROM, Normal Capillary Refill, Normal Inspection. absent : Joint Swelling, Pedal Edema - Back Exam Back Exam: NORMAL INSPECTION - Neurological Exam Neurological Exam: Alert, Awake, CN II-XII Intact, Normal Gait, Oriented x3 - Psychiatric Exam Psychiatric exam: Normal Affect, Normal Mood - Skin Skin Exam: Dry, Intact, Normal Color, Warm Assessment and Plan - Assessment and Plan (Free Text) Assessment: 36 y/o male with PMH of ETOH abuse, pancreatitis, pancreatic pseudocyst and depression presented with 2 days of abdominal pain that radiated to the back. CT abdomen/pelvis showed thick walled pancreatic cyst 74mm x 78mm consistent with pseudocyst, with no evidence of acute inflammation. Waiting for transfer to [facility] upon bed availability. Plan: Plan: Abdominal pain in the setting of pancreatic pseudocyst / chronic pancreatitis - Abdominal pain controlled with Dilaudid prn - Likely due to pancreatic pseudocyst enlargement. no signs of infection. Mahoney sign negative - CT abdomen/pelvis showed thick walled pancreatic cyst 74mm x 78mm consistent with pseudocyst - Diet advanced today to soft as tolerated - Continue Zofran, Protonix - Patient was accepted for transfer on Sunday to [facility]. Case discussed with Dr Benjamin in [place]. H/O alcohol abuse: -Blood alcohol negative -Thiamine 100mg daily -Folic acid -Multivitamins H/O GERD -Resume pantoprazole 40 Depression - Continue home med Zoloft 100 mg daily Case reviewed and discussed with Dr. Brooks
--- NOTE | 2017-10-09 15:01 | PN ---
Copied To: Parish Santana MD Attending MD: Parish Santana MD DATE: 10/09/2017 SUBJECTIVE: The patient is sitting up in bed, comfortable. The patient states that his abdominal pain is much less. He is tolerating solid foods. We have made arrangements at the [facility] for the patient to undergo endoscopic ultrasound tomorrow. He is awaiting discharge from [facility] for transfer to [facility]. He is to have an endoscopic ultrasound with possible gastrocystostomy tube placement. Parish Santana MD
[2017-10-09 18:33] LABS: BASO # 0.01 K/mm3 (0.0-2.0); BASO % 0.1 % (0.0-3.0); EOS # 0.2 (0.0-0.7); EOS % 2.5 % (1.5-5.0); GRAN # 3.74 (1.4-6.5); GRAN % 52.3 % (50.0-68.0); HEMOGLOBIN 14.7 g/dL (14.0-18.0); LYMPH # 2.8 (1.2-3.4); LYMPH % 39.4 % (22.0-35.0); MEAN CORPUSCULAR HEMOGLOBIN 29.5 pg (25.0-35.0); MEAN CORPUSCULAR HGB CONC 33.9 g/dl (31.0-37.0); MEAN PLATELET VOLUME 11.7 fl (7.0-11.0); MONO # 0.4 (0.1-0.6); MONO % 5.7 % (1.0-6.0); RBC 4.99 10^6/uL (3.5-6.1); RED CELL DISTRIBUTION WIDTH 14.3 % (11.5-14.5); WHITE BLOOD COUNT 7.2 10^3/ul (4.5-11.0)
[2017-10-09 18:48] LABS: ALB/GLOB RATIO 1.3 (1.1-1.8); ALBUMIN 4.6 g/dL (3.0-4.8); ALT/SGPT 52 U/L (7-56); AST/SGOT 51 U/L (17-59); BLOOD UREA NITROGEN 9 mg/dL (7-21); CALCIUM 9.7 mg/dL (8.4-10.5); GFR AFRICAN-AMERICAN > 60; GFR NON-AFRICAN AMERICAN > 60
--- NOTE | 2017-10-09 22:03 | CP.PCM.DIS ---
Provider - Provider Date of Admission: 10/08/17 15:00 Attending physician: Nilton Brooks MD Primary care physician: CRISTINA Harper [place] Consults: GI: Parish Santana MD Time Spent in preparation of Discharge (in minutes): 35 Diagnosis - Discharge Diagnosis (1) Pancreatic pseudocyst/cyst Status: Chronic Hospital Course - Lab Results Lab Results: Most Recent Lab Values WBC 7.2 10^3/ul (4.5-11.0) 10/09/17 18:32 RBC 4.99 10^6/uL (3.5-6.1) 10/09/17 18:32 Hgb 14.7 g/dL (14.0-18.0) 10/09/17 18:32 Hct 43.4 % (42.0-52.0) 10/09/17 18:32 MCV 87.0 fl (80.0-105.0) 10/09/17 18:32 MCH 29.5 pg (25.0-35.0) 10/09/17 18: MCHC 33.9 g/dl (31.0-37.0) 10/09/17 18:32 RDW 14.3 % (11.5-14.5) 10/09/17 18:32 Plt Count 170 10^3/uL (120.0-450.0) 10/09/17 18:32 MPV 11.7 fl (7.0-11.0) H 10/09/17 18:32 Gran % 52.3 % (50.0-68.0) 10/09/17 18:32 Lymph % (Auto) 39.4 % (22.0-35.0) H 10/09/17 18:32 [place] % (Auto) 5.7 % (1.0-6.0) 10/09/17 18:32 Eos % (Auto) 2.5 % (1.5-5.0) 10/09/17 18:32 Baso % (Auto) 0.1 % (0.0-3.0) 10/09/17 18:32 Gran # 3.74 (1.4-6.5) 10/09/17 18:32 Lymph # (Auto) 2.8 (1.2-3.4) 10/09/17 18:32 [place] # (Auto) 0.4 (0.1-0.6) 10/09/17 18:32 Eos # (Auto) 0.2 (0.0-0.7) 10/09/17 18:32 Baso # (Auto) 0.01 K/mm3 (0.0-2.0) 10/09/17 18:32 pO2 48 mm/Hg (30-55) 10/05/17 16:21 VBG pH 7.39 (7.32-7.43) 10/05/17 16:21 VBG pCO2 48.0 (40-60) 10/05/17 16:21 VBG HCO3 29.1 mmol/l (21-28) H 10/05/17 16:21 VBG Total CO2 30.6 mmol.L (22-28) H 10/05/17 16:21 VBG O2 Sat (Calc) 82.9 % (40-65) H 10/05/17 16:21 VBG Base Excess 3.3 mmol/L (0.0-2.0) H 10/05/17 16:21 VBG Potassium 3.7 mmol/L (3.6-5.2) 10/05/17 16:21 Sodium 136.0 mmol/L (132-148) 10/05/17 16:21 Chloride 100.0 mmol/L (98-107) 10/05/17 16:21 Glucose 129 mg/dl (75-110) H 10/05/17 16:21 Lactate 1.9 mmol/L (0.7-2.1) 10/05/17 16:21 FiO2 21.0 % 10/05/17 16:21 Sodium 141 mmol/L (132-148) 10/09/17 18:32 Potassium 4.5 mmol/L (3.6-5.0) 10/09/17 18:32 Chloride 98 mmol/L (98-107) 10/09/17 18:32 Carbon Dioxide 29 mmol/L (21-33) 10/09/17 18:32 Anion Gap 17 (10-20) 10/09/17 18:32 BUN 9 mg/dL (7-21) 10/09/17 18:32 Creatinine 0.8 mg/dl (0.8-1.5) 10/09/17 18:32 Est GFR ( Amer) > 60 10/09/17 18:32 Est GFR (Non-Af Amer) > 60 10/09/17 18:32 Random Glucose 189 mg/dL (70-110) H 10/09/17 18:32 Calcium 9.7 mg/dL (8.4-10.5) 10/09/17 18:32 Phosphorus 3.0 mg/dL (2.5-4.5) 10/05/17 15:25 Magnesium 1.5 mg/dL (1.7-2.2) L 10/05/17 15:25 Total Bilirubin 0.5 mg/dL (0.2-1.3) 10/09/17 18:32 AST 51 U/L (17-59) 10/09/17 18:32 ALT 52 U/L (7-56) 10/09/17 18:32 Alkaline Phosphatase 92 U/L (38-126) 10/09/17 18:32 Troponin I < 0.01 ng/mL 10/05/17 15:25 Total Protein 8.1 g/dL (5.8-8.3) 10/09/17 18:32 Albumin 4.6 g/dL (3.0-4.8) 10/09/17 18:32 Globulin 3.5 gm/dL 10/09/17 18:32 Albumin/Globulin Ratio 1.3 (1.1-1.8) 10/09/17 18:32 Lipase 281 U/L (23-300) 10/05/17 12:40 TSH 3rd Generation 3.02 mIU/mL (0.46-4.68) 10/05/17 12:40 Venous Blood Potassium 3.7 mmol/L (3.6-5.2) 10/05/17 16:21 Alcohol, Quantitative < 10 mg/dL (0-10) 10/05/17 12:40 - Hospital Course Hospital Course: Patient is a 35 year old male with past medical hisoty that include ETOH abuse, pancreatitis, depression, and history of pancreatic pseudocyst that presented to [facility] ED with a 2 day history of epigastric abdominal pain secondary to pancreatic pseudocyst. Patient was evalauted in ED and found to require increasing amounts of pain medication. Patient was admitted for intractable abdominal pain and increasing pancreatic pseudocyst. Patient reported that he had previous episodes of pancreatitis 4 months prior to presentation secondary to pancreatic pseudocyst. Patient was scheduled for outpatient ERCP on [address] [facility]. Gastroenterology was consulted and evaluated the patient with recommendations to continue with pain management with Dilaudid and to transfer patient from [facility] to [facility] for drainage of large pancreatic psuedocyst. Patient transfer to [facility] was coordinated. At request of [place] in [place] the patient was to be discharged and to attend an appointment on 10/10/[address] [facility] outpatient gastroenterology lab for drainage of pseudocyst. Patient was made aware of situation and was discharged to home with planned follow up for drainage. Patient was stabilized and discharged with outpatient procedure and follow up with primary care in [facility]> Discharge planning including medication reconciliations, outpatient follow up and signs and symptoms to be aware of were discussed. All questions and concers were addressed and patient was able to repeat instructions riya to primary care team. Patient was discharged and primary team followed up post procedure results with [facility]. Discharge Exam - Head Exam Head Exam: ATRAUMATIC, NORMAL INSPECTION, NORMOCEPHALIC - Eye Exam Eye Exam: EOMI, PERRL - ENT Exam ENT Exam: Mucous Membranes Moist - Neck Exam Neck exam: Full Rom - Respiratory Exam Respiratory Exam: Clear to PA & Lateral, NORMAL BREATHING PATTERN - Cardiovascular Exam Cardiovascular Exam: REGULAR RHYTHM, +S1, +S2 - GI/Abdominal Exam GI & Abdominal Exam: Normal Bowel Sounds, Soft, Tenderness (mid epigastric) - Extremities Exam Extremities exam: full ROM, pedal pulses present - Neurological Exam Neurological exam: Alert, CN II-XII Intact, Normal Gait, Oriented x3, Reflexes Normal - Psychiatric Exam Psychiatric exam: Normal Affect, Normal Mood - Skin Skin Exam: Dry, Intact Discharge Plan - Follow Up Plan Condition: GOOD Disposition: OTHER INSTITUTION Instructions: Acid Reflux (Gastroesophageal Reflux Disease), Adult (DC), How to Prepare for Surgery, Pancreatitis (DC), Acute Abdominal Pain (DC) Additional Instructions: 1. Discharge to home to prepare for surgery tomorrow at [facility] medical floor under Dr. Benjamin. 2. Consult GI for EUS.
[2017-10-10] MEDS: HYDROmorphone 2 mg/ml ISec IVP PRN ×2 (01:41→05:46)
[2017-10-10 06:08] VITALS: BP 145/94; PULSE 63; RESP 18; TEMP 97.8; O2SAT 99
== END 2017-10-10 06:12 | disposition home or self-care (01) | DRG 440 ==
LOC: ED 10:51 → ERH 16:12 → 5RSO 17:38 → OBSVTOIN 10-08 15:00
PROVIDERS: ADMIT Internal Medicine; ATTEND Internal Medicine
DX: K86.2 Cyst of pancreas (principal); K86.1 Other chronic pancreatitis; F10.10 Alcohol abuse, uncomplicated; F12.10 Cannabis abuse, uncomplicated; F32.89 Other specified depressive episodes; G89.29 Other chronic pain; I10 Essential (primary) hypertension; J34.2 Deviated nasal septum; K21.9 Gastro-esophageal reflux disease without esophagitis; K86.3 Pseudocyst of pancreas; Z79.899 Other long term (current) drug therapy; Z87.891 Personal history of nicotine dependence